=== PATIENT | male | born 1950 | race Caucasian/White ===

== ENCOUNTER 2017-10-07 12:05 | Emergency (ER) | payer MEDICARE, OTHER ==
[~2017-10-07] VITALS: Ht 167.6 cm; Wt 121.4 kg
--- OUTSIDE RECORDS SUMMARY | ~2017-10-07 | XMS ---
Demographics + + + | Address | [address] | | | [place] [address] | + + + | Preferred Language | Unknown | + + + | Marital Status | Unknown | + + + | Sikh Affiliation | Unknown | + + + | Race | Unknown | + + + | Ethnic Group | Unknown | + + + Author + + + | Author | [facility] | + + + | Organization | [facility] | + + + | Address | [address] | | | [place] [address] | + + + | Phone | | + + + Care Team Providers + + + + | Care Gluer And Wedger Name | Role | Phone | + + + + Unavailable | Unavailable | + + + + PROBLEMS +---------+ + + +--------+ + + | Type | Condition | ICD9-CM | LUB33-GA | Onset | Condition | SNOMED | | | | Code | Code | Dates | Status | Code | +---------+ + + +--------+ + + | Problem | Cardiac | | I49.9 | | Active | [id number] | | | arrhythmia | | | | | | +---------+ + + +--------+ + + | Problem | Hypertensi | | I10 | | Active | [id number] | | | on | | | | | | +---------+ + + +--------+ + + ALLERGIES + + + + +--------+ | Substance | Reaction | Event Type | Date | Status | + + + + +--------+ | Codeine | change in | Drug Allergy | Mar, | Active | | | mental status | | | | + + + + +--------+ | Norvasc | change in | Drug Allergy | Mar, | Active | | | mental status | | | | + + + + +--------+ SOCIAL HISTORY Never Assessed PLAN OF CARE + +---------+ | Activity | Details | + +---------+ +---+ | | +---+ + + + | Follow Up | 4 Weeks Reason:null | + + + | Pending Test | Urinalysis, w/Culture Reflex | + + + VITAL SIGNS + + + + | Height | 66 in | 2017-04-17 | + + + + | Weight | 264.0 lbs | 2017-04-17 | + + + + | BMI | 42.61 kg/m2 | 2017-04-17 | + + + + | Temperature | 97.9 degrees Fahrenheit | 2017-04-17 | + + + + | Heart Rate | 89 /min | 2017-04-17 | + + + + | Blood pressure systolic | 159 mm Hg | 2017-04-17 | + + + + | Blood pressure diastolic | 84 mm Hg | 2017-04-17 | + + + + MEDICATIONS + + + + +--------+ + +--------+ | Medicati | Instruct | Dosage | Frequenc | Start | End Date | Duration | Status | | on | ions | | y | Date | | | | + + + + +--------+ + +--------+ | Pantopra | Orally | 1 tablet | 24h | | | 30 days | Active | | zole | Once a | | | | | | | | Sodium | day | | | | | | | | 40 MG | | | | | | | | + + + + +--------+ + +--------+ | Warfarin | Orally | 1 tablet | 24h | | | | Active | | Sodium | Once a | | | | | | | | 8 mg | day | | | | | | | + + + + +--------+ + +--------+ | Trimetho | Orally | 1 tablet | | | | | Active | | prim 100 | prn | | | | | | | | mg | | | | | | | | + + + + +--------+ + +--------+ | Lisinopr | Orally | 1 tablet | 12h | | | 30 days | Active | | il 40 MG | Twice a | | | | | | | | | day | | | | | | | + + + + +--------+ + +--------+ | Metformi | | 1 tab | | | | | Active | | n | | | | | | | | + + + + +--------+ + +--------+ | Percocet | Orally | 1 tablet | 6h | | | | Active | | 2.5-325 | every 6 | as | | | | | | | MG | hrs | needed | | | | | | + + + + +--------+ + +--------+ | Verapami | Orally | 1 tablet | 12h | | | 30 days | Active | | l HCl | Twice a | every | | | | | | | 240 MG | day | morning | | | | | | | | | with | | | | | | | | | food | | | | | | + + + + +--------+ + +--------+ | Sucralfa | Orally | 1 tablet | 8h | | | 30 days | Active | | te 1 GM | Three | | | | | | | | | times a | | | | | | | | | day | | | | | | | + + + + +--------+ + +--------+ | Metoclop | Orally | 1 tablet | | | | 30 days | Active | | ramide | QHS | | | | | | | | HCl 10 | | | | | | | | | MG | | | | | | | | + + + + +--------+ + +--------+ | Potassim | Orally | 1 tablet | 24h | | | | Active | | in 75 MG | Once a | | | | | | | | | day | | | | | | | + + + + +--------+ + +--------+ | Ropiniro | Orally | 1 tablet | | | | | Active | | le HCl | as | | | | | | | | 0.25 MG | directed | | | | | | | + + + + +--------+ + +--------+ | Gabapent | Orally | 1 | | | | | Active | | in 100 | four | capsule | | | | | | | mg | times | | | | | | | | | day | | | | | | | + + + + +--------+ + +--------+ | GlipiZID | Orally | 1 tablet | 24h | | | | Active | | E 10 MG | Once a | | | | | | | | | day | | | | | | | + + + + +--------+ + +--------+ RESULTS + +--------+ + + | Name | Result | Date | Reference Range | + +--------+ + + | Urinalysis, Dip | | 2017-04-17 | | | (IH) | | | | + +--------+ + + | Specific Boyds | 1.025 | | | + +--------+ + + | pH | 5 | | | + +--------+ + + | Leukocytes | 500 | | | + +--------+ + + | Nitrite, Urine | pos | | | + +--------+ + + | Protein | 30 | | | + +--------+ + + | Glucose | 100 | | | + +--------+ + + | Ketones | neg | | | + +--------+ + + | Urobilingen, | norm | | | | Semi-Qn | | | | + +--------+ + + | Bilirubin | neg | | | + +--------+ + + | Blood Hemoglobin | 50 | | | | (BLD) | | | | + +--------+ + + PROCEDURES + + +--------+ + | Procedure | Date Ordered | Result | Body Site | + + +--------+ + | LAB URINALYSIS (DIP | Apr 17, 2017 | | | | STICK ONLY | | | | + + +--------+ + | US URINE CAPACITY | Sept 2016 | | | | MEASURE | | | | + + +--------+ + IMMUNIZATIONS No Known Immunizations MEDICAL (GENERAL) HISTORY + + + + | Type | Description | Date | + + + + | Medical History | Hypertension | | + + + + | Medical History | SVT - was evaluated by | | | | [facility] 2008 | | + + + + | Medical History | diabetes mallitus | | + + + + | Medical History | Urinary Incontinence - on | | | | prophylactic abx. | | + + + + | Medical History | Spinal Bifida - uses a | | | | walker, gets assistance | | | | with bathing, and dressing, | | | | high fall risk. | | + + + + | Medical History | hx/o ischemic colitis 2010 | | + + + + | Medical History | GERD | | + + + + | Medical History | Obesity | | + + + + | Medical History | Insomnia | | + + + + | Medical History | Right shoulder injury 2005 | | | | - on chronic opioids | | | | hydrocodone two at | | | | bedtime | | + + + + | Medical History | uses a walker since 05/2013 | | + + + + | Medical History | Peripheral neuropathy | | | | started on gabapentin by | | | | Be in 2013 | | + + + + | Medical History | Atrial fibrillation | | + + + + | Medical History | depression | | + + + + | Medical History | osteoarthritis | | + + + + | Medical History | ischemic colitis | | + + + + | Surgical History | Colonoscopy | 2007 2009 | + + + + | Surgical History | Cholecystectomy | 1988 | + + + + | Surgical History | Urethral stenosis s/p | 14yrs old | | | repair | | + + + + | Surgical History | multiple graft bones in | 1954 | | | shins and feet due to lack | | | | of development | | + + + + | Surgical History | EGD | 2007 | + + + + | Surgical History | surgeries for spina bifida | | | | x21 | | + + + + | Surgical History | appendectomy | | + + + + | Surgical History | bladder mass exision | 1965 | + + + + | Surgical History | testicle cyst removal age | | | | 32 | | + + + + | Surgical History | Bladder calculus | | + + + + | Hospitalization History | [facility] re: chest pain | 11/19/13 | + + + + | Hospitalization History | Sepsis due to UTI | June 2016 | + + + +"
--- OUTSIDE RECORDS SUMMARY | ~2017-10-07 | XMS | Clinical Summary ---
Demographics + + + | Address | [address] | | | [address] | | | [place] [address] | + + + | Home Phone | | + + + | Preferred Language | Unknown | + + + | Marital Status | Single | + + + | Methodist Affiliation | SYNAGOGUE | + + + | Race | White | + + + | Ethnic Group | Not or | + + + Author + + + | Author | [facility] | + + + | Organization | [facility] | + + + | Address | Unknown | + + + | Phone | Unavailable | + + + Support + + +---------+ + | Name | Relationship | Address | Phone | + + +---------+ + | KANDI PEARSON | ECON | Unknown | | + + +---------+ + Care Team Providers + +------+ + | Care Supply Analyst Name | Role | Phone | + +------+ + | Unknown, Physician | PP | Unavailable | + +------+ + Allergies + + + +--------+ + | Active Allergy | Reactions | Severity | Noted | Comments | | | | | Date | | + + + +--------+ + | Amlodipine | | | | | + + + +--------+ + | Codeine | | | | | + + + +--------+ + Current Medications + + +---------+---------+------+------+-------+ | Prescription | Sig. | Disp. | Refills | Star | End | Statu | | | | | | t | Date | s | | | | | | Date | | | + + +---------+---------+------+------+-------+ | polyethylene | Take 1 packet by | | 6 | 06/0 | | Activ | | glycol (MIRALAX) 17 | mouth 2 Times Daily | | | 5/20 | | e | | gram/dose powder | As Needed. | | | 10 | | | + + +---------+---------+------+------+-------+ | acetaminophen | Take 1 tablet by | | 0 | 10/2 | | Activ | | (MAPAP EXTRA | mouth Every 6 Hours | | | 7/20 | | e | | STRENGTH) 500 mg | As Needed. | | | 09 | | | | tablet | | | | | | | + + +---------+---------+------+------+-------+ | Glucosamine | Take 1 capsule by | | 5 | 10/2 | | Activ | | Sulfate 500 mg Cap | mouth Daily. | | | 7/20 | | e | | | | | | 09 | | | + + +---------+---------+------+------+-------+ | metoclopramide | Take 1 tablet by | | 1 | 06/3 | | Activ | | (REGLAN) 10 mg | mouth 4 Times Daily. | | | 0/20 | | e | | tablet | | | | 10 | | | + + +---------+---------+------+------+-------+ | amitriptyline | Take 2 tablets by | | 5 | 04/2 | | Activ | | (ELAVIL) 10 mg | mouth At Bedtime As | | | 1/20 | | e | | tablet | Needed. | | | 10 | | | + + +---------+---------+------+------+-------+ | ibuprofen | Take 600 mg by mouth | | | | | Activ | | (ADVIL;MOTRIN) 600 | Every 6 Hours As | | | | | e | | mg tablet | Needed. | | | | | | + + +---------+---------+------+------+-------+ | sucralfate | Take 1 tablet by | 120 | 11 | 11/0 | | Activ | | (CARAFATE) 1 gram | mouth 4 Times Daily | tablet | | 8/20 | | e | | tablet | (with Meals and | | | 11 | | | | | Nightly). | | | | | | + + +---------+---------+------+------+-------+ | aspirin 81 mg | Take 81 mg by mouth | | | | | Activ | | chewable tablet | Daily. | | | | | e | + + +---------+---------+------+------+-------+ | lisinopril | Take 1 tablet by | 60 | 11 | 01/3 | | Activ | | (PRINIVIL;ZESTRIL) | mouth 2 Times Daily. | tablet | | 0/20 | | e | | 40 mg tablet | | | | 12 | | | + + +---------+---------+------+------+-------+ | | Take 1 tablet by | 60 | 0 | 06/1 | | Activ | | HYDROcodone-acetamin | mouth Every 4 Hours. | tablet | | 8/20 | | e | | ophen (VICODIN) | | | | 12 | | | | 5-500 mg Tab | | | | | | | + + +---------+---------+------+------+-------+ | verapamil (CALAN | | | | 05/0 | | Activ | | SR) 240 mg CR tablet | | | | 9/20 | | e | | | | | | 12 | | | + + +---------+---------+------+------+-------+ | | Take 1 tablet by | | | | | Activ | | amoxicillin-clavulan | mouth 2 Times Daily. | | | | | e | | ate (AUGMENTIN) | | | | | | | | 875-125 mg per | | | | | | | | tablet | | | | | | | + + +---------+---------+------+------+-------+ | omeprazole | Take 1 capsule by | 60 | 1 | 08/0 | | Activ | | (PRILOSEC) 20 mg | mouth 2 Times Daily | capsule | | 6/20 | | e | | capsule | As Needed. | | | 12 | | | + + +---------+---------+------+------+-------+ | digoxin (LANOXIN) | Take 1 tablet by | 30 | 2 | 09/2 | | Activ | | 125 mcg tablet | mouth Daily. | tablet | | 7/20 | | e | | | | | | 12 | | | + + +---------+---------+------+------+-------+ Active Problems + + + | Problem | Noted Date | + + + | Colitis, ischemic (HCC) | 01/18/2012 | + + + | Nodule of neck | 07/15/2011 | + + + + + | Overview: He has a approx 1 cm firm, mobile nodule on the | | left lateral neck. States he has had it for years. Has been | | evaluated by Dr. Gambino and another doctor and was told it was | | not a problem, but patient doesn't recall what it is. He states | | is has drained before. It is non-tender and has not grown. No | | known history of TB.-lymph node vs. Branchial cleft cyst-CBC | | mildly elevated, likely secondary to infection. Lymphoma would | | seem less likely, no b symptoms, nodule appears stable, no | | others-Ultrasound ordered Last Assessment & Plan: He has a | | approx 1 cm firm, mobile nodule on the left lateral neck. States | | he has had it for years. Has been evaluated by Dr. Gambino and | | another doctor and was told it was not a problem, but patient | | doesn't recall what it is. He states is has drained before. It | | is non-tender and has not grown. No known history of TB.-lymph | | node vs. Branchial cleft cyst-CBC mildly elevated, likely | | secondary to infection. Lymphoma would seem less likely, no b | | symptoms, nodule appears stable, no others-Ultrasound ordered | + + + + + | Healthcare maintenance | 07/15/2011 | + + + | Insomnia, unspecified | 01/22/2009 | + + + + + | Overview: concern for sleep apnea | + + + + + | Other abnormal blood chemistry | 01/22/2009 | + + + + + | Overview: elevated blood sugar | + + + + + | Generalized hyperhidrosis | 01/22/2009 | + + + + + | Overview: associated with tachcardia 50% of time | + + + + + | Pain in joint, shoulder region | 04/20/2008 | + + + + + | Overview: right,recent fall | + + + + + | Tachycardia, unspecified | 04/13/2008 | + + + + + | Overview: palpitations?paroxsymal a fib? | + + +---------+ + | Dysuria | 12/23/2007 | +---------+ + + + | Overview: nocturia,chnages with spina bifida | + + + + + | Retention of urine, unspecified | 12/23/2007 | + + + + + | Overview: related to spina bifida | + + + + + | Cardiac dysrhythmia, unspecified | 09/29/2007 | + + + + + | Overview: 427.89,by pt report | + + + + + | Slow transit constipation | 09/29/2007 | + + + | Unspecified essential hypertension | 02/18/2007 | + + + | Esophageal reflux | 02/18/2007 | + + + + + | Overview: with dysphagia | + + +-----+ + | UTI | 02/18/2007 | +-----+ + + + | Overview: as a history of spina bifida with recurrent uti's. | | He has a report of neurogenic bladder, but denies any issues | | with continence. He states he has been on antibiotic for nearly | | his entire life. Most recently is has been on nitrofurantoin for | | the last year. He reports having some sort of growth removed | | from his bladder as a child, and was seen by Dr. Quintana (urology) | | around 2007 for what sounds like a stricture. His most recent | | urinalyses have been mixed, but the last speciated sample grew | | Klebsiella that was resistant to both cipro and macrobid. Last | | Assessment & Plan: History of chronic UTI's since childhood. | | Appears to be improving.-check UA-Hold antibiotics for now | + + + + + | Osteoarthrosis, unspecified whether generalized or localized, | 02/18/2007 | | unspecified site | | + + + + + | Overview: mutiple sites | + + + + + | Spina bifida without mention of hydrocephalus, unspecified region | 02/18/2007 | + + + + + | Overview: multiple surg on feet,legs, altered gait | + + + +---+ | Spina bifida | | + +---+ Immunizations + + + + | Name | Dates Previously Given | Next Due | + + + + | Influenza | 12/28/2009, 05/10/2007 | | | (Historical) | | | + + + + | Influenza, Preserve | 05/15/2011 | | | Free | | | + + + + | Pneumovax | 12/28/2009 | | + + + + Family History + + +------+ + | Medical History | Relation | Name | Comments | + + +------+ + | Cancer | Father | | | + + +------+ + | Heart Disease | Father | | | + + +------+ + | High Blood Pressure | Father | | | + + +------+ + | Arthritis | Maternal | | | | | Grandmoth | | | | | er | | | + + +------+ + | Diabetes | Maternal | | | | | Grandmoth | | | | | er | | | + + +------+ + | High Blood Pressure | Maternal | | | | | Grandmoth | | | | | er | | | + + +------+ + | Arthritis | Mother | | | + + +------+ + | Depression | Mother | | | + + +------+ + | Diabetes | Mother | | | + + +------+ + | Heart Disease | Mother | | | + + +------+ + | High Blood Pressure | Mother | | | + + +------+ + | Obesity | Mother | | | + + +------+ + | Thyroid Disease | Mother | | | + + +------+ + | Vision Loss | Mother | | | + + +------+ + + +------+ + + | Relation | Name | Status | Comments | + +------+ + + | Father | | | | + +------+ + + | Maternal Grandfather | | | | + +------+ + + | Maternal Grandmother | | | | + +------+ + + | Mother | | Alive | | + +------+ + + | Paternal Grandfather | | | | + +------+ + + | Paternal Grandmother | | | | + +------+ + + | Sister | | Alive | | + +------+ + + Social History + +-------+ +--------+------+ | Tobacco Use | Types | Packs/Day | Years | Date | | | | | Used | | + +-------+ +--------+------+ | Never Smoker | | | | | + +-------+ +--------+------+ + +---+---+---+ | Smokeless Tobacco: | | | | | Never Used | | | | + +---+---+---+ + + +---------+ + | Alcohol Use | Drinks/We | oz/Week | Comments | | | ek | | | + + +---------+ + | No | | | | + + +---------+ + + + + | Sex Assigned at | Date Recorded | | | | + + + | Not on file | | + + + Last Filed Vital Signs + + + + | Vital Sign | Reading | Time Taken | + + + + | Blood Pressure | 163/87 | 01/20/2012 1:41 PM PDT | + + + + | Pulse | 69 | 01/20/2012 1:41 PM PDT | + + + + | Temperature | 35.3 C (95.5 F) | 01/20/2012 1:41 PM PDT | + + + + | Respiratory Rate | 20 | 01/20/2012 1:41 PM PDT | + + + + | Oxygen Saturation | 95% | 01/20/2012 1:41 PM PDT | + + + + | Inhaled Oxygen | - | - | | Concentration | | | + + + + | Weight | 104.4 kg (230 lb 4 | 07/22/2011 11:08 AM PST | | | oz) | | + + + + | Height | 167.6 cm (5' 6") | 07/22/2011 11:08 AM PST | + + + + | Body Mass Index | 37.16 | 07/22/2011 11:08 AM PST | + + + + Plan of Treatment + + + + + | Health Maintenance | Due Date | Last Done | Comments | + + + + + | Hep C Ab Screening | | | | | | 3 | | | + + + + + | HIV Screening | | | | | | 8 | | | + + + + + | Tetanus | | | | | | 2 | | | + + + + + | Zoster Vaccine | | | | | | 3 | | | + + + + + | Diabetes Mellitus | | 01/20/2012, 01/19/2012, | | | Screening | 5 | 01/18/2012, Additional history | | | | | exists | | + + + + + | IMM Influenza (#1) | | 05/15/2011, 12/28/2009, | | | | 7 | 05/10/2007 | | + + + + + | Colon Cancer | | 10/13/2008 (Previously | | | Screening | 9 | completed) | | + + + + + Results Not on filefrom Last 3 Months Insurance + +--------+ +--------+ + + | Payer | Benefi | Subscriber | Type | Phone | Address | | | t Plan | ID | | | | | | / | | | | | | | Group | | | | | + +--------+ +--------+ + + | MEDICARE | MEDICA | [id number] | Medica | [phone] | [address] | | | RE [place] & | | re | [phone] | [place] [phone] | | | B | | | | | + +--------+ +--------+ + + | [place] | MEDICA | [id number] | Medica | [phone]- | [address] [address] | | | [place] | | id | [id number] | [place] [address] | | | DMAP | | | | | + +--------+ +--------+ + + + +--------+ +--------+ + + | Guarantor Name | Accoun | Relation to | Date | Phone | Billing Address | | | t Type | Patient | of | | | | | | | | | | + +--------+ +--------+ + + | HELDER BAJWA | Person | Self [birth year] Home: | [address] | | | al/Fam | | 1951 | [phone] | [address] | | | niko | | | [phone] | [place] [address] | + +--------+ +--------+ + + Advance Directives Patient has advance directives. For more information, please contact:[facility] [place] [address]
--- OUTSIDE RECORDS SUMMARY | ~2017-10-07 | XMS ---
Demographics + + + | Address | [address] | | | [place] [address] | + + + | Preferred Language | Unknown | + + + | Marital Status | Unknown | + + + | Oriental Orthodox Affiliation | Unknown | + + + | Race | Unknown | + + + | Ethnic Group | Unknown | + + + Author + + + | Author | [facility] | + + + | Organization | [facility] | + + + | Address | [address] | | | [place] [address] | + + + | Phone | | + + + Care Team Providers + + + + | Care Ciaio Counter Molder Name | Role | Phone | + + + + Unavailable | Unavailable | + + + + PROBLEMS +---------+ + + +--------+ + + | Type | Condition | ICD9-CM | LYS35-ND | Onset | Condition | SNOMED | | | | Code | Code | Dates | Status | Code | +---------+ + + +--------+ + + | Problem | Cardiac | | I49.9 | | Active | [id number] | | | arrhythmia | | | | | | +---------+ + + +--------+ + + | Problem | Hypertensi | | I10 | | Active | [id number] | | | on | | | | | | +---------+ + + +--------+ + + ALLERGIES No Information SOCIAL HISTORY Never Assessed PLAN OF CARE VITAL SIGNS MEDICATIONS + + + + + + + +--------+ | Medicati | Instruct | Dosage | Frequenc | Start | End Date | Duration | Status | | on | ions | | y | Date | | | | + + + + + + + +--------+ | Percocet | Orally | 1 tablet | 6h | | | | Active | | 2.5-325 | every 6 | as | | | | | | | MG | hrs | needed | | | | | | + + + + + + + +--------+ | Ropiniro | Orally | 1 tablet | | | | | Active | | le HCl | as | | | | | | | | 0.25 MG | directed | | | | | | | + + + + + + + +--------+ | Metformi | | 1 tab | | | | | Active | | n | | | | | | | | + + + + + + + +--------+ | GlipiZID | Orally | 1 tablet | 24h | | | | Active | | E 10 MG | Once a | | | | | | | | | day | | | | | | | + + + + + + + +--------+ | Trimetho | Orally | 1 tablet | | | | | Active | | prim 100 | prn | | | | | | | | mg | | | | | | | | + + + + + + + +--------+ | Pantopra | Orally | 1 tablet | 24h | | | 30 days | Active | | zole | Once a | | | | | | | | Sodium | day | | | | | | | | 40 MG | | | | | | | | + + + + + + + +--------+ | Lisinopr | Orally | 1 tablet | 12h | | | 30 days | Active | | il 40 MG | Twice a | | | | | | | | | day | | | | | | | + + + + + + + +--------+ | Bactrim | Orally | 1 tablet | | 26 Sep, | 25 Dec, | 30 days | Active | | DS | once | | | 2017 | 2017 | | | | 800-160 | daily at | | | | | | | | MG | bedtime | | | | | | | + + + + + + + +--------+ | Warfarin | Orally | 1 tablet | 24h | | | | Active | | Sodium | Once a | | | | | | | | 8 mg | day | | | | | | | + + + + + + + +--------+ | Doxycycl | Oral | as | 12h | 26 Sep, | 3 Oct, | 7 days | Active | | ine | every 12 | directed | | 2017 | 2017 | | | | Hyclate | hrs | | | | | | | | 100 MG | | | | | | | | + + + + + + + +--------+ | Sucralfa | Orally | 1 tablet | 8h | | | 30 days | Active | | te 1 GM | Three | | | | | | | | | times a | | | | | | | | | day | | | | | | | + + + + + + + +--------+ | Potassim | Orally | 1 tablet | 24h | | | | Active | | in 75 MG | Once a | | | | | | | | | day | | | | | | | + + + + + + + +--------+ | Gabapent | Orally | 1 | | | | | Active | | in 100 | four | capsule | | | | | | | mg | times | | | | | | | | | day | | | | | | | + + + + + + + +--------+ | Metoclop | Orally | 1 tablet | | | | 30 days | Active | | ramide | QHS | | | | | | | | HCl 10 | | | | | | | | | MG | | | | | | | | + + + + + + + +--------+ | Verapami | Orally | [...] + + + + + + + +--------+ RESULTS No Results PROCEDURES No Known procedures IMMUNIZATIONS No Known Immunizations MEDICAL (GENERAL) HISTORY [...] | Medical History | hx/o ischemic colitis 2009 | | + + + + | Medical History | GERD | | + + + + | Medical History | Obesity | | + + + + | Medical History | Insomnia | | + + + + | Medical History | Right shoulder injury 2005 | | | | - on chronic opioids | | | | hydrocodone 5/325 two at | | | | bedtime [...] + | Surgical History | EGD | 2006 | + + + + | Surgical [...]
--- OUTSIDE RECORDS SUMMARY | ~2017-10-07 | XMS | Clinical Summary ---
Demographics + + + | Address | [address] | | | [address] | | | [place] [address] | + + + | Home Phone | | + + + | Preferred Language | Unknown | + + + | Marital Status | Single | + + + | Protestant Affiliation | [employer]IENTAL [employer]OX | + + + | Race | [...] Team Providers + +------+ + | Care Sprayer Automatic Spray Machine Name | Role | Phone | [...] + + | MEDICARE | MEDICA | [id number] | Medica | [phone] | [address] | | | RE A & | | re | [phone] | [place] [phone] | | | B | | | | | + +--------+ +--------+ + + | [place]ID [place] | MEDICA | [id number] | Medica | [phone] | [address] [address] | | | [place] | | id | [phone] | [place] [address] | | | DMAP | | | [...] | niko | | | [phone] | [place] [address] | + +--------+ +--------+ + + Advance Directives Patient has advance directives. For more information, please contact:[facility] [place] [address]
[~2017-10-07 12:05] MED LIST: AMITRIPTYLINE H10 MG; ASPIRIN EC81 MG; AUGMENTIN 875-1 EACH PO; BACTRIM 400-801 EACH PO; BACTRIM DS TAB1 EACH PO; CARAFATE1 GM PO; CEPHALEXIN250 MG; CHLORTHALIDONE25 MG; CHLORTHALIDONE25 MG PO; CIPROFLOXACIN500 MG PO; COLACE100 MG PO; CYMBALTA20 MG PO; DESITIN60 GM TOP; DIGOXIN125 MCG PO; DIGOXIN250 MCG PO; DOCUSATE SODIU100 MG; DOCUSATE SODIU100 MG PO; DULOXETINE HCL20 MG PO; GABAPENTIN100 MG PO; GLIPIZIDE XL10 MG PO; GLIPIZIDE XL5 MG PO; GLUCOSAMINE SU750 M1; GLUCOSAMINE1000 MG PO; GLYBURIDE1.25 MG PO; KLOR-CON 88 MEQ PO; LABETALOL HCL100 MG PO; LEVAQUIN500 MG PO; LISINOPRIL40 MG PO; LORATADINE10 MG PO; MACROBID 100 M100 MG PO; MAG-AL LIQUID30 ML PO; METFORMIN HCL500 M1 PO; METOCLOPRAMIDE10 MG PO; METRONIDAZOLE500 MG PO; MILK OF MA400 MG/5 M; MIRALAX17 GM PO; MOBIC15 MG PO; NORCO 5-325 TA1 EACH; NORCO 5-325 TA1 EACH PO; NYSTOP60 GM TOP; OMEPRAZOLE20 MG; PANTOPRAZOLE SO40 MG PO; PERCOCET 5-3251 EACH PO; POLYETHYLENE GL17 GM; POTASSIUM CHLO20 ME1 PO; PROTONIX40 MG PO; RANITIDINE HCL150 M1 PO; REQUIP0.25 MG PO; RESTASIS1 DROP OU; SUCRALFATE1 GM PO; SYSTANE BALANCE10 ML OP; TRIMETHOPRIM100 MG PO; TUMS200 MG; VERAPAMIL ER240 M1 PO; VERAPAMIL ER240 MG PO; VERAPAMIL HCL120 MG; WARFARIN SODIUM1 MG PO; WARFARIN SODIUM3 MG PO; WARFARIN SODIUM5 MG PO; XARELTO20 MG PO
[2017-10-07] MEDS ORDERED: OXYCODONE HCL5 MG PO (12:18)
[2017-10-07] MEDS ORDERED: BACTRIM DS TAB1 EACH PO (14:07)
[2017-10-07] MEDS ORDERED: KEFLEX500 MG PO (14:07)
== END 2017-10-07 14:30 | disposition home or self-care (01) ==
LOC: ED 12:05
DX: N39.0 Urinary tract infection, site not specified (principal); L02.411 Cutaneous abscess of right axilla; E66.01 Morbid (severe) obesity due to excess calories; I10 Essential (primary) hypertension; K21.9 Gastro-esophageal reflux disease without esophagitis; I48.91 Unspecified atrial fibrillation; Z88.8 Allergy status to other drugs, medicaments and biological substances; Z88.5 Allergy status to narcotic agent; Z79.84 Long term (current) use of oral hypoglycemic drugs; Z79.01 Long term (current) use of anticoagulants; Z79.899 Other long term (current) drug therapy
CPT/HCPCS: 71045; 80053; 81001; 83605; 85025; 87070; 87077; 87088; 87186; 87502; 99284; J7040

== ENCOUNTER 2017-11-01 08:44 | Emergency (ER) | payer MEDICARE, OTHER ==
[~2017-11-01] VITALS: Ht 167.6 cm; Wt 121.4 kg
[~2017-11-01 08:44] MED LIST changes: +KEFLEX500 MG PO; +OXYCODONE HCL5 MG PO
== END 2017-11-01 10:06 | disposition home or self-care (01) ==
LOC: ED 08:44
DX: L73.2 Hidradenitis suppurativa (principal); R05 Cough; I10 Essential (primary) hypertension; I48.91 Unspecified atrial fibrillation; Z88.5 Allergy status to narcotic agent; Z88.8 Allergy status to other drugs, medicaments and biological substances; Z79.899 Other long term (current) drug therapy; Z79.84 Long term (current) use of oral hypoglycemic drugs; Z79.01 Long term (current) use of anticoagulants
CPT/HCPCS: 71046; 87070; 87077; 87186; 99283

== ENCOUNTER 2018-01-22 05:35 | Day surgery (SDC) | payer MEDICARE, OTHER ==
[~2018-01-22] VITALS: Ht 167.6 cm; Wt 121.8 kg
--- NOTE | 2018-01-22 09:12 | NUR ---
[facility]18 [facility]12 [facility] AR[facility]IVED IN PACU SLEEPY WITH NO C/O'S. BLOOD SUGAR 159 ON ARRIVAL. 0910 OXYGEN REMOVED PER PT REQUEST. SATS 95% ON RA.
--- NOTE | 2018-01-22 11:11 | NUR ---
LE 0922 PT ARRIVED TO ROOM FROM PACU. PT AWAKE AND TALKING WITH STAFF. PT ASSISTED UP TO RESTROOM, PT TOLERATED WELL. PT BACK TO BED, C/O SLIGHT DIZZINESS. PT DENIES PAIN BUT IS SLIGHTLY NAUSEATED. FRIEND NELL IN TO SEE PT. WATER AT BEDSIDE, PT OFFERED FOOD, DECLINED. CALL LIGHT IN REACH.
--- NOTE | 2018-01-22 11:14 | NUR ---
LE 0950 IN TO CHECK ON PT, PT TALKING WITH FRIEND. PT STILL C/O SLIGHT NAUSEA AND COUGH. ZOFRAN GIVEN PER REQUEST. PT DENIES PAIN. NO FURTHER NEEDS AT THIS TIME,CALL LIGHT IN REACH.
--- NOTE | 2018-01-22 11:15 | NUR ---
LE 1045 IN TO CHECK ON PT, PT SITTING AT SIDE OF BED. PT RATES PAIN 0/10, NO NAUSEA AT THIS TIME. PT C/O SLIGHT COUGH. ADVISED THAT COUGH CAN BE DUE TO LMA WHEN IN OR, PT UNDERSTANDS. ADVISED TO DRINK FLUID TO HELP WITH COUGH. DISCUSSED DC, PT STATES HE IS READY TO GO HOME. IV DC'D. CONTACTED [facility] FOR TRANSPORT. DISCHARGE INSTRUCTIONS GIVEN. PT OUT OF DEPARTMENT IN WC WITH ADRIENNE FROM [facility].
--- NOTE | 2018-01-22 12:15 | OR ---
[facility] [address], [place] [address] Signed DATE OF OPERATION: 01/22/2018 SURGEON: Juan Alberto Alford MD PREOPERATIVE DIAGNOSIS: Bilateral axillary hidradenitis. POSTOPERATIVE DIAGNOSIS: Bilateral axillary hidradenitis. PROCEDURE: Excision of bilateral axillary hidradenitis (2.4 x 8 cm, 1.5 x 8 cm). ESTIMATED BLOOD LOSS: None. INDICATIONS: Carter is a 67-year-old gentleman, who was born with spina bifida. He has had many surgeries over the years. He has finally given up driving. 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 He has now moved into [facility]. He has been having trouble with cyst draining underneath both his armpits. He said the right one seems to be a little more than the left. He had been asked to see me as a general surgeon since the antibiotics were not working. In the office, I explained to Carter that he has classic hidradenitis. It is a skin condition and he needs have those areas excised completely in order for them to heal. He understands the nature of the curvilinear incision required to remove both areas. The one in the right armpit is at the inferior edge of the axillary hair. In the left armpit, it is actually out just slightly on the arm just past the crease with the arm joins the axilla. He understands that we will do this over the hospital with good lighting and lots of help in order to do the most effective job excision. He understands there is risk of surgery including, but not limited to bleeding, infection, scarring, change in contour of the skin as well and as well as ongoing hidradenitis and other areas of the axilla. He had expressed understanding wished to proceed. PROCEDURE NOTE: I met with Carter and his friend in our preop area. We identified both areas and circled them appropriately. He has another area higher in the right axilla, right in the crease where the arm joins this axilla, and he said that does not seem to drain, so we are going to leave that alone. After this, Carter was taken into the operating room and placed in the supine position under general endotracheal tube anesthesia. He was given Electronically Signed By: JUAN ALBERTO ALFORD MD 01/22/18 1215 PATIENT NAME: HELDER BAJWA OPERATIVE REPORT DATE OF : 54 REPORT #: [id number] PHYSICIAN: JUAN ALBERTO ALFORD MD PCP: MECHE VILLARREAL MD REPORT IS CONFIDENTIAL AND NOT TO BE RELEASED WITHOUT AUTHORIZATION [facility] [address], [place] [address] Signed preoperative antibiotics along with subcutaneous heparin. SCDs were utilized. He was then prepped and draped in the usual sterile fashion. We approached the right axilla 1st. A curvilinear incision was made approximately 1.5 cm wide by about 8 cm in length. The entire skin and adipose tissue was excised and passed off the field. Local anesthetic had been injected into the entire operative wound. The wound was irrigated and suctioned out until clear. The dermis was reapproximated with interrupted 3-0 subcuticular Monocryl sutures. The skin edges were reapproximated with running 6-0 fast absorbing plain gut suture. Dry gauze and tape were then applied. After this, we approached his left axilla. The lesion was 2 cm wide and it was actually just out on his arm lateral to the crease where the arm joins the axilla. We used a curvilinear incision of 8 cm in length and about 2.4 cm wide, and excised all that skin along with underlying adipose tissue. Again, the wound was irrigated and suctioned out until clear. Local anesthetic had been injected into the wound. The dermis was reapproximated with interrupted 3-0 Monocryl sutures. The skin edges were reapproximated a running 6-0 fast absorbing plain gut suture. Dry gauze and tape were then applied. Helder was then awakened from his anesthesia, extubated in the OR, and taken to recovery room in stable condition. Juan Alberto Alford MD ALB/MODL /[id number] cc: MD Jewel Roper MD Andrew L Bower, MD Copies: MECHE VILLARREAL MD, MERSHED MD BOWER, ANDREW L MD ~ Electronically Signed By: JUAN ALBERTO ALFORD MD 01/22/18 1215 PATIENT NAME: HELDER BAJWA OPERATIVE REPORT DATE OF : 54 REPORT #: [id number] PHYSICIAN: JUAN ALBERTO ALFORD MD PCP: MECHE VILLARREAL MD REPORT IS CONFIDENTIAL AND NOT TO BE RELEASED WITHOUT AUTHORIZATION
== END 2018-01-22 11:05 | disposition home or self-care (01) ==
LOC: DS 05:35
PROVIDERS: Colon & Rectal Surgery
PROC: 0JBD0ZZ Excision of Right Upper Arm Subcutaneous Tissue and Fascia, Open Approach (ICD-10-PCS; 2018-01-22)
PROC: 0JBF0ZZ Excision of Left Upper Arm Subcutaneous Tissue and Fascia, Open Approach (ICD-10-PCS; principal; 2018-01-22 06:45)
DX: L73.2 Hidradenitis suppurativa (principal); I48.91 Unspecified atrial fibrillation; G47.00 Insomnia, unspecified; I10 Essential (primary) hypertension; K21.9 Gastro-esophageal reflux disease without esophagitis; K44.9 Diaphragmatic hernia without obstruction or gangrene; N39.0 Urinary tract infection, site not specified; E11.42 Type 2 diabetes mellitus with diabetic polyneuropathy; F32.9 Major depressive disorder, single episode, unspecified; D64.9 Anemia, unspecified; Z88.5 Allergy status to narcotic agent; Z88.8 Allergy status to other drugs, medicaments and biological substances; Z79.899 Other long term (current) drug therapy; Z79.01 Long term (current) use of anticoagulants
CPT/HCPCS: J0330; J0690; J1644; J2250; J2370; J2405; J2704; J3010

== ENCOUNTER 2018-10-31 10:27 | Emergency (ER) | payer MEDICARE, OTHER ==
[~2018-10-31] VITALS: Ht 167.6 cm; Wt 121.8 kg
--- OUTSIDE RECORDS SUMMARY | ~2018-10-31 | XMS | Encounter Summary ---
Demographics + + + | Address | [address] | | | [place] [address] | + + + | Home Phone | | + + + | Preferred Language | Unknown | + + + | Marital Status | | + + + | Zoroastrian Affiliation | Unknown | + + + | Race | Unknown | + + + | Ethnic Group | Unknown | + + + Author + + + | Author | [facility] | + + + | Organization | [facility] | + + + | Address | Unknown | + + + | Phone | Unavailable | + + + Support + + +---------+ + | Name | Relationship | Address | Phone | + + +---------+ + | Kirstie Gates | ECON | Unknown | | + + +---------+ + | Leora Poole | ECON | Unknown | | + + +---------+ + Care Team Providers + +------+ + | Care A R Specialist Name | Role | Phone | + +------+ + | Meche Villarreal MD | PCP | | + +------+ + Reason for Referral MRI/CAT Scan (Routine) + +--------+ + + + + | Status | Reason | Specialty | Diagnoses / | Referred By | Referred To | | | | | Procedures | Contact | Contact | + +--------+ + + + + | Authorized | | Radiology | Diagnoses | Bar | [facility] [address] | | | | | | DALY Woodard | [address] | | | | | Spondylolist | [address] | | | | | hesis of | [place] | [place] | | | | | cervical | [place] | [address] Phone: | | | | | region | [place], [place] | [phone] | | | | | Degeneration | [address] | | | | | | of | Phone: | | | | | | intervertebr | [phone] | | | | | | al disc of | Fax: | | | | | | cervical | [phone] | | | | | | region | | | | | | | Bulging of | | | | | | | cervical | | | | | | | intervertebr | | | | | | | al disc | | | | | | | Cervicalgia | | | | | | | Procedures | | | | | | | CT cervical | | | | | | | spine wo | | | | | | | contrast | | | + +--------+ + + + + Reason for Visit Consultation (Routine) + +--------+ + + + + | Status | Reason | Specialty | Diagnoses / | Referred By | Referred To | | | | | Procedures | Contact | Contact | + +--------+ + + + + | Authorized | | Neurosurgery | Diagnoses | Kristian, | Bar, | | | | | | Meche Casey, | Marco C, DALY | | | | | Spondylolist | MD [address] | | | | | [address] | [place], | [place] [address] | | | | | cervical | [place] | [place] | | | | | region | [place], | [place] | | | | | | [place] [address] | [address] Phone: | | | | | | Phone: | [phone] | | | | | | [phone] | Fax: | | | | | | Fax: | [phone] | | | | | | [phone] | | + +--------+ + + + + Encounter Details +--------+---------+ + + + | Date | Type | Department | Care Team | Description | +--------+---------+ + + + | 10/14/ | Office | [facility] | Marco Dinero, | Spondylolisthesis of | | 2019 | Visit | [facility] | 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 SUPERVISOR [address] | cervical region | | | | [address] | [address], | (Primary Dx); | | | | [place] | [place] [address] | Degeneration of | | | | [address] | [phone] | intervertebral disc | | | | [phone] | | of cervical region; | | | | | | Bulging of cervical | | | | | | intervertebral disc; | | | | | | Cervicalgia | +--------+---------+ + + + Social History + +-------+ [...] on file | | + + + as of this encounter Last Filed Vital Signs + + + + | Vital Sign | Reading | Time Taken | + + + + | Blood Pressure | 155/87 | 10/14/2018 1:09 PM PDT | + + + + | Pulse | 81 | 10/14/2018 1:09 PM PDT | + + + + | Temperature | - | - | + + + + | Respiratory Rate | - | - | + + + + | Oxygen Saturation | - | - | + + + + | Inhaled Oxygen | - | - | | Concentration | | | + + + + | Weight | 117.9 kg (260 lb) | 10/14/2018 1:09 PM PDT | + + + + | Height | 167.6 cm (5' 6") | 10/14/2018 1:09 PM PDT | + + + + | Body Mass Index | 41.97 | 10/14/2018 1:09 PM PDT | + + + + in this encounter Progress Notes Marco Dinero ARNP - 10/14/2018 1:00 PM PDTFormatting of this note may be different fro m the original. Neurosurgery Helder Holguin is a 67 y.o. male seen in consultation at the request of Meche Casey Feli son. Referring Provider: Meche Villarreal History Obtained from: Patient Subjective History of Present Illness: Helder Holguin is a 67 y.o. male seen in consultation at the request of Tammy Villarreal MD for complaints of pain that is located in the left lateral neck with radiation to t he left trapezius. He states that he has difficulty at times closing his 3rd and 4th digits of the right hand. He reports that about 4 weeks ago he turned his neck to the left and fe lt a "pop" and started to have increased pain over the left neck. He states that the pain i ncreased over the next 3-4 days. He is having difficulty sleeping at night. The patient re ports that the pain does not radiate to the upper extremities. He does have history of righ t shoulder issues over the years for which he has been getting injections which have helped. Pain is intermittent. Pain has increased. He rates his pain at its worst a 9/10, at its least a 5/10, on average a 6/10 and is currently a 5/10. Pain feels like aching, throbbing, sharp and stabbing. coughing, sneezing, physical activity and lying down makes the pain wo rse. relaxing, medicines and cold makes the pain better. Associated symptoms are weakness, increased sensitivity to touch and muscle spasms, tightness. Sleep is interrupted by the pain more than three times per night. Leaning forward the pain is worse. Leaning backward the pain is worse. Conservative treatments tried: Conservative measures tried and worked well are heat/cold therapy. Conservative measures t ried and did not work are massage and physical therapy. Pt was done for low back about 3 mo nths ago but nothing for the neck. Medications tried are Tylenol. He has not had nerve blo cks or injections for pain relief. History of cancer, fever, or infection?: yes, chronic UTI Bowel and Bladder Changes/Incontinence?: no, states he has been dealing with urinary retent ion since he was very young. Time lost at work due to pain?: no Litigation/Workman's Compensation?: no Past Medical History Diagnosis Date Depression GERD (gastroesophageal reflux disease) Hypertension Type 2 diabetes mellitus (HCC) Past Surgical History Procedure Laterality Date KIDNEY STONE SURGERY 2016 Allergies Allergen Reactions Amlodipine Other (See Comments) Weakness Codeine Other (See Comments) Hallucinations Current Outpatient Prescriptions Medication Sig Dispense Refill acetaminophen (MAPAP) 500 MG tablet Take 1 tablet by mouth. amitriptyline (ELAVIL) 10 MG tablet Take 2 tablets by mouth. Glucosamine Sulfate 500 MG CAPS Take 1 capsule by mouth. metoclopramide (REGLAN) 10 MG tablet Take 1 tablet by mouth. No current facility-administered medications for this visit. History reviewed. No pertinent family history. Social History Social History Marital status: Spouse name: N/A Number of children: N/A Years of education: N/A Social History Main Topics Smoking status: None Smokeless tobacco: None Alcohol use None Drug use: Unknown Sexual activity: Not Asked Other Topics Concern None Social History Narrative None Review of Systems: ROS As per HPI, otherwise a 10 point ROS was performed and was negative OBJECTIVE: PHYSICAL EXAM: Vital Signs: Vitals: 10/14/18 1309 BP: 155/87 Pulse: 81 Body mass index is 41.97 kg/m. Constitutional: Well-developed, morbidly obese, in no apparent distress, appears stated ag e, casually dressed, well-groomed Psychiatric: He has a normal mood and affect. His behavior is normal. Thought content nor mal. HEENT: Normocephalic, atraumatic, neck supple Skin: Skin is warm and dry. No rash or acute lesions noted. He is not diaphoretic. No eryt trish. No pallor. Cardiovascular: Normal rate. Pulmonary/Chest: Effort normal. No respiratory distress. Abdominal: Soft. Nontender. Vascular: Edematous arms and legs. Musculoskeletal: Normal tone, no fasciculations or atrophy, Phalen's test negative, Tinel' s sign absent, shoulder ROM normal Neck: Normal range of motion. Neurological: Mentation: Alert and oriented x 3, fluent speech Motor: MMT RIGHT LEFT Comments Upper Trap (C4) 5 /5 5 /5 Deltoids (C5) 5 /5 5 /5 Biceps (C6) 5 /5 5 /5 Triceps (C7) 5 /5 5 /5 Finger Flex (C8) 5 /5 5 /5 Intrinsics (T1) 5 /5 5 /5 Spurling sign Normal Normal left sided neck pain with rotation movments L'Hermitte's sign Normal Normal Reflexes: Biceps 2 /4 2 /4 Triceps 2 /4 2 /4 Gait: Uses a 4 wheeled walker Sensation: LT and pin intact in the upper extremities IMAGING STUDIES: Both the films and available radiology reports are personally reviewed. MRI cervical spine done on 09/01/2018: There is anterior subluxation of C3 on C4, reversal of normal lordosis in the cervical spin e. There is multiple disc bulges the cervical spine also. There is no significant central canal stenosis seen in the cervical spine. There is normal signal throughout the cervical c ord. Neural foramina are narrowed at multiple levels due to uncovertebral and facet hypertr ophy. At the C3-4 level there is moderate bilateral neural foraminal narrowing. At C4-5 th e right neural foramen is significantly narrowed, left is not effective. At C5-6 there is m oderate right and mild left neural foraminal narrowing. At C6-7 the neural foramina are mod erately narrowed. At C7-T1 the neural foramina are widely patent. X-ray cervical spine done on 08/31/2018: At the C3-4 level there is severe disc height loss. There is interval development of anter ior listhesis of C3 on C4 with mild focal kyphosis. At C4-5 and C5-6 there is significant l oss of disc height and small endplate osteophytes. ASSESSMENT and PLAN: Visit Diagnoses and Associated Orders: Spondylolisthesis of cervical region - X-ray cervical spine limited 2-3 view; Future - CT cervical spine wo contrast; Future Degeneration of intervertebral disc of cervical region - X-ray cervical spine limited 2-3 view; Future - CT cervical spine wo contrast; Future Bulging of cervical intervertebral disc - X-ray cervical spine limited 2-3 view; Future - CT cervical spine wo contrast; Future Cervicalgia - X-ray cervical spine limited 2-3 view; Future - CT cervical spine wo contrast; Future I did discuss: - The patient has complaints of pain that is located in the left lateral neck with radiat ion to the left trapezius. He states that he has difficulty at times closing his 3rd and 4t h digits of the right hand. He reports that about 4 weeks ago he turned his neck to the lef t and felt a "pop" and started to have increased pain over the left neck. He states that th e pain increased over the next 3-4 days. He is having difficulty sleeping at night. The pamela clark reports that the pain does not radiate to the upper extremities. He does have history of right shoulder issues over the years for which he has been getting injections which have helped. Pain is intermittent. Pain has increased. - MRI cervical spine shows anterior subluxation of C3 on C4, reversal of normal lordosis i n the cervical spine. There is multiple disc bulges the cervical spine also. There is no s ignificant central canal stenosis seen in the cervical spine. There is normal signal throug hout the cervical cord. Neural foramina are narrowed at multiple levels due to uncovertebra l and facet hypertrophy. At the C3-4 level there is moderate bilateral neural foraminal boo rowing. At C4-5 the right neural foramen is significantly narrowed, left is not effective. At C5-6 there is moderate right and mild left neural foraminal narrowing. At C6-7 the neur al foramina are moderately narrowed. At C7-T1 the neural foramina are widely patent. - Order placed for Cervical flexion/extension xray to check for possible cervical instabil ity. There is some concern of instability with the amount of anterior subluxation at the C3 -4 level. - Order placed for CT cervical spine. Follow Up: to be done with Dr. Mcdonough to get his recommendations after cervical imaging is completed. We discussed my clinical findings, radiographic studies, and treatment options, including t he risks and benefits in detail. I answered his/her questions. We reviewed treatment option s including, but not limited to, no treatment, continued medical treatment/conservative cande ures and surgical options. Thank you for allowing us to see Helder Holguin. Please call me at [phone] with a ny questions or concerns. Sincerely, Marco Dinero, [facility] Neurosurgery [facility] Note: I spent approximately 45 minutes in [id number] time of which greater than 50% was involved in counseling/coordination of care. Portions of this chart may have been created with voice recognition software. Occasional wr suresh-word or "sound-alike" substitutions may have occurred, even after review, due to the inh erent limitations of voice recognition software. Please read the chart carefully and recogni ze, using context, where these substitutions have occurred. Personal communication is reques saravanan for any clarifications. CC: MECHE VILLARREAL in this encounter Plan of Treatment +--------+---------+ + + + | Date | Type | Specialty | Care Team | Description | +--------+---------+ + + + | 11/05/ | Office | Neurosurgery | Cuong Mcdonough DO | | | 2019 | Visit | | [address] | | | | | | [place] | | | | | | [address] | | | | | | | | +--------+---------+ + + + + +--------+ + + | Name | Priori | Associated Diagnoses | Order Schedule | | | ty | | | + +--------+ + + | CT cervical spine wo contrast | Routin | Spondylolisthesis | Expected: | | | e | of cervical region | 10/14/2018, Expires: | | | | Degeneration of | 10/15/2019 | | | | intervertebral disc | | | | | of cervical region | | | | | Bulging of cervical | | | | | intervertebral disc | | | | | Cervicalgia | | + +--------+ + + as of this encounter Results X-ray cervical spine limited 2-3 view (10/14/2018 2:39 PM) + + + | Impressions | Performed At | + + + | 1. 5 mm of anterolisthesis of C3 on C4, similar to the prior exam. | [facility] | | 2. Moderate to severe multilevel degenerative changes. Signed by: | RADIOLOGY | | Spencer Anglin Date/Time: 10/14/2018 5:28 PM | | + + + + + + | Narrative | Performed At | + + + | CERVICAL SPINE TWO OR THREE VIEWS CLINICAL INFORMATION: Cough and | [facility] | | neck pain. COMPARISON: Radiographs from 08/31/2018 FINDINGS: | RADIOLOGY | | Cervical vertebral bodies maintain appropriate height. There is | | | straightening and slight reversal of the normal cervical | | | lordosis. 5 mm of anterior subluxation of C3 on C4, stable to the | | | comparison exam. Evidence for multilevel degenerative disc disease | | | most pronounced at C3-C4, C4-C5, and C5-C6 with near complete loss of | | | the intervertebral disc space and anterior osteophyte | | | formation. Uncovertebral and facet arthropathy demonstrated at | | | multiple levels. No significant prevertebral soft tissue swelling. | | + + + + + | Procedure Note | + + | Chava Schuster Results In - 10/14/2018 5:31 PM PDT CERVICAL SPINE TWO OR THREE VIEWS | | CLINICAL INFORMATION: | | Cough and neck pain. | | COMPARISON: | | Radiographs from 08/31/2018 | | FINDINGS: | | Cervical vertebral bodies maintain appropriate height. There is | | straightening and slight reversal of the normal cervical lordosis. 5 | | mm of anterior subluxation of C3 on C4, stable to the comparison exam. | | Evidence for multilevel degenerative disc disease most pronounced at | | C3-C4, C4-C5, and C5-C6 with near complete loss of the intervertebral | | disc space and anterior osteophyte formation. Uncovertebral and facet | | arthropathy demonstrated at multiple levels. No significant | | prevertebral soft tissue swelling. | | IMPRESSION: | | 1. 5 mm of anterolisthesis of C3 on C4, similar to the prior exam. | | 2. Moderate to severe multilevel degenerative changes. | | Signed by: Spencer Anglin | | Sign Date/Time: 10/14/2018 5:28 PM | + + + + + + + | Performing | Address | City/State/Zipcode | Phone Number | | Organization | | | | + + + + + | [facility] | [address] | [place] [address] | | + + + + + in this encounter Visit Diagnoses + + | Diagnosis | + + | Spondylolisthesis of cervical region - Primary | + + | Acquired spondylolisthesis | + + | Degeneration of intervertebral disc of cervical region | + + | Bulging of cervical intervertebral disc | + + | Cervicalgia | + +
--- OUTSIDE RECORDS SUMMARY | ~2018-10-31 | XMS | Encounter Summary ---
Demographics + + + | Address | [address] | | | [place] [address] | + + + | Home Phone | | + + + | Preferred Language | Unknown | + + + | Marital Status | | + + + | Zoroastrian Affiliation | Unknown | + + + | Race | Unknown | + + + | Ethnic Group | Unknown | + + + Author + + + | Author | [facility] | + + + | Organization | [facility] | + + + | Address [...] Team Providers + +------+ + | Care Vinegar Maker Name | Role | Phone | + +------+ + | Tucker Townsend MD | PCP | | + +------+ + Encounter Details +--------+ + + + + | Date | Type | Department | Care Team | Description | +--------+ + + + + | 10/27/ | Orders Only | [facility] | Leigh Ann Coyne, | | | 2019 | | Neuroscience [place] | POLISHER BRASS | | | | | [address] | | | | | | [place] | | | | | | [address] | | | | | | [phone] | | | +--------+ + + + [...] + + + as of this encounter Plan of Treatment +--------+---------+ + + + | Date | Type | Specialty | Care Team | Description | +--------+---------+ + + + | 11/05/ | Office | Neurosurgery | Cuong Mcdonough DO | | | 2019 | Visit | | [address] | | | | | | [place] | | | | | | [id number] | | | | | | | | +--------+---------+ + + + as of this encounter Visit Diagnoses Not on filein this encounter"
--- OUTSIDE RECORDS SUMMARY | ~2018-10-31 | XMS | Encounter Summary ---
Demographics + + + | Address | [address] | | | [place] [address] | + + + | Home Phone | | + + + | Preferred Language | Unknown | + + + | Marital Status | | + + + | Hindu Affiliation | Unknown | + + + | Race | Unknown | + + + | Ethnic Group | Unknown | + + + Author + + + | Author | [facility] | + + + | Organization | [facility] | + + + | Address [...] Team Providers + +------+ + | Care Professor Of Public Administration Name | Role | Phone | + [...] | Radiology | Diagnoses | Bar | [facility] | | | | | | DALY Woodard | [address] | | | | | Spondylolist | [address] | | | | | hesis of | Jackson Geller | [place] | | | | | cervical | [place] | [address] Phone: | | | | | region | [place], [place] | [phone] | | | | | Degeneration | [address] | | | | | | of | Phone: | | | | | | intervertebr | [phone] | | | | | | al disc of | Fax: | | | | | | cervical | [phone] | | | | | | region [...] | | | | | | [place] [address] | [address] Phone: | | | | | | Phone: | [phone] | | | | | | [phone] | Fax: | | | | | | Fax: | [phone] | | | | | | [phone] | | + +--------+ + + + + Encounter Details +--------+---------+ + + + | Date | Type | Department | Care Team | Description | +--------+---------+ + + + | 10/14/ | Office | [facility] | Marco Dinero, | Spondylolisthesis of | | 2019 | Visit | [facility] | SOFTWARE VALIDATION TECHNICIAN [address] | cervical region | | | | [address] | [address] Wilson, | (Primary Dx); | | | | [place] | [place] [address] | Degeneration of | | | | [address] | [phone] | intervertebral disc | | | | [phone] | | of cervical region; | | [...] see Helder Holguin. Please call me at [phone] with a [place] questions or concerns. Sincerely, Marco Dinero, [facility] Neurosurgery [facility] Note: I spent approximately 45 minutes in [id number] time of which greater than 50% was [...] [place] | | | | | | [address] | | | | | | | [...] [facility] | [address] | [place] [address] | | + + + + + [...]
--- OUTSIDE RECORDS SUMMARY | ~2018-10-31 | XMS | Encounter Summary ---
Demographics + + + | Address | [address] | | | [place] [address] | + + + | Home Phone | | + + + | Preferred Language | Unknown | + + + | Marital Status | | + + + | Religion Affiliation | Unknown | + + + | Race | Unknown | + + + | Ethnic Group | Unknown | + + + Author + + + | Author | [facility] | + + + | Organization | [facility] | + + + | Address [...] Team Providers + +------+ + | Care Controls Technician Name | Role | Phone | + +------+ + | Tucker Townsend MD | PCP | | + +------+ + Encounter Details +--------+ + + + + | Date | Type | Department | Care Team | Description | +--------+ + + + + | 09/10/ | Documentati | [facility] | Marco Dinero, | | | 2019 | on Only | [facility] | WAITER/WAITRESS BUFFET [address] | | | | | [address] | [address] Tian, | | | | | [place] | [place] [address] | | | | | [address] | [phone] | | | | | [phone] | | | +--------+ + + + [...] + + + as of this encounter Progress Notes Precious Macias - 09/10/2018 3:05 PM PSTReferralin this encounter Plan of Treatment +--------+---------+ + + + | Date | Type | Specialty | Care Team | Description | +--------+---------+ + + + | 11/05/ | Office | Neurosurgery | Cuong Mcdonough DO | | | 2019 | Visit | | [address] | | | | | | [place] | | | | | | [id number] | | | | | | | | +--------+---------+ + + + as of this encounter Visit Diagnoses Not on filein this encounter"
--- OUTSIDE RECORDS SUMMARY | ~2018-10-31 | XMS | Encounter Summary ---
Demographics + + + | Address | [address] | | | [place] [address] | + + + | Home Phone | | + + + | Preferred Language | Unknown | + + + | Marital Status | | + + + | Muslim Affiliation | Unknown | + + + | Race | Unknown | + + + | Ethnic Group | Unknown | + + + Author + + + | Author | [facility] | + + + | Organization | [facility] | + + + | Address [...] Team Providers + +------+ + | Care Rivet Hole Machine Operator Name | Role | Phone | + +------+ + | Tucker Townsend MD | PCP | | + +------+ + Encounter Details +--------+ + + + + | Date | Type | Department | Care Team | Description | +--------+ + + + + | 10/14/ | Hospital | [facility] | Marco Dinero, | Spondylolisthesis of | | 2019 | Encounter | [facility] | AGRICULTURE RESEARCH DIRECTOR [address] | cervical region; | | | | Xray [address] | [address] Wilson, | Degeneration of | | | | [address] | [place] [address] | intervertebral disc | | | | [place] [address] | [phone] | of cervical region; | | | | [phone] | | Bulging of cervical | | [...] + + + as of this encounter Medications at Time of Discharge + + +-------+---------+ + + | Medication | Sig. | Disp. | Refills | Start | End Date | | | | | | Date | | + + +-------+---------+ + + | acetaminophen | Take 1 tablet by | | | 05/22/20 | | | (MAPAP) 500 MG | mouth. | | | 09 | | | tablet | | | | | | + + +-------+---------+ + + | amitriptyline | Take 2 tablets by | | | 11/15/19 | | | (ELAVIL) 10 MG | mouth. | | | 10 | | | tablet | | | | | | + + +-------+---------+ + + | digoxin (LANOXIN) | | | 11 | 10/14/19 | | | 0.25 MG tablet | | | | 19 | | + + +-------+---------+ + + | gabapentin | | | 5 | 10/13/19 | | | (NEURONTIN) 300 MG | | | | 19 | | | capsule | | | | | | + + +-------+---------+ + + | Glucosamine | Take 1 capsule by | | | 05/22/20 | | | Sulfate 500 MG CAPS | mouth. | | | 09 | | + + +-------+---------+ + + | metoclopramide | Take 1 tablet by | | | 01/24/20 | | | (REGLAN) 10 MG | mouth. | | | 10 | | | tablet | | | | | | + + +-------+---------+ + + | rOPINIRole | | | 11 | 10/14/19 | | | (REQUIP) 0.25 MG | | | | 19 | | | tablet | | | | | | + + +-------+---------+ + + | sucralfate | | | 99 | 10/14/19 | | | (CARAFATE) 1 g | | | | 19 | | | tablet | | | | | | + + +-------+---------+ + + | warfarin | | | 99 | 10/14/19 | | | (COUMADIN) 1 MG | | | | 19 | | | tablet | | | | | | + + +-------+---------+ + + as of this encounter Plan of Treatment +--------+---------+ + + + | Date | Type | Specialty | Care Team | Description | +--------+---------+ + + + | 11/05/ | Office | Neurosurgery | Cuong Mcdonough DO | | | 2019 | Visit | | [address] | | | | | | [place] | | | | | | [address] | | | | | | | | +--------+---------+ + + + as of this encounter Procedures + +--------+ + + + | Procedure Name | Priori | Date/Time | Associated Diagnosis | Comments | | | ty | | | | + +--------+ + + + | XR CERVICAL SPINE | Routin | 10/14/2018 | Spondylolisthesis | Results for this | | LIMITED 2-3 VIEW | e | 2:39 PM | of cervical region | procedure are in the | | | | PDT | Degeneration of | results section. | | | | | intervertebral disc | | | | | | of cervical region | | | | | | Bulging of cervical | | | | | | intervertebral disc | | | | | | Cervicalgia | | + +--------+ + + + in this encounter Results X-ray cervical spine limited 2-3 view (10/14/2018 2:39 PM) + + + | Impressions | Performed At | + + + | 1. 5 mm of anterolisthesis of C3 on C4, similar to the prior exam. | [facility] | | 2. Moderate to severe multilevel degenerative changes. Signed by: | RADIOLOGY | | Spencer Anglin Sign Date/Time: 10/14/2018 [...] Note | + + | Landen, Rad Results In - 10/14/2018 5:31 PM PDT [...] | + + + + + | [facility] | [address] | [place] [address] | | + + + + + in this encounter Visit Diagnoses + + | Diagnosis | + + | Spondylolisthesis of cervical region | + + | Acquired spondylolisthesis | + + | Degeneration of intervertebral disc of cervical region | + + | Bulging of cervical intervertebral disc | + + | Cervicalgia | + + Admitting Diagnoses + + | Diagnosis | + + | Cervicalgia | + + | Spondylolisthesis of cervical region | + + | Acquired spondylolisthesis | + + | Degeneration of intervertebral disc of cervical region | + + | Bulging of cervical intervertebral disc | + +"
--- OUTSIDE RECORDS SUMMARY | ~2018-10-31 | XMS | Encounter Summary ---
Demographics + + + | Address | [address] | | | [place] [address] | + + + | Home Phone | | + + + | Preferred Language | Unknown | + + + | Marital Status | | + + + | Roman Catholic Affiliation | Unknown | + + + | Race | Unknown | + + + | Ethnic Group | Unknown | + + + Author + + + | Author | [facility] | + + + | Organization | [facility] | + + + | Address [...] Team Providers + +------+ + | Care Metal Patternmaker Apprentice Name | Role | Phone | + +------+ + | Tucker Townsend MD | PCP | | + +------+ + Encounter Details +--------+ + + + + | Date | Type | Department | Care Team | Description | +--------+ + + + + | 10/27/ | Orders Only | [facility] | Leigh Ann Coyne, | | | 2019 | | Neuroscience [place] | BUSINESS PROJECT MANAGER | | | | | [address] | | | | | | [place] | | | | | | [address] | | | | | | [phone] | | | +--------+ + + + [...] [place] | | | | | | [id number] | | | | | | | | +--------+---------+ + + + as of this encounter Visit Diagnoses Not on filein this encounter"
--- OUTSIDE RECORDS SUMMARY | ~2018-10-31 | XMS | Encounter Summary ---
Demographics + + + | Address | [address] | | | [place] [address] | + + + | Home Phone | | + + + | Preferred Language | Unknown | + + + | Marital Status | | + + + | Quaker Affiliation | Unknown | + + + | Race | Unknown | + + + | Ethnic Group | Unknown | + + + Author + + + | Author | [facility] | + + + | Organization | [facility] | + + + | Address [...] Team Providers + +------+ + | Care Terrazzo Grinder Name | Role | Phone | + +------+ + | Tucker Townsend MD | PCP | | + +------+ + Reason for Visit + + + | Reason | Comments | + + + | Question | imaging | + + + Encounter Details +--------+ + + + + | Date | Type | Department | Care Team | Description | +--------+ + + + + | 10/15/ | Telephone | [facility] | Cuong Mcdonough DO | Question (imaging ) | | 2019 | | [facility] | [address] | | | | | [address] | [place], [place] | | | | | [place], [place] | [address] | | | | | [address] | | | | | | [phone] | | | +--------+ + + + [...] | | | | | | [place] | | | | | | [address] | | | | | | | | +--------+---------+ + + + as of this encounter Visit Diagnoses Not on filein this encounter"
--- OUTSIDE RECORDS SUMMARY | ~2018-10-31 | XMS | Encounter Summary ---
Demographics + + + | Address | [address] | | | [place] [address] | + + + | Home Phone | | + + + | Preferred Language | Unknown | + + + | Marital Status | | + + + | Restoration Affiliation | Unknown | + + + | Race | Unknown | + + + | Ethnic Group | Unknown | + + + Author + + + | Author | [facility] | + + + | Organization | [facility] | + + + | Address [...] Team Providers + +------+ + | Care Home Care Manager Name | Role | Phone | [...] + + | 10/15/ | Telephone | [facility] | Cuong Mcdonough DO | Question (imaging ) | | 2019 | | [facility] | [address] | | | | | [address] | [place], [place] | | | | | [place], [place] | [address] | | | | | [address] | | | | | | [phone] | | | +--------+ + + + [...]
--- OUTSIDE RECORDS SUMMARY | ~2018-10-31 | XMS | Clinical Summary ---
Demographics + + + | Address | [address] | | | [place] [address] | + + + | Home Phone | | + + + | Preferred Language | Unknown | + + + | Marital Status | | + + + | Mu-Ism Affiliation | Unknown | + + + | Race | Unknown | + + + | Ethnic Group | Unknown | + + + Author + + + | Author | [facility] | + + + | Organization | [facility] | + + + | Address [...] Team Providers + +------+ + | Care Roll Icer Machine Name | Role | Phone | + [...] Take 2 tablets by | | | 10/26 | | Activ | | (ELAVIL) 10 MG | mouth. | | | 1/20 | [...] (NEURONTIN) 300 MG | | | | 04/15 | | e | | capsule | | | | 19 | | | + + +-------+---------+------+------+-------+ | SILVA CONTOUR TEST | | | 1 | 03/2 | | Activ | | test strip | | | | 12/13 | | e | | | | [...] Cervicalgia | 10/14/2018 | + + + Encounters +--------+ + + + + | Date | Type | Specialty | Care Team | Description | +--------+ + + + + | 10/27/ | Orders Only | | Leigh Ann Coyne, | | | 2018 | | | FRAME FIXER | | +--------+ + + + + | 10/15/ | Telephone | | Cuong Mcdonough DO | Question (imaging ) | | 2018 | | | | | +--------+ + + + + | 10/14/ | Hospital | | Marco Dinero, | Spondylolisthesis of | | 2019 | Encounter | | COMPLEX CASE MANAGER | cervical region; | | | | | | Degeneration of | | | | | | intervertebral disc | | | | | | of cervical region; | | | | | | Bulging of cervical | | | | | | intervertebral disc; | | | | | | Cervicalgia | +--------+ + + + + | 10/14/ | Office | | Marco Dinero, | Spondylolisthesis of | | 2018 | Visit | | COMPLEX CASE MANAGER | cervical region | | | | | | (Primary Dx); | | | | | | Degeneration of | | | | | | intervertebral disc | | | | | | of cervical region; | | | | | | Bulging of cervical | | | | | | intervertebral disc; | | | | | | Cervicalgia | +--------+ + + + + | 09/10/ | Documentati | | Marco Dinero, | | | 2019 | on Only | | COMPLEX CASE MANAGER | | +--------+ + + + + from Last 3 Months Immunizations + + + + | Name [...] + + | 11/05/ | Office | | Cuong Mcdonough DO | | | 2019 | Visit | | [address] | | | | | | [place] | | | | | | [address] | | | | | | | [...] | | 05/24/2012, 05/07/2010, | | | (Season Ended) | 9 | 05/10/2009, Additional history | | | | | exists | | + + + + + Procedures + +--------+ + + + | [...] | | + +--------+ + + + from Last 3 Months Results X-ray cervical spine limited 2-3 view (10/14/2018 2:39 PM) + + + | Impressions | Performed At | + + + | 1. 5 mm of anterolisthesis of C3 on C4, similar to the prior exam. | [facility] | | 2. Moderate to severe multilevel [...] | + + + + + | [facility] | [address] | [place] [address] | | + + + + + from Last 3 Months Insurance + +--------+ +------+-------+ + | Payer | Benefi | Subscriber | Type | Phone | Address | | | t Plan | ID | | | | | | / | | | | | | | Group | | | | | + +--------+ +------+-------+ + | MEDICARE | MEDICA | [id number] | | | [address] | | | RE | | | | [place] [phone] | | | IP-OP | | | | | + +--------+ +------+-------+ + + +--------+ +--------+ + + | Guarantor Name | Accoun | Relation to | Date | Phone | Billing Address | | | t Type | Patient | of | | | | | | | | | | + +--------+ +--------+ + + | FRED BAJWA | Person | Self [birth year] Home: | [address] | | | al/Fam | | 3 | [phone] | [address] [place], | | | [place]iko | | | [address] | [place] [address] | + +--------+ +--------+ + +
--- OUTSIDE RECORDS SUMMARY | ~2018-10-31 | XMS | Clinical Summary ---
Demographics + + + | Address | [address] | | | [place] [address] | + + + | Home Phone | | + + + | Preferred Language | Unknown | + + + | Marital Status | | + + + | Confucianist Affiliation | Unknown | + + + | Race | Unknown | + + + | Ethnic Group | Unknown | + + + Author + + + | Author | [facility] | + + + | Organization | [facility] | + + + | Address [...] Team Providers + +------+ + | Care Bag Presser Name | Role | Phone | + [...] | | | 2018 | | | ELECTRICIANS TOP HELPER | | +--------+ + + + + | 10/15/ | Telephone | | Cuong Mcdonough DO | Question (imaging ) | | 2018 | | | | | +--------+ + + + + | 10/14/ | Hospital | | Marco Dinero, | Spondylolisthesis of | | 2019 | Encounter | | CORRECTIONAL THERAPY DIRECTOR | cervical region; | | | | [...] | | 2018 | Visit | | CORRECTIONAL THERAPY DIRECTOR | cervical region | | | | [...] | 2019 | on Only | | CORRECTIONAL THERAPY DIRECTOR | | +--------+ + + + + [...] [place] | | | | | | [address] | | | | | | | [...] [facility] | [address] | [place] [address] | | + + + + + [...] +------+-------+ + | MEDICARE | MEDICA | [id number] | | | [address] | | | RE | | | | [place] [phone] | | | IP-OP | | | [...] [place]iko | | | [address] | [place] [address] | + +--------+ +--------+ + +
--- OUTSIDE RECORDS SUMMARY | ~2018-10-31 | XMS | Encounter Summary ---
Demographics + + + | Address | [address] | | | [place] [address] | + + + | Home Phone | | + + + | Preferred Language | Unknown | + + + | Marital Status | | + + + | Caodaism Affiliation | Unknown | + + + | Race | Unknown | + + + | Ethnic Group | Unknown | + + + Author + + + | Author | [facility] | + + + | Organization | [facility] | + + + | Address [...] Team Providers + +------+ + | Care Channel Marketing Coordinator Name | Role | Phone | + +------+ + | Tucker Townsend MD | PCP | | + +------+ + Encounter Details +--------+ + + + + | Date | Type | Department | Care Team | Description | +--------+ + + + + | 10/14/ | Hospital | [facility] | Marco Dinero, | Spondylolisthesis of | | 2019 | Encounter | [facility] | INTERACTIVE WEB DEVELOPER [address] | cervical region; | | | | Xray [address] | Dr Wilson, | Degeneration of | | | | [address] | [place] [address] | intervertebral disc | | | | [place] [address] | [phone] | of cervical region; | | | | [phone] | | Bulging of cervical | | [...] [place] | | | | | | [address] | | | | | | | [...] | + + + + + | [facility] | [address] | [place] [address] | | + + + + + [...]
--- OUTSIDE RECORDS SUMMARY | ~2018-10-31 | XMS | Encounter Summary ---
Demographics + + + | Address | [address] | | | [place] [address] | + + + | Home Phone | | + + + | Preferred Language | Unknown | + + + | Marital Status | | + + + | Mu-Ism Affiliation | Unknown | + + + | Race | Unknown | + + + | Ethnic Group | Unknown | + + + Author + + + | Author | [facility] | + + + | Organization | [facility] | + + + | Address [...] Team Providers + +------+ + | Care Salvage Winder Name | Role | Phone | + [...] | on Only | [facility] | RN ORTHOPEDIC [address] | | | | | [address] | [address], | | | | | [place] | [place] [address] | | | | | [address] | [phone] | | | | | [phone] | | | +--------+ + + + [...] [place] | | | | | | [id number] | | | | | | | | +--------+---------+ + + + as of this encounter Visit Diagnoses Not on filein this encounter"
--- OUTSIDE RECORDS SUMMARY | 2018-10-31 10:30 | XMS ---
PreManage Notification: FRED BAJWA Security Shingle Bolt Cutter Events No recent Security Events currently on file CRITERIA MET - [facility] Justina Cid Printing Press Machinist/Special Education Itinerant Teacher 12/25/2017-Current PHONE: [phone] Justina Cid Printing Press Machinist/Special Education Itinerant Teacher 12/25/2017-Current PHONE: [phone] Justina Cid Primary Care 12/25/2017-Current PHONE: [phone] DR MECHE VILLARREAL Primary Care 10/25/2016-Current PHONE: [phone] Meet has no Care Guidelines for this patient. [place] VISIT COUNT (12 MO.) 2 [facility] TOTAL 2 NOTE: Visits indicate total known visits. 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
[2018-10-31] MEDS ORDERED: PANTOPRAZOLE SO40 MG PO (10:35)
[2018-10-31] MEDS ORDERED: PREDNISONE20 MG PO (12:25)
[2018-10-31] MEDS ORDERED: LASIX20 MG PO (12:25)
[2018-10-31] MEDS ORDERED: IPRAT-ALBUT 0.5-3 ML INH (12:25)
[2018-10-31] MEDS ORDERED: K-TAB ER20 MEQ PO (12:25)
[2018-10-31] MEDS ORDERED: DOXYCYCLINE HY100 MG PO (12:25)
== END 2018-10-31 14:16 | disposition short-term general hospital (02) ==
LOC: ED 10:27
DX: J44.0 Chronic obstructive pulmonary disease with (acute) lower respiratory infection (principal); J18.1 Lobar pneumonia, unspecified organism; I11.0 Hypertensive heart disease with heart failure; I50.9 Heart failure, unspecified; K21.9 Gastro-esophageal reflux disease without esophagitis; I48.91 Unspecified atrial fibrillation; Z88.5 Allergy status to narcotic agent; Z88.8 Allergy status to other drugs, medicaments and biological substances; Z79.899 Other long term (current) drug therapy; Z79.01 Long term (current) use of anticoagulants
CPT/HCPCS: 71045; 80053; 80162; 83880; 84484; 85025; 85610; 94640; 96374; 96375; 99285-25; J2930

== ENCOUNTER 2019-05-29 18:25 | Emergency (ER) | payer MEDICARE, OTHER ==
[~2019-05-29] VITALS: Ht 167.6 cm; Wt 114.1 kg
--- OUTSIDE RECORDS SUMMARY | ~2019-05-29 | XMS | Clinical Summary ---
Demographics + + + | Address | [address] | | | [place] [address] | + + + | Home Phone | | + + + | Preferred Language | Unknown | + + + | Marital Status | | + + + | Christianity Affiliation | Unknown | + + + | Race | Unknown | + + + | Ethnic Group | Unknown | + + + Author + + + | Author | [facility] | | | and [place] | + + + | Organization | [facility] | | | [...] Team Providers + +------+ + | Care Wine Master Name | Role | Phone | + [...] | + + + + | INFLUENZA, [id number], | 07/31/2009 | | | UNSPECIFIED | [...] recent travel history available. | + + Last Filed Vital Signs + + + + | Vital Sign | Reading | Time Taken | + + + + | Blood Pressure | 155/87 | 10/14/20181309 PDT | + + + + | Pulse | 81 | 10/14/20181309 PDT | + + + + | [...] Weight | 117.9 kg (260 lb) | 10/14/20181309 PDT | + + + + | Height | 167.6 cm (5' 6") | 10/14/20181309 PDT | + + + + | Body Mass Index | 41.97 | 10/14/20181309 PDT | + + + + Plan of Treatment +--------+---------+ + + + | Date | Type | Specialty | Care Team | Description | +--------+---------+ + + + | 06/27/ | Office | Orthopedic Surgery | Finn Gama, | | | 2018 | Visit | | [address] | | | | | | [place] [address] | | | | | | [phone] | | | | | | | | +--------+---------+ + + + + + + + + | Health [...] + | Vaccine: Influenza | | 05/24/2012, 05/15/2011, | | | (#1) | 9 | 05/07/2010, Additional history | | | | | [...] +--------+ +---------+--------+ | MEDICARE | MEDICA | [id number] | 09/24/18 | [phone] | | Medica | | | RE | | 79-Pre | 5 | | re | | | PART A | | sent | | | | | | AND B | | | | | | + +--------+ +--------+ +---------+--------+ | [employer] | [employer] | [id number] | | [phone] | | Medica | [...] | | | 0 (Home) | [place] [address] | + +--------+ +--------+ + + Advance Directives Patient has advance care planning documents on file. For more information, please contact:[facility] [place] [address]
--- OUTSIDE RECORDS SUMMARY | ~2019-05-29 | XMS | Clinical Summary ---
Demographics + + + | Address | [address] | | | [place] [address] | + + + | Home Phone | | + + + | Preferred Language | Unknown | + + + | Marital Status | | + + + | Scientology Affiliation | Unknown | + + + | Race | Unknown | + + + | Ethnic Group | Unknown | + + + Author + + + | Author | [facility] (Historical as of | | | 03-12-19) | + + + | Organization | [facility] (Historical as of | | | 03-12-19) | + + + | Address | Unknown | + + + | Phone | Unavailable | + + + Support + + +---------+ + | Name | Relationship | Address | Phone | + + +---------+ + | Kirstie Gatse | ECON | Unknown | | + + +---------+ + | Leora Poole | ECON | Unknown | | + + +---------+ + Care Team Providers + +------+ + | Care Machine Compositor Name | Role | Phone | + [...] +------+-------+ + | MEDICARE | MEDICA | [id number] | | | [address] | | | RE | | | | [place] [phone] | | | IP-OP | | | [...] niko | | | [address] | [place] [address] | + +--------+ +--------+ + +
--- OUTSIDE RECORDS SUMMARY | ~2019-05-29 | XMS | Clinical Summary ---
Demographics + + + | Address | [address] | | | [place] [address] | + + + | Home Phone | | + + + | Preferred Language | Unknown | + + + | Marital Status | | + + + | Faith Affiliation | Unknown | + + + | Race | Unknown | + + + | Ethnic Group | Unknown | + + + Author + + + | Author | [facility] (Historical as of | | | 03-12-19) | + + + | Organization | [facility] (Historical as of | | | 03-12-19) [...] Team Providers + +------+ + | Care Engraved Roller Inspector Name | Role | Phone | + [...] +------+-------+ + | MEDICARE | MEDICA | [id number] | | | [address] | | | RE | | | | [place] [phone] | | | IP-OP | | | [...] niko | | | [address] | [place] [address] | + +--------+ +--------+ + +
--- OUTSIDE RECORDS SUMMARY | ~2019-05-29 | XMS | Clinical Summary ---
Demographics + + + | Address | [address] | | | [place] [address] | + + + | Home Phone | | + + + | Preferred Language | Unknown | + + + | Marital Status | | + + + | Baptist Affiliation | Unknown | + + + | Race | Unknown | + + + | Ethnic Group | Unknown | + + + Author + + + | Author | [facility] | | | and [place] | + + + | Organization | [facility] | | | and [...] Team Providers + +------+ + | Care Acid Treater Name | Role | Phone | + [...] | + + + + | INFLUENZA, [id number], | 07/31/2009 | | | UNSPECIFIED | [...] | | 2018 | Visit | | [address] | | | | | | [place] [address] | | | | | | [phone] | | | | | | | [...] +--------+ +---------+--------+ | MEDICARE | MEDICA | [id number] | 09/24/18 | [phone] | | Medica | | | RE | | 79-Pre | 5 | | re | | | PART A | | sent | | | | | | AND B | | | | | | + +--------+ +--------+ +---------+--------+ | [employer] | MODA | [id number] | | [phone] | | Medica | [...] | | | 0 (Home) | [place] [address] | + +--------+ +--------+ + + Advance Directives Patient has advance care planning documents on file. For more information, please contact:[facility] and [facility] [place] [address]
[~2019-05-29 18:25] MED LIST changes: +AMOX-CLAV 250-1 EACH PO; +BASAGLAR K100 UNIT/1 SUB-Q; +CEPHALEXIN500 MG PO; +DOXYCYCLINE HY100 MG PO; +FUROSEMIDE20 MG PO; +GABAPENTIN300 MG PO; +IPRAT-ALBUT 0.5-3 ML INH; +JANUVIA100 MG PO; +K-TAB ER20 MEQ PO; +LASIX20 MG PO; +MAXZIDE 37.5 MG-1 EA PO; +METOPROLOL SUCC50 MG PO; +PREDNISONE20 MG PO; +ROPINIROLE HC0.25 MG PO
[2019-05-29] MEDS ORDERED: K-TAB ER20 MEQ PO (20:21)
[2019-05-29] MEDS ORDERED: MAGNESIUM400 MG PO (20:21)
--- NOTE | 2019-05-30 17:38 | EKG ---
[facility] [address] [place] [address] Signed Atrial fibrillation with rapid ventricular response with premature ventricular or aberrantly conducted complexes Left axis deviation Low voltage QRS Possible Lateral infarct , age undetermined Inferior infarct (cited on or before 18-FEB-2019) Abnormal ECG When compared with ECG of 21-MAR-2019 20:04, No significant change was found Confirmed by AVRIL VOGT DO ([id number]) on 05/30/2019 5:38:45 PM Electronically Signed By: AVRIL VOGT DO 05/30/19 1738 PATIENT NAME: FRED BAJWA Electrocardiogram DATE OF : 54 PHYSICIAN: AVRIL VOGT DO REPORT #: [id number] REPORT IS CONFIDENTIAL AND NOT TO BE RELEASED WITHOUT AUTHORIZATION
== END 2019-05-29 20:45 | disposition home or self-care (01) ==
LOC: ED 18:25
DX: E11.65 Type 2 diabetes mellitus with hyperglycemia (principal); I48.91 Unspecified atrial fibrillation; E87.6 Hypokalemia; E83.42 Hypomagnesemia; I10 Essential (primary) hypertension; K21.9 Gastro-esophageal reflux disease without esophagitis; Z88.5 Allergy status to narcotic agent; Z88.8 Allergy status to other drugs, medicaments and biological substances; Z79.899 Other long term (current) drug therapy; Z79.01 Long term (current) use of anticoagulants; Z79.4 Long term (current) use of insulin
CPT/HCPCS: 80053; 80162; 83735; 84484; 85025; 85610; 93005; 93010; 99285-25

== ENCOUNTER 2019-06-25 20:33 | Emergency (ER) | payer MEDICARE, OTHER ==
[~2019-06-25] VITALS: Ht 167.6 cm; Wt 114.1 kg
--- OUTSIDE RECORDS SUMMARY | ~2019-06-25 | XMS | Clinical Summary ---
Demographics + + + | Address | [address] | | | [place] [address] | + + + | Home Phone | | + + + | Preferred Language | Unknown | + + + | Marital Status | | + + + | Jewish Affiliation | Unknown | + + + | Race | Unknown | + + + | Ethnic Group | Unknown | + + + Author + + + | Author | [facility] (Historical as of | | | 03-12-19) | + + + | Organization | [facility] (Historical as of | | | 03-12-19) | + + + | Address | [...] Team Providers + +------+ + | Care Dean Of Men Name | Role | Phone | + +------+ + | Tucker Townsend MD | PP | | + +------+ + Allergies + + + + + + | Active Allergy | Reactions | Severity | Noted | Comments | | | | | Date | | + + + + + + | Amlodipine | Other (See Comments) | Medium | 07/20/20 | Weakness | | | | | 06 | | + + + + + + | Codeine | Other (See Comments) | Medium | 07/20/20 | Hallucinations | | | | | 06 | | + + + + + + Current Medications + + +-------+---------+------+------+-------+ | Prescription | Sig. | Disp. | Refills | Star | End | Statu | | | | | | t | Date | s | | | | | | Date | | | + + +-------+---------+------+------+-------+ | acetaminophen | Take 1 tablet by | | | 04/27 | | Activ | | (MAPAP) 500 MG | mouth. | | | 02/12 | | e | | tablet | | | | 09 | | | + + +-------+---------+------+------+-------+ | amitriptyline | Take 2 tablets by | | | 04/2 | | Activ | | (ELAVIL) 10 MG | mouth. | | | 20 | | e | | tablet | | | | 10 | | | + + +-------+---------+------+------+-------+ | Glucosamine | Take 1 capsule by | | | 10/2 | | Activ | | Sulfate 500 MG CAPS | mouth. | | | 20 | | e | | | | | | 09 | | | + + +-------+---------+------+------+-------+ | metoclopramide | Take 1 tablet by | | | 06/3 | | Activ | | (REGLAN) 10 MG | mouth. | | | 0/20 | | e | | tablet | | | | 10 | | | + + +-------+---------+------+------+-------+ | warfarin | | | 99 | 03/2 | | Activ | | (COUMADIN) 1 MG | | | | 0/20 | | e | | tablet | | | | 19 | | | + + +-------+---------+------+------+-------+ | | | | 3 | 03/2 | | Activ | | amoxicillin-clavulan | | | | 2/20 | | e | | ate (AUGMENTIN) | | | | 19 | | | | 250-125 MG per | | | | | | | | tablet | | | | | | | + + +-------+---------+------+------+-------+ | digoxin (LANOXIN) | | | 11 | 03/2 | | Activ | | 0.25 MG tablet | | | | 0/20 | | e | | | | | | 19 | | | + + +-------+---------+------+------+-------+ | gabapentin | | | 5 | 03/1 | | Activ | | (NEURONTIN) 300 MG | | | | 9/20 | | e | | capsule | | | | 19 | | | + + +-------+---------+------+------+-------+ | SILVA CONTOUR TEST | | | 1 | 03/2 | | Activ | | test strip | | | | 5/20 | | e | | | | | | 19 | | | + + +-------+---------+------+------+-------+ | rOPINIRole | | | 11 | 03/2 | | Activ | | (REQUIP) 0.25 MG | | | | 0/20 | | e | | tablet | | | | 19 | | | + + +-------+---------+------+------+-------+ | sucralfate | | | 99 | 03/2 | | Activ | | (CARAFATE) 1 g | | | | 0/20 | | e | | tablet | | | | 19 | | | + + +-------+---------+------+------+-------+ Active Problems + + + | Problem | Noted Date | + + + | Spondylolisthesis of cervical region | 10/14/2018 | + + + | Bulging of cervical intervertebral disc | 10/14/2018 | + + + | Cervicalgia | 10/14/2018 | + + + Immunizations + + + + | Name | Dates Previously Given | Next Due | + + + + | H1N1 Monovalent 2009 | 07/31/2009 | | + + + + | Influenza, Trivalent | 05/24/2012, 05/07/2010, 05/10/2009, | | | W/Preservative | 05/13/2006, 04/28/2005, 05/08/2004 | | + + + + | Pneumococcal | 12/28/2009 | | | Polysaccharide | | | | 23-valent | | | + + + + | Tdap | 12/13/2008 | | + + + + Social History + [...] on file | | + + + Last Filed Vital Signs + + + [...] PM PDT | + + + + Plan of Treatment + + + + + | Health Maintenance | Due Date | Last Done | Comments | + + + + + | Colon Cancer | | | | | Screening | 3 | | | | (Colonoscopy) | | | | + + + + + | Vaccine: Zoster (1 | | | | | of 2) | 3 | | | + + + + + | Vaccine: | | 12/28/2009 | | | Pneumococcal 65+ | 8 | | | | Low/Medium Risk (1 | | | | | of 2 - PCV13) | | | | + + + + + | Vaccine: | | 12/13/2008 | | | Dtap/Tdap/Td (2 - | 9 | | | | Td) | | | | + + + + + | Vaccine: Influenza | | 05/24/2012, 05/07/2010, | | | (#1) | 9 | 05/10/2009, Additional history | | | | | exists | | + + + + + Results Not on filefrom Last 3 Months Insurance + +--------+ +------+-------+ + | Payer | Benefi | Subscriber | Type | Phone | Address | | | t Plan | ID | | | | | | / | | | | | | | Group | | | | | + +--------+ +------+-------+ + | MEDICARE | MEDICA | [id number] | | | [address] | | | RE | | | | [place] [phone] | | | IP-OP | | | | | + +--------+ +------+-------+ + + +--------+ +--------+ + + | Guarantor Name | Accoun | Relation to | Date | Phone | Billing Address | | | t Type | Patient | of | | | | | | | | | | + +--------+ +--------+ + + | HELDER BAJWA | Person | Self [birth year] Home: | [address] | | | al/Fam | | 1951 | [phone] [address] [place], | | | [place] | | | [address] | [place] [address] | + +--------+ +--------+ + +
--- OUTSIDE RECORDS SUMMARY | ~2019-06-25 | XMS | Encounter Summary ---
Demographics + + + | Address | [address] | | | [place] [address] | + + + | Home Phone | | + + + | Preferred Language | Unknown | + + + | Marital Status | | + + + | Nondenominational Affiliation | Unknown | + + + | Race | Unknown | + + + | Ethnic Group | Unknown | + + + Author + + + | Author | [facility] | | | and [place] | + + + | Organization | [facility] | | | and [...] Team Providers + +------+ + | Care Copy Center Specialist Name | Role | Phone | + +------+ + | Tucker Townsend MD | PCP | | + +------+ + Encounter Details +--------+ + + + + | Date | Type | Department | Care Team | Description | +--------+ + + + + | 10/14/ | Orders Only | [facility] | Conversion | | | 2019 | | CONVERSION [address] | Transaction, | | | | | [address] | Provider Unknown | | | | | [place] | [phone] | | | | | [phone] | | | | | | [phone] | | | +--------+ + + + [...] on file | | + + + + + + + | Job Start Date | Occupation | Industry | + + + + | Not on file | Not on file | Not on file | + + + + + + + + | Travel History | Travel Start | Travel End | + + + + + + | No recent travel history available. | + + documented as of this encounter Plan of Treatment +--------+---------+ + + + | Date | Type | Specialty | Care Team | Description | +--------+---------+ + + + | 06/27/ | Office | Orthopedic Surgery | Finn Gama, | | | 2018 | Visit | | [address] | | | | | | [place] [address] | | | | | | [phone] | | | | | | | | +--------+---------+ + + + documented as of this encounter Visit Diagnoses Not on filedocumented in this encounter"
--- OUTSIDE RECORDS SUMMARY | ~2019-06-25 | XMS | Encounter Summary ---
Demographics + + + | Address | [address] | | | [place] [address] | + + + | Home Phone | | + + + | Preferred Language | Unknown | + + + | Marital Status | | + + + | Catholic Affiliation | Unknown | + + + | Race | Unknown | + + + | Ethnic Group | Unknown | + + + Author + + + | Author | [facility] [place] | | | and [place] | + + + | Organization | [facility] | | [...] Team Providers + +------+ + | Care Finishing Supervisor Name | Role | Phone | + +------+ + | Tucker Townsend MD | PCP | | + +------+ + Encounter Details +--------+ + + + + | Date | Type | Department | Care Team | Description | +--------+ + + + + | /03/ | Orders Only | [facility] | Conversion | | | 2019 | | CONVERSION [address] | Transaction, | | | | | [address] | Provider Unknown | | | | | [place] | [phone] | | | | | [phone] | | | | | | [phone] | | | +--------+ + + + [...] | | | | | [place] [address] | | | | | | [phone] | | | | | | | | +--------+---------+ + + + documented as of this encounter Visit Diagnoses Not on filedocumented in this encounter"
--- OUTSIDE RECORDS SUMMARY | ~2019-06-25 | XMS | Encounter Summary ---
Demographics + + + | Address | [address] | | | [place] [address] | + + + | Home Phone | | + + + | Preferred Language | Unknown | + + + | Marital Status | | + + + | Christianity Affiliation | Unknown | + + + | Race | Unknown | + + + | Ethnic Group | Unknown | + + + Author + + + | Author | [facility] | | | and [place] | + + + | Organization | [facility] | | | [...] Team Providers + +------+ + | Care Flight Controls Engineer Name | Role | Phone | + +------+ + | Tucker Townsend MD | PCP | | + +------+ + Encounter Details +--------+ + + + + | Date | Type | Department | Care Team | Description | +--------+ + + + + | 07/15/ | Orders Only | [facility] | Dylan Hewitt V, | | | 2015 | | CONVERSION [address] | MD [address] | | | | | [address] | [address] | | | | | [place], [place] | [address] | | | | | [address] | | | | | | [phone] | | | +--------+ + + + [...] | | 2018 | Visit | | [address] | | | | | | [place] [address] | | | | | | [phone] | | | | | | | | +--------+---------+ + + + documented as of this encounter Procedures + +--------+ + + + | Procedure Name | Priori | Date/Time | Associated Diagnosis | Comments | | | ty | | | | + +--------+ + + + | ECHO INTERPRETATION | Routin | 07/15/2016 | | Results for this | | OF OUTSIDE FILMS | e | 5:11 PM | | procedure are in the | | | | PST | | results section. | + +--------+ + + + documented in this encounter Results ECHO Interpretation of Outside Films (07/15/2016 5:11 PM PST) + + | Specimen | + + | | + + + + + | Impressions | Performed At | + + + | 1. The left ventricle is normal in size, wall thickness and systolic | | | function EF 60-65%. 2. The right ventricle is normal in size and | | | function. 3. Mild bi-atrial enlargement. 4. Mild degenerative | | | changes in the aortic and mitral valve. 5. There is no pericardial | | | effusion. | | + + + + + + | Narrative | Performed At | + + + | Patient Name: Helder Holguin Date of : 1950 | | | Performing Physician: Jewel Mcdowell MD | | | | | | INDICATIONS stroke CONCLUSIONS 1. The | | | left ventricle is normal in size, wall thickness and systolic function | | | EF 60-65%. 2. The right ventricle is normal in size and function. | | | 3. Mild bi-atrial enlargement. 4. Mild degenerative changes in the | | | aortic and mitral valve. 5. There is no pericardial effusion. | | | FINDINGS -------- ECG rhythm: Sinus rhythm. Study: A 2-dimensional | | | transthoracic echocardiogram with m-mode, spectral and color flow | | | Doppler was perfomed. Study: This was a technically adequate study. | | | Study: Suboptimal image quality - poor subcostal views. Left | | | Ventricle: Overall left ventricular systolic function is normal with, | | | an EF between 60 - 65 %. Left Ventricle: The left ventricle cavity | | | size is normal. Left Ventricle: Left ventricular wall thickness is | | | normal. Right Ventricle: The right ventricle is normal in size and | | | function. Left Atrium: The left atrium is mildly enlarged. Right | | | Atrium: The right atrium is mildly enlarged. Right Atrium: Mild | | | bi-atrial enlargement. Aortic Valve: The aortic valve is trileaflet. | | | Aortic Valve: There is mild aortic valve sclerosis without stenosis. | | | Aortic Valve: There is no evidence of aortic regurgitation. Mitral | | | Valve: There is trace mitral regurgitation. Mitral Valve: Mild mitral | | | annular calcification present. Tricuspid Valve: The tricuspid valve | | | appears structurally normal. Tricuspid Valve: Pulmonary artery | | | systolic pressure could not be assessed due to the absence of adequate | | | TR jet. Pulmonic Valve: The pulmonic valve is normal. Pulmonic | | | Valve: Mild degenerative changes in the aortic and mitral valve. | | | Pericardium: There is no pericardial effusion. Pericardium: No | | | pleural effusion seen. IVC/Hepatic Veins: The IVC was not well | | | visualized. Aorta: The aortic root, ascending aorta are within normal | | | dimensions. MEASUREMENTS Ao asc: 3.01 cm Ao | | | sinus: 3.44 cm EDV(Teich): 103.22 ml IVSd: 0.92 cm LVIDd: | | | 4.71 cm LVPWd: 0.95 cm %FS: 36.17 % EF(Teich): 65.80 % | | | ESV(Teich): 35.30 ml LVIDs: 3.01 cm SV(Teich): 67.92 ml | | | LVEF MOD A2C: 62.23 % SV MOD A2C: 66.77 ml LVEF MOD A4C: | | | 59.75 % SV MOD A4C: 75.15 ml EF Biplane: 62.50 % LVEDV MOD | | | BP: 118.12 ml LVESV MOD BP: 44.28 ml LVEDV MOD A2C: 107.29 | | | ml LVLd A2C: 7.94 cm LVEDV MOD A4C: 125.78 ml LVLd A4C: | | | 8.29 cm LVESV MOD A2C: 40.51 ml LVLs A2C: 6.65 cm LVESV MOD | | | A4C: 50.62 ml LVLs A4C: 6.50 cm LAESV(A-L): 81.10 ml LAESV | | | Index (A-L): 38.25 ml/m2 LAAs A2C: 26.65 cm2 LAESV A-L A2C: | | | 102.65 ml LALs A2C: 5.87 cm LAAs A4C: 21.05 cm2 LAESV A-L | | | A4C: 63.76 ml LALs A4C: 5.90 cm RAAs: 21.00 cm2 RAESV A-L: | | | 79.47 ml RAESV MOD: 74.61 ml RALs: 4.71 cm AV maxPG: | | | 9.41 mmHg AV meanP.68 mmHg AV Vmax: 1.53 m/s AV Vmean: | | | 1.01 m/s AV VTI: 29.22 cm LVOT maxP.43 mmHg LVOT meanPG: | | | 2.31 mmHg LVOT Vmax: 1.05 m/s LVOT Vmean: 0.72 m/s LVOT | | | VTI: 23.30 cm MV A Brent: 0.69 m/s MV DecT: 126.46 ms MV E | | | Brent: 1.50 m/s MV E/A Ratio: 2.16 MV PHT: 36.67 ms MVA By | | | PHT: 5.99 cm2 Septal e': 0.07 m/s Septal E/e': 21.38 | | | Lateral e': 0.10 m/s Lateral E/e': 14.39 Brass Pickler: JORDAN | | | Authenticated by: Jewel Mcdowell MD Report Date/Time: 07-16-2016 | | | 08:18:59 | | + + + + + | Procedure Note | + + | Landen, Chava Conversion - 03/17/2019 10:40 PM PDT Patient Name: Hubert Holguin of | | : 1950 Performing Physician: Jewel Mcdowell | | INDICATIONS s | | kemal CONCLUSIONS 1. The left ventricle is normal in size, wall thickness and | | systolic function EF 60-65%.2. The right ventricle is normal in size and function.3. | | Mild bi-atrial enlargement.4. Mild degenerative changes in the aortic and mitral | | valve.5. There is no pericardial effusion. FINDINGS--------ECG rhythm: Sinus | | rhythm.Study: A 2-dimensional transthoracic echocardiogram with m-mode, spectral and | | color flow Doppler was perfomed.Study: This was a technically adequate study.Study: | | Suboptimal image quality - poor subcostal views.Left Ventricle: Overall left ventricular | | systolic function is normal with, an EF between 60 - 65 %.Left Ventricle: The left | | ventricle cavity size is normal.Left Ventricle: Left ventricular wall thickness is | | normal.Right Ventricle: The right ventricle is normal in size and function.Left Atrium: | | The left atrium is mildly enlarged.Right Atrium: The right atrium is mildly | | enlarged.Right Atrium: Mild bi-atrial enlargement.Aortic Valve: The aortic valve is | | trileaflet.Aortic Valve: There is mild aortic valve sclerosis without stenosis.Aortic | | Valve: There is no evidence of aortic regurgitation.Mitral Valve: There is trace mitral | | regurgitation.Mitral Valve: Mild mitral annular calcification present.Tricuspid Valve: | | The tricuspid valve appears structurally normal.Tricuspid Valve: Pulmonary artery | | systolic pressure could not be assessed due to the absence of adequate TR jet.Pulmonic | | Valve: The pulmonic valve is normal.Pulmonic Valve: Mild degenerative changes in the | | aortic and mitral valve.Pericardium: There is no pericardial effusion.Pericardium: No | | pleural effusion seen.IVC/Hepatic Veins: The IVC was not well visualized.Aorta: The | | aortic root, ascending aorta are within normal dimensions. MEASUREMENTS Ao | | asc: 3.01 cmAo sinus: 3.44 cmEDV(Teich): 103.22 mlIVSd: 0.92 cmLVIDd: 4.71 | | cmLVPWd: 0.95 cm%FS: 36.17 %EF(Teich): 65.80 %ESV(Teich): 35.30 mlLVIDs: 3.01 | | cmSV(Teich): 67.92 mlLVEF MOD A2C: 62.23 %SV MOD A2C: 66.77 mlLVEF MOD A4C: | | 59.75 %SV MOD A4C: 75.15 mlEF Biplane: 62.50 %LVEDV MOD BP: 118.12 mlLVESV MOD BP: | | 44.28 mlLVEDV MOD A2C: 107.29 mlLVLd A2C: 7.94 cmLVEDV MOD A4C: 125.78 mlLVLd | | A4C: 8.29 cmLVESV MOD A2C: 40.51 mlLVLs A2C: 6.65 cmLVESV MOD A4C: 50.62 mlLVLs | | A4C: 6.50 cmLAESV(A-L): 81.10 mlLAESV Index (A-L): 38.25 ml/m2LAAs A2C: 26.65 | | [id number] A-L A2C: 102.65 mlLALs A2C: 5.87 cmLAAs A4C: 21.05 [id number] A-L A4C: | | 63.76 mlLALs A4C: 5.90 cmRAAs: 21.00 [id number] A-L: 79.47 mlRAESV MOD: 74.61 | | mlRALs: 4.71 cmAV maxP.41 mmHgAV meanP.68 mmHgAV Vmax: 1.53 m/Tripp Vmean: | | 1.01 m/Tripp VTI: 29.22 cmLVOT maxP.43 mmHgLVOT meanP.31 mmHgLVOT Vmax: | | 1.05 m/sLVOT Vmean: 0.72 m/sLVOT VTI: 23.30 cmMV A Brent: 0.69 m/sMV DecT: 126.46 | | msMV E Brent: 1.50 m/sMV E/A Ratio: 2.16MV PHT: 36.67 msMVA By PHT: 5.99 | | to1Khibdh e': 0.07 m/sSeptal E/e': 21.38Lateral e': 0.10 m/sLateral E/e': 14.39 | | Brass Pickler: DHAuthenticated by: Jewel Mcdowell [facility] Date/Time: 07-16-2016 | | 08:18:59 IMPRESSION: 1. The left ventricle is normal in size, wall thickness and | | systolic function EF 60-65%.2. The right ventricle is normal in size and function.3. | | Mild bi-atrial enlargement.4. Mild degenerative changes in the aortic and mitral | | valve.5. There is no pericardial effusion. | |Pericardium: No pleural effusion seen. | |IVC/Hepatic Veins: The IVC was not well visualized. | |Aorta: The aortic root, ascending aorta are within normal dimensions. | | | |MEASUREMENTS | | | |Ao asc: 3.01 cm | |Ao sinus: 3.44 cm | |EDV(Teich): 103.22 ml | |IVSd: 0.92 cm | |LVIDd: 4.71 cm | |LVPWd: 0.95 cm | |%FS: 36.17 % | |EF(Teich): 65.80 % | |ESV(Teich): 35.30 ml | |LVIDs: 3.01 cm | |SV(Teich): 67.92 ml | |LVEF MOD A2C: 62.23 % | |SV MOD A2C: 66.77 ml | |LVEF MOD A4C: 59.75 % | |SV MOD A4C: 75.15 ml | |EF Biplane: 62.50 % | |LVEDV MOD BP: 118.12 ml | |LVESV MOD BP: 44.28 ml | |LVEDV MOD A2C: 107.29 ml | |LVLd A2C: 7.94 cm | |LVEDV MOD A4C: 125.78 ml | |LVLd A4C: 8.29 cm | |LVESV MOD A2C: 40.51 ml | |LVLs A2C: 6.65 cm | |LVESV MOD A4C: 50.62 ml | |LVLs A4C: 6.50 cm | |LAESV(A-L): 81.10 ml | |LAESV Index (A-L): 38.25 ml/m2 | |LAAs A2C: 26.65 cm2 | |LAESV A-L A2C: 102.65 ml | |LALs A2C: 5.87 cm | |LAAs A4C: 21.05 cm2 | |LAESV A-L A4C: 63.76 ml | |LALs A4C: 5.90 cm | |RAAs: 21.00 cm2 | |RAESV A-L: 79.47 ml | |RAESV MOD: 74.61 ml | |RALs: 4.71 cm | |AV maxP.41 mmHg | |AV meanP.68 mmHg | |AV Vmax: 1.53 m/s | |AV Vmean: 1.01 m/s | |AV VTI: 29.22 cm | |LVOT maxP.43 mmHg | |LVOT meanP.31 mmHg | |LVOT Vmax: 1.05 m/s | |LVOT Vmean: 0.72 m/s | |LVOT VTI: 23.30 cm | |MV A Brent: 0.69 m/s | |MV DecT: 126.46 ms | |MV E Brent: 1.50 m/s | |MV E/A Ratio: 2.16 | |MV PHT: 36.67 ms | |MVA By PHT: 5.99 cm2 | |Septal e': 0.07 m/s | |Septal E/e': 21.38 | |Lateral e': 0.10 m/s | |Lateral E/e': 14.39 | | | |Brass Pickler: JORDAN | |Authenticated by: Jewel Mcdowell MD | |Report Date/Time: 07-16-2016 08:18:59 | | | |IMPRESSION: | |1. The left ventricle is normal in size, wall thickness and systolic function EF 60-65%. | |2. The right ventricle is normal in size and function. | |3. Mild bi-atrial enlargement. | |4. Mild degenerative changes in the aortic and mitral valve. | |5. There is no pericardial effusion. | + + documented in this encounter Visit Diagnoses Not on filedocumented in this encounter"
--- OUTSIDE RECORDS SUMMARY | ~2019-06-25 | XMS | Encounter Summary ---
Demographics + + + | Address | [address] | | | [place] [address] | + + + | Home Phone | | + + + | Preferred Language | Unknown | + + + | Marital Status | | + + + | Pentecostalism Affiliation | Unknown | + + + | Race | Unknown | + + + | Ethnic Group | Unknown | + + + Author + + + | Author | [facility] | | | and [place] | + + + | Organization | [facility] | | | and [...] Team Providers + +------+ + | Care Bail Agent Name | Role | Phone | + +------+ + PCP | Unavailable | + +------+ + Encounter Details +--------+ + + + + | Date | Type | Department | Care Team | Description | +--------+ + + + + | 10/14/ | Hospital | [facility] | Conversion | Spondylolisthesis of | | 2019 | Encounter | [facility] | Transaction, | cervical region; | | | | [address] | Provider Unknown | Degeneration of | | | | [address] [place], [place] | | intervertebral disc | | | | [address] | | of cervical region; | | | | [phone] | | Bulging of cervical | | [...] | gabapentin | | | 5 | // | | | (NEURONTIN) 300 mg | [...] | rOPINIRole | | | 11 | //20 | | | (REQUIP) 0.25 mg | | | | 19 | | | tablet | | | | | | + + + +---------+ + + | sucralfate | | | 99 | 03/20/20 | | | (CARAFATE) 1 g | | | | 19 | | | tablet | | | | | | + + + +---------+ + + | warfarin | | | 99 | 03/20/20 | | | (COUMADIN) 1 mg | [...] Surgery | Finn Gama, | | | 2019 | Visit | | [address] | | | | | | [place] [address] | | | | | | [phone] | | | | | | | [...] Note | + + | Chava Schuster Conversion - 03/08/2019 8:48 PM PDT CERVICAL [...]
--- OUTSIDE RECORDS SUMMARY | ~2019-06-25 | XMS | Encounter Summary ---
Demographics + + + | Address | [address] | | | [place] [address] | + + + | Home Phone | | + + + | Preferred Language | Unknown | + + + | Marital Status | | + + + | Bahai Affiliation | Unknown | + + + | Race | Unknown | + + + | Ethnic Group | Unknown | + + + Author + + + | Author | [facility] | | | and [place] | + + + | Organization | [facility] | | | [...] + +------+ + | Care Quality Assurance Qa Lab Analyst Name | Role | Phone | + +------+ + PCP | Unavailable | + +------+ + Encounter Details +--------+ + + + + | Date | Type | Department | Care Team | Description | +--------+ + + + + | 10/14/ | Hospital | [facility] | Conversion | Spondylolisthesis of | | 2019 | Encounter | [facility] | Transaction, | cervical region; | | | | [address] | Provider Unknown | Degeneration of | | | | [address] [place], [place] | | intervertebral disc | | | | [address] | | of cervical region; | | | | [phone] | | Bulging of cervical | | [...] [address] | | | | | | [place] [address] | | | | | | [phone] | | | | | | | [...]
--- OUTSIDE RECORDS SUMMARY | ~2019-06-25 | XMS | Clinical Summary ---
Demographics + + + | Address | [address] | | | [place] [address] | + + + | Home Phone | | + + + | Preferred Language | Unknown | + + + | Marital Status | | + + + | Adventism Affiliation | Unknown | + + + | Race | Unknown | + + + | Ethnic Group | Unknown | + + + Author + + + | Author | [facility] (Historical as of | | | 03-12-19) | + + + | Organization | [facility] (Historical as of | | | 03-12-19) [...] Team Providers + +------+ + | Care Roundhouse Firer/Fireman Name | Role | Phone | + [...] +------+-------+ + | MEDICARE | MEDICA | [id number] | | | [address] | | | RE | | | | [place] [address] | | | IP-OP | | | [...] [place] | | | [address] | [place] [address] | + +--------+ +--------+ + +
--- OUTSIDE RECORDS SUMMARY | ~2019-06-25 | XMS | Encounter Summary ---
Demographics + + + | Address | [address] | | | [place] [address] | + + + | Home Phone | | + + + | Preferred Language | Unknown | + + + | Marital Status | | + + + | Methodist Affiliation | Unknown | + + + | Race | Unknown | + + + | Ethnic Group | Unknown | + + + Author + + + | Author | [facility] | | | and [place] | + + + | Organization | [facility] | | [...] | + + +---------+ + | Kirstie Gtaes | ECON | Unknown | | + + +---------+ + Care Team Providers + +------+ + | Care Wedding Planning Internship Name | Role | Phone | + [...] | | | | [place] | [phone] | | | | | [address] | | | | | | [phone] | | | +--------+ + + + [...] | | | | | [place] [address] | | | | | | [phone] | | | | | | | | +--------+---------+ + + + documented as of this encounter Visit Diagnoses Not on filedocumented in this encounter"
--- OUTSIDE RECORDS SUMMARY | ~2019-06-25 | XMS | Clinical Summary ---
Demographics + + + | Address | [address] | | | [place] [address] | + + + | Home Phone | | + + + | Preferred Language | Unknown | + + + | Marital Status | | + + + | Pentecostalism Affiliation | Unknown | + + + | Race | Unknown | + + + | Ethnic Group | Unknown | + + + Author + + + | Author | [facility] | | | and [place] | + + + | Organization | [facility] | | [...] Team Providers + +------+ + | Care Park Recreation Manager Name | Role | Phone | [...] | + + + + | INFLUENZA, [id number], | 07/31/2009 | | | UNSPECIFIED | [...] | Office | Orthopedic Surgery | Finn Gmaa, | | | 2018 | Visit | | [address] | | | | | | [place] [address] | | | | | | [phone] | | | | | | | [...] | 12/28/2009 | | | Pneumococcal 65+ (1 | 8 | | | | of 2 - [...] +--------+ +---------+--------+ | MEDICARE | MEDICA | [id number] | 09/24/18 | [phone] | | Medica | | | RE | | 79-Pre | 5 | | re | | | PART A | | sent | | | | | | AND B | | | | | | + +--------+ +--------+ +---------+--------+ | [employer] | MODA | [id number] | | [phone] | | Medica | [...] Self | [birth year] | [address] | | | al/Fam | | 1951 | [phone] | [address] [place], | | | [place] | | | [address] (Home) | [place] [address] | + +--------+ +--------+ + + Advance Directives + + + + + | Type | Date Recorded | Patient | Explanation | | | | Wood Stainer | | + + + + + | Power of | | | | | Music Manager | | | | + + + + + | Advance | | | | | Directive | | | | + + + + +
--- OUTSIDE RECORDS SUMMARY | ~2019-06-25 | XMS | Encounter Summary ---
Demographics + + + | Address | [address] | | | [place] [address] | + + + | Home Phone | | + + + | Preferred Language | Unknown | + + + | Marital Status | | + + + | Rastafarian Affiliation | Unknown | + + + | Race | Unknown | + + + | Ethnic Group | Unknown | + + + Author + + + | Author | [facility] | | | and [place] | + + + | Organization | [facility] | | | [...] Team Providers + +------+ + | Care Motor Scooter Repairer Name | Role | Phone | + +------+ + PCP | Unavailable | + +------+ + Encounter Details +--------+ + + + + | Date | Type | Department | Care Team | Description | +--------+ + + + + | 12/19/ | Hospital | [facility] | | | | 1998 | Encounter | MED CTR GENERIC OP | | | | | | CONV DEPT [address] | | | | | | [place], | | | | | | [place] [address] | | | | | | [phone] | | | +--------+ + + + [...] | | 2019 | Visit | | [address] | | | | | | [place] [address] | | | | | | [phone] | | | | | | | | +--------+---------+ + + + documented as of this encounter Visit Diagnoses Not on filedocumented in this encounter"
--- OUTSIDE RECORDS SUMMARY | ~2019-06-25 | XMS | Encounter Summary ---
Demographics + + + | Address | [address] | | | [place] [address] | + + + | Home Phone | | + + + | Preferred Language | Unknown | + + + | Marital Status | | + + + | Yarsanism Affiliation | Unknown | + + + | Race | Unknown | + + + | Ethnic Group | Unknown | + + + Author + + + | Author | [facility] | | | and [place] | + + + | Organization | [facility] | | | [...] Team Providers + +------+ + | Care Bronze Plater Name | Role | Phone | + +------+ + PCP | Unavailable | + +------+ + Encounter Details +--------+ + + + + | Date | Type | Department | Care Team | Description | +--------+ + + + + | 12/19/ | Hospital | [facility] | | | | 1998 | Encounter | MED CTR GENERIC OP | | | | | | CONV DEPT [address] | | | | | | [place], | | | | | | [place] [address] | | | | | | [phone] | | | +--------+ + + + [...] | | | | | [place] [address] | | | | | | [phone] | | | | | | | | +--------+---------+ + + + documented as of this encounter Visit Diagnoses Not on filedocumented in this encounter"
--- OUTSIDE RECORDS SUMMARY | ~2019-06-25 | XMS | Clinical Summary ---
Demographics + + + | Address | [address] | | | [place] [address] | + + + | Home Phone | | + + + | Preferred Language | Unknown | + + + | Marital Status | | + + + | Adventist Affiliation | Unknown | + + + | Race | Unknown | + + + | Ethnic Group | Unknown | + + + Author + + + | Author | [facility] | | | and [place] | + + + | Organization | [facility] | | | [...] Team Providers + +------+ + | Care Welding Process Engineer Name | Role | Phone | [...] | + + + + | INFLUENZA, [id number], | 07/31/2009 | | | UNSPECIFIED | [...] | | 2018 | Visit | | [address] | | | | | | [place] [address] | | | | | | [phone] | | | | | | | [...] +--------+ +---------+--------+ | MEDICARE | MEDICA | [id number] | 09/24/18 | [phone] | | Medica | | | RE | | 79-Pre | 5 | | re | | | PART A | | sent | | | | | | AND B | | | | | | + +--------+ +--------+ +---------+--------+ | [employer] | MODA | [id number] | | [phone] | | Medica | [...] | | | 0 (Home) | [place] [address] | + +--------+ +--------+ + + Advance Directives + + + + + | Type | Date Recorded | Patient | Explanation | | | | Trench Shovel Operator | | + + + + + | Power of | | | | | Rn Field | | | | + + + + + | Advance | | | | | Directive | | | | + + + + +
--- OUTSIDE RECORDS SUMMARY | ~2019-06-25 | XMS | Encounter Summary ---
Demographics + + + | Address | [address] | | | [place] [address] | + + + | Home Phone | | + + + | Preferred Language | Unknown | + + + | Marital Status | | + + + | Mormonism Affiliation | Unknown | + + + | Race | Unknown | + + + | Ethnic Group | Unknown | + + + Author + + + | Author | [facility] | | | and [place] | + + + | Organization | [facility] | | | and [...] Team Providers + +------+ + | Care Coping Machine Assembler Name | Role | Phone | + [...] | | | | [place] | [phone] | | | | | [address] | | | | | | [phone] | | | +--------+ + + + [...] | | | | | [place] [address] | | | | | | [phone] | | | | | | | | +--------+---------+ + + + documented as of this encounter Visit Diagnoses Not on filedocumented in this encounter"
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
[~2019-06-25 20:33] MED LIST changes: +MAGNESIUM400 MG PO
--- OUTSIDE RECORDS SUMMARY | 2019-06-25 20:36 | XMS ---
PreManage Notification: FRED BAJWA Security Materials Associate Events No recent Security Events currently on file CRITERIA MET - [facility] - 2 Visits in 30 Days CARE PROVIDERS MECHE VILLARREAL [facility] 11/01/2018-Current PHONE: [phone] Justina Cid [facility] [facility] 12/25/2017-Current PHONE: [phone] Justina Cid Primary Care 12/25/2017-Current PHONE: [phone] DR MECHE VILLARREAL Primary Care 10/25/2016-Current PHONE: [phone] Meet has no Care Guidelines for this patient. [place] VISIT COUNT (12 MO.) 5 [facility] TOTAL 5 NOTE: Visits indicate total known visits. ED/UCC VISIT TRACKING (12 MO.) 06/25/2019 20:33 [facility] [place] TYPE: Emergency COMPLAINT: - HEARTBURN 05/29/2019 18:26 [facility] [place] TYPE: Emergency COMPLAINT: - CHEST PRESSURE, PALPITATIONS DIAGNOSES: - Hypokalemia - Allergy status to narcotic agent status - 1 Type 2 diabetes mellitus with hyperglycemia - halfway (current) use of insulin - Essential (primary) hypertension - Palpitations - Other usp (current) drug therapy - intermediate manager (current) use of anticoagulants - Hypomagnesemia - Allergy status to oth drug/meds/biol subst status - Unspecified atrial fibrillation - Gastro-esophageal reflux disease without esophagitis 03/21/2019 19:42 [facility] [place] TYPE: Emergency COMPLAINT: - SOB/DIZZINESS 02/18/2019 18:49 [facility] [place] TYPE: Emergency COMPLAINT: - SWELLING IN FEET DIAGNOSES: - Unspecified atrial fibrillation - Essential (primary) hypertension - intermediate manager (current) use of anticoagulants - Gastro-esophageal reflux disease without esophagitis - Localized edema - Other intermediate manager (current) drug therapy - Allergy status to oth drug/meds/biol subst status - Acquired absence of other specified parts of digestive tract - Other specified soft tissue disorders - Allergy status to narcotic agent status 10/31/2018 10:27 [facility] [place] TYPE: Emergency COMPLAINT: - WEAKNESS DIAGNOSES: - Chr obstructive pulmon disease with (acute) lower resp infct - Gastro-esophageal reflux disease without esophagitis - Allergy status to narcotic agent status - Shortness of breath - Other usp (current) drug therapy - Allergy status to oth drug/meds/biol subst status - Lobar pneumonia, unspecified organism - Unspecified atrial fibrillation - intermediate manager (current) use of anticoagulants - Heart failure, unspecified - Hypertensive heart disease with heart failure INPATIENT VISIT TRACKING (12 MO.) 03/21/2019 19:43 [facility] [place] TYPE: Observation COMPLAINT: - SYNCOPE DIAGNOSES: - Essential (primary) hypertension - Hypokalemia - Chronic atrial fibrillation - intermediate manager (current) use of oral hypoglycemic drugs - 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 - Allergy status to oth drug/meds/biol subst status - Constipation, unspecified - Syncope and collapse - Urinary tract infection, site not specified - Repeated falls - Hypomagnesemia - 1 Type 2 diabetes mellitus without complications - Other intermediate manager (current) drug therapy - Body mass index (BMI) 40.0-44.9, adult - Other chronic pain - halfway (current) use of anticoagulants - Dorsalgia, unspecified - Morbid (severe) obesity due to excess calories - Do not resuscitate - Gastro-esophageal reflux disease without esophagitis - Allergy status to narcotic agent status - intermediate manager (current) use of antibiotics [email or web address]
[2019-06-25] MEDS ORDERED: OMEPRAZOLE20 MG PO (23:08)
== END 2019-06-25 23:21 | disposition home or self-care (01) ==
LOC: ED 20:33
DX: K21.9 Gastro-esophageal reflux disease without esophagitis (principal); I10 Essential (primary) hypertension; I48.91 Unspecified atrial fibrillation; Z87.891 Personal history of nicotine dependence; Z88.8 Allergy status to other drugs, medicaments and biological substances; Z88.5 Allergy status to narcotic agent; Z79.899 Other long term (current) drug therapy; Z79.4 Long term (current) use of insulin; Z79.01 Long term (current) use of anticoagulants
CPT/HCPCS: 99283

== ENCOUNTER 2020-04-06 19:51 | Emergency (ER) | payer MEDICARE, OTHER ==
[~2020-04-06] VITALS: Ht 167.6 cm; Wt 120.0 kg
--- OUTSIDE RECORDS SUMMARY | ~2020-04-06 | XMS | Encounter Summary ---
Demographics + + + | Address | [address] | | | [place] [address] | + + + | Home Phone | | + + + | Preferred Language | Unknown | + + + | Marital Status | | + + + | Methodist Affiliation | Unknown | + + + | Race | White | + + + | Ethnic Group | Not or | + + + Author + + + | Author | [facility] [place] | | | and [place] | + + + | Organization | [facility] [place] | | | and [...] Team Providers + +------+ + | Care Grief Counselor Name | Role | Phone | + [...] | | | | ROBBIE CURRY | [phone] | | | | | [address] | | | | | | [phone] | | | +--------+ + + + [...]
--- OUTSIDE RECORDS SUMMARY | ~2020-04-06 | XMS | Clinical Summary ---
Demographics + + + | Address | [address] | | | [place] [address] | + + + | Home Phone | | + + + | Preferred Language | Unknown | + + + | Marital Status | | + + + | Yazidi Affiliation | Unknown | + + + | Race | White | + + + | Ethnic Group | Not or | + + + Author + + + | Author | [facility] [place] | | | and [place] | + + + | Organization | [facility] [place] | | | [...] Team Providers + +------+ + | Care Bulk System Operator Name | Role | Phone | + +------+ + | Tucker Townsend MD | PCP | | + +------+ + Allergies + [...] | + + + + + + Medications + + + +---------+------+------+-------+ | Medication | Sig | Dispensed | Refills | Star | End | Statu | | | | | | t | Date | s | | | | | | Date | | | + + + +---------+------+------+-------+ | acetaminophen | Take 1 tablet by | | 0 | 10/2 | | Activ | | (TYLENOL) 500 mg | mouth. | | | 7/20 | | e | | tablet | | | | 09 | | | + + + +---------+------+------+-------+ | amitriptyline | Take 2 tablets by | | 0 | 04/2 | | Activ | | (ELAVIL) 10 mg | mouth. | | | 1/20 | | e | | tablet | | | | 10 | | | + + + +---------+------+------+-------+ | glucosamine | Take 1 capsule by | | 0 | 10/2 | | Activ | | sulfate 500 mg | mouth. | | | 7/20 | | e | | capsule | | | | 09 | | | + + + +---------+------+------+-------+ | metoclopramide | Take 1 tablet by | | 0 | 06/3 | | Activ | | (REGLAN) 10 mg | mouth. | | | 0/20 | | e | | tablet | | | | 10 | | | + + + +---------+------+------+-------+ | warfarin | | | 99 | 03/2 | | Activ | | (COUMADIN) 1 mg | | | | 0/20 | | e | | tablet | | | | 19 | | | + + + +---------+------+------+-------+ | | | | 3 | 03/2 | | Activ | | amoxicillin-clavulan | | | | 2/20 | | e | | ate (AUGMENTIN) | | | | 19 | | | | 250-125 mg per | | | | | | | | tablet | | | | | | | + + + +---------+------+------+-------+ | digoxin (LANOXIN) | | | 11 | 03/2 | | Activ | | 250 mcg tablet | | | | 0/20 | | e | | | | | | 19 | | | + + + +---------+------+------+-------+ | gabapentin | | | 5 | 03/1 | | Activ | | (NEURONTIN) 300 mg | | | | 9/20 | | e | | capsule | | | | 19 | | | + + + +---------+------+------+-------+ | CONTOUR TEST strip | | | 1 | 03/2 | | Activ | | | | | | 5/20 | | e | | | | | | 19 | | | + + + +---------+------+------+-------+ | rOPINIRole | | | 11 | 03/2 | | Activ | | (REQUIP) 0.25 mg | | | | 0/20 | | e | | tablet | | | | 19 | | | + + + +---------+------+------+-------+ | sucralfate | | | 99 | 03/2 | | Activ | | (CARAFATE) 1 g | | | | 0/20 | | e | | tablet | | | | 19 | | | + + + +---------+------+------+-------+ Active Problems + + + | Problem | Noted Date | + + + | Spondylolisthesis of cervical region | 10/14/2018 | + + + | Bulging of cervical intervertebral disc | 10/14/2018 | + + + | Cervicalgia | 10/14/2018 | + + + Immunizations + + + + | Name | Administration Dates | Next Due | + + + + | INFLUENZA TRIV | 05/24/2012, 05/07/2010, 05/10/2009, | | | W/PRES(PED/ADOL/ADUL | 05/13/2006, 04/28/2005, 05/08/2004 | | | T),MULTIDOSE | | | + + + + | INFLUENZA, [id number], | 07/31/2009 | | | UNSPECIFIED | | | + + + + | PNEUMOCOCCAL | 12/28/2009 | | | POLYSACCHARIDE | | | | 23-VALENT (PPSV23) | | | + + + + | TDAP, (ADOL/ADULT) | 12/13/2008 | | + + + [...] Filed Vital Signs + + + + + | Vital Sign | Reading | Time Taken | Comments | + + + + + | Blood Pressure | 155/87 | 10/14/2018 1:10 PM | | | | | PDT | | + + + + + | Pulse | 81 | 10/14/2018 1:10 PM | | | | | PDT | | + + + + + | Temperature | - | - | | + + + + + | Respiratory Rate | - | - | | + + + + + | Oxygen Saturation | - | - | | + + + + + | Inhaled Oxygen | - | - | | | Concentration | | | | + + + + + | Weight | 117.9 kg (260 lb) | 10/14/2018 1:10 PM | | | | | PDT | | + + + + + | Height | 167.6 cm (5' 6") | 10/14/2018 1:10 PM | | | | | PDT | | + + + + + | Body Mass Index | 41.97 | 10/14/2018 1:10 PM | | | | | PDT | | + + + + + Plan of Treatment + + + + + | Health Maintenance | Due Date | Last | Comments | | | | Done | | + + + + + | Hepatitis C | | | | | Screening | 3 | | | + + + + + | Med Mgmt: Ca | | | | | | 3 | | | + + + + + | Med Mgmt: Cr | | | | | | 3 | | | + + + + + | Med Mgmt: ECG | | | | | | 3 | | | + + + + + | Med Mgmt: HBA1C | | | | | | 3 | | | + + + + + | Med Mgmt: INR | | | | | | 3 | | | + + + + + | Med Mgmt: K | | | | | | 3 | | | + + + + + | Med Mgmt: Mg | | | | | | 3 | | | + + + + + | Med Mgmt: eGFR | | | | | | 3 | | | + + + + + | Medication | | | | | Management | 3 | | | + + + + + | Colorectal Cancer | | | | | Screening | 3 | | | | (Colonoscopy) | | | | + + + + + | Vaccine: Zoster (1 | | | | | of 2) | 0 | | | + + + + + | AAA Screening | | | | | | 8 | | | + + + + + | Vaccine: | | 12/29/19 | | | Pneumococcal 65+ (1 | 8 | 10 | | | of 1 - PPSV23) | | | | + + + + + | Vaccine: | | 12/14/19 | | | Dtap/Tdap/Td (2 - | 9 | 09 | | | Td) | | | | + + + + + | Adult Annual | | | | | Wellness Visit | 9 | | | + + + + + | Vaccine: Influenza | | 05/24/20 | | | (#1) | 0 | 12, | | | | | 05/15/20 | | | | | 11, | | | | | 05/07/20 | | | | | 10, | | | | | Addition | | | | | al | | | | | history | | | | | exists | | + + + + + Results Not on filefrom Last 3 Months Insurance + +--------+ +--------+ +---------+--------+ | Payer | Benefi | Subscriber | Effect | Phone | Address | Type | | | t Plan | ID | preet | | | | | | / | | Dates | | | | | | Group | | | | | | + +--------+ +--------+ +---------+--------+ | MEDICARE | MEDICA | [id number] | 09/24/18 | [phone] | | Medica | | | RE | | 79-Pre | 5 | | re | | | PART A | | sent | | | | | | AND B | | | | | | + +--------+ +--------+ +---------+--------+ | [employer] | MODA | [id number] | | [phone] | | Medica | | MEDICAID HMO | HEALTH | | 019-Pr | 1 | | id | | | MDCD | | esent | | | | | | [place]MO [place] | | | | | | + +--------+ +--------+ +---------+--------+ + +--------+ +--------+ + + | Guarantor Name | Accoun | Relation to | Date | Phone | Billing Address | | | t Type | Patient | of | | | | | | | | | | + +--------+ +--------+ + + | Helder Holguin | Person | Self [birth year] | [address] | | | al/Fam | | 1951 | [phone] | [address] [place], | | | [place] | | | 0 (Home) | [place] [address] | + +--------+ +--------+ + + | Heldre Holguin | Person | Self [birth year] | [address] | | | al/Fam | | 1951 | [phone] | [address] [place], | | | [place] | | | 0 (Home) | [place] [address] | + +--------+ +--------+ + + Advance Directives + + + + + | Type | Date Recorded | Patient | Explanation | | | | College 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
--- OUTSIDE RECORDS SUMMARY | ~2020-04-06 | XMS | Encounter Summary ---
Demographics + + + | Address | [address] | | | [place] [address] | + + + | Home Phone | | + + + | Preferred Language | Unknown | + + + | Marital Status | | + + + | Mormon Affiliation | Unknown | + + + | Race | White | + + + | Ethnic Group | Not or | + + + Author + + + | Author | [facility] [place] | | | and [place] | + + + | Organization | [facility] [place] | | [...] Team Providers + +------+ + | Care Automatic Pilot Mechanic Name | Role | Phone | + [...] | | | | ROBBI[place] CURRY | [phone] | | | | | [address] | | | | | | [phone] | | | +--------+ + + + [...]
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
--- OUTSIDE RECORDS SUMMARY | ~2020-04-06 | XMS | Encounter Summary ---
Demographics + + + | Address | [address] | | | [place] [address] | + + + | Home Phone | | + + + | Preferred Language | Unknown | + + + | Marital Status | | + + + | Jain Affiliation | Unknown | + + + | Race | White | + + + | Ethnic Group | Not or | + + + Author + + + | Author | [facility] [place] | | | and [place] | + + + | Organization | [facility] [place] | | | [...] Team Providers + +------+ + | Care Ict Analyst Name | Role | Phone | + +------+ + PCP | Unavailable | + +------+ + Encounter Details +--------+ + + + + | Date | Type | Department | Care Team | Description | +--------+ + + + + | 10/14/ | Hospital | [facility] | Conversion | Spondylolisthesis of | | 2019 | Encounter | [facility] | Transaction, | cervical region; | | | | [address] | Provider Unknown | Degeneration of | | | | [address] [place], [place] | [phone] | intervertebral disc | | | | [address] | | of cervical region; | | | | [phone] | | Bulging of cervical | | [...]
--- OUTSIDE RECORDS SUMMARY | ~2020-04-06 | XMS | Encounter Summary ---
Demographics + + + | Address | [address] | | | [place] [address] | + + + | Home Phone | | + + + | Preferred Language | Unknown | + + + | Marital Status | | + + + | Congregational Affiliation | Unknown | + + + | Race | White | + + + | Ethnic Group | Not or | + + + Author + + + | Author | [facility] [place] | | | and [place] | + + + | Organization | [facility] [place] | | | and [place] | + + + | Address | Unknown | + + + | Phone | Unavailable | + + + Support + + +---------+ + | Name | Relationship | Address | Phone | + + +---------+ + | Mayr Jane Gates | ECON | Unknown | | + + +---------+ + | Leora Poole | ECON | Unknown | | + + +---------+ + | Kirstie Gates | ECON | Unknown | | + + +---------+ + Care Team Providers + +------+ + | Care Hybrid Car Mechanic Name | Role | Phone | + +------+ + PCP | Unavailable | + +------+ + Encounter Details +--------+ + + + + | Date | Type | Department | Care Team | Description | +--------+ + + + + | 12/19/ | Hospital | [facility] | | | | 1998 | Encounter | MED [facility] GENERIC OP | | | | | | CONV DEPT [address] | | | | | | [place], | | | | | | [place] [address] | | | | | | [phone] | | | +--------+ + + + [...]
[~2020-04-06 19:51] MED LIST changes: +OMEPRAZOLE20 MG PO
--- NOTE | 2020-04-07 15:11 | EKG ---
[facility] [address] [facility] [place] [address] Signed Atrial fibrillation with rapid ventricular response Left axis deviation Inferior infarct (cited on or before 18-FEB-2019) Anterolateral infarct (cited on or before 21-MAR-2019) Abnormal ECG When compared with ECG of 29-MAY-2019 18:29, Questionable change in initial forces of Anterior leads Questionable change in initial forces of Inferior leads Confirmed by MEERA STAUFFER MD ([id number]) on 04/07/2020 3:11:01 PM Electronically Signed By: MEERA STAUFFER MD 04/07/20 1511 PATIENT NAME: FRED BAJWA Electrocardiogram DATE OF : 54 PHYSICIAN: MEERA STAUFFER MD REPORT #: [id number] REPORT IS CONFIDENTIAL AND NOT TO BE RELEASED WITHOUT AUTHORIZATION
== END 2020-04-06 22:15 | disposition home or self-care (01) ==
LOC: ED 19:51
DX: R55 Syncope and collapse (principal); I10 Essential (primary) hypertension; K21.9 Gastro-esophageal reflux disease without esophagitis; I48.91 Unspecified atrial fibrillation; E11.9 Type 2 diabetes mellitus without complications; Z87.891 Personal history of nicotine dependence; Z88.8 Allergy status to other drugs, medicaments and biological substances; Z88.5 Allergy status to narcotic agent; Z79.899 Other long term (current) drug therapy; Z79.01 Long term (current) use of anticoagulants; Z79.4 Long term (current) use of insulin
CPT/HCPCS: 71045; 80053; 80162; 83735; 83880; 84484; 85025; 85610; 85730; 93005; 93010; 99285-25

== ENCOUNTER 2020-05-11 17:43 | Emergency (ER) | payer MEDICARE, OTHER ==
[~2020-05-11] VITALS: Ht 167.6 cm; Wt 120.0 kg
--- OUTSIDE RECORDS SUMMARY | ~2020-05-11 | XMS | Encounter Summary ---
Demographics + + + | Address | [address] | | | [place] [address] | + + + | Home Phone | | + + + | Preferred Language | Unknown | + + + | Marital Status | | + + + | Restoration Affiliation | Unknown | + + + | Race | White | + + + | Ethnic Group | Not or | + + + Author + + + | Author | [facility] [place] | | | and [place] | + + + | Organization | [facility] [place] | | | and [place] | + + + | Address | Unknown | + + + | Phone | Unavailable | + + + Support + + +---------+ + | Name | Relationship | Address | Phone | + + +---------+ + | Mary Jane Gates | ECON | Unknown | | + + +---------+ + | Leora Poole | ECON | Unknown | | + + +---------+ + | Kirstie Gates | ECON | Unknown | | + + +---------+ + Care Team Providers + +------+ + | Care Quality Assurance Manager Name | Role | Phone | + +------+ + | Tucker Townsend MD | PCP | | + +------+ + Encounter Details +--------+ + + + + | Date | Type | Department | Care Team | Description | +--------+ + + + + | 10/27/ | Orders Only | [facility] GENER[facility] OP | Conversion | | | 2019 | | CONVERSION [address] | Transaction, | | | | | [address] | Provider Unknown | | | | | [place] | [phone] | | | | | [address] | | | | | | [phone] | | | +--------+ + + + + Social History + +-------+ +--------+------+ | Tobacco Use | Types | Packs/Day | Years | Date | | | | | Used | | + +-------+ +--------+------+ | Never Assessed | | | | | + +-------+ +--------+------+ + + + | Sex Assigned at | Date Recorded | | | | + + + | Not on file | | + + + documented as of this encounter Plan of Treatment Not on filedocumented as of this encounter Visit Diagnoses Not on filedocumented in this encounter"
--- OUTSIDE RECORDS SUMMARY | ~2020-05-11 | XMS | Encounter Summary ---
Demographics + + + | Address | [address] | | | [place] [address] | + + + | Home Phone | | + + + | Preferred Language | Unknown | + + + | Marital Status | | + + + | Alevism Affiliation | Unknown | + + + | Race | White | + + + | Ethnic Group | Not or | + + + Author + + + | Author | [facility] [place] | | | and [place] | + + + | Organization | [facility] [place] | | | [...] Team Providers + +------+ + | Care Manugrapher Name | Role | Phone | + +------+ + PCP | Unavailable | + +------+ + Encounter Details +--------+ + + + + | Date | Type | Department | Care Team | Description | +--------+ + + + + | 10/14/ | Hospital | [facility] | Conversion | Spondylolisthesis of | | 2019 | Encounter | [facility] XRAY | Transaction, | cervical region; | | | | [address] | Provider Unknown | Degeneration of | | | | [address] [place], [place] | [phone] | intervertebral disc | | | | [address] | | of cervical region; | | | | [phone] | | Bulging of cervical | | | | | | intervertebral disc; | | | | | | Cervicalgia | +--------+ + + + + Social [...] + + documented as of this encounter Medications at Time of Discharge + + + +---------+ + + | Medication | Sig | Dispensed | Refills | Start | End Date | | | | | | Date | | + + + +---------+ + + | acetaminophen | Take 1 tablet by | | 0 | 05/22/20 | | | (TYLENOL) 500 mg | mouth. | | | 09 | | | tablet | | | | | | + + + +---------+ + + | amitriptyline | Take 2 tablets by | | 0 | 11/15/19 | | | (ELAVIL) 10 mg | mouth. | | | 10 | | | tablet | | | | | | + + + +---------+ + + | digoxin (LANOXIN) | | | 11 | 10/14/19 | | | 250 mcg tablet | | | | 19 | | + + + +---------+ + + | gabapentin | | | 5 | 10/13/19 | | | (NEURONTIN) 300 mg | | | | 19 | | | capsule | | | | | | + + + +---------+ + + | glucosamine | Take 1 capsule by | | 0 | 05/22/20 | | | sulfate 500 mg | mouth. | | | 09 | | | capsule | | | | | | + + + +---------+ + + | metoclopramide | Take 1 tablet by | | 0 | 01/24/20 | | | (REGLAN) 10 mg | mouth. | | | 10 | | | tablet | | | | | | + + + +---------+ + + | rOPINIRole | | | 11 | 10/14/19 | | | (REQUIP) 0.25 mg | | | | 19 | | | tablet | | | | | | + + + +---------+ + + | sucralfate | | | 99 | 10/14/19 | | | (CARAFATE) 1 g | | | | 19 | | | tablet | | | | | | + + + +---------+ + + | warfarin | | | 99 | 10/14/19 | | | (COUMADIN) 1 mg | | | | 19 | | | tablet | | | | | | + + + +---------+ + + documented as of this encounter Plan of Treatment Not on filedocumented as of this encounter Procedures + +--------+ + + + | Procedure Name | Priori | Date/Time | Associated Diagnosis | Comments | | | ty | | | | + +--------+ + + + | XR CERVICAL SPINE 2 | Routin | 10/14/2018 | | Results for this | | OR 3 VIEWS | e | 2:39 PM | | procedure are in the | | | | PDT | | results section. | + +--------+ + + + documented in this encounter Results XR Cervical Spine 2 or 3 Views (10/14/2018 2:39 PM PDT) + + | Specimen | + + | | + + + + + | Impressions | Performed At | + + + | 1. 5 mm of anterolisthesis of C3 on C4, similar to the prior exam. | | | 2. Moderate to severe multilevel degenerative changes. Signed by: | | | Spencer Anglin Sign Date/Time: 10/14/2018 5:28 PM | | + + + + + + | Narrative | Performed At | + + + | CERVICAL SPINE TWO OR THREE VIEWS CLINICAL INFORMATION: Cough and | | | neck pain. COMPARISON: Radiographs from 08/31/2018 FINDINGS: | | | Cervical vertebral bodies maintain appropriate height. There is | | | straightening and slight reversal of the normal cervical lordosis. 5 | | | mm of anterior subluxation of C3 on C4, stable to the comparison | | | exam. Evidence for multilevel degenerative disc disease most | | | pronounced at C3-C4, C4-C5, and C5-C6 with near complete loss of the | | | intervertebral disc space and anterior osteophyte formation. | | | Uncovertebral and facet arthropathy demonstrated at multiple | | | levels. No significant prevertebral soft tissue swelling. | | + + + + + | Procedure Note | + + | Landen, Rad Conversion - 03/08/2019 8:48 PM PDT CERVICAL SPINE TWO OR THREE [...] Date/Time: 10/14/2018 5:28 PM | + + documented in this encounter Visit Diagnoses + + | Diagnosis | + + | Spondylolisthesis of cervical region Acquired spondylolisthesis | + + | Degeneration of intervertebral disc of cervical region | + + | Bulging of cervical intervertebral disc | + + | Cervicalgia | + + documented in this encounter"
--- OUTSIDE RECORDS SUMMARY | ~2020-05-11 | XMS | Encounter Summary ---
Demographics + + + | Address | [address] | | | [place] [address] | + + + | Home Phone | | + + + | Preferred Language | Unknown | + + + | Marital Status | | + + + | Shinto Affiliation | Unknown | + + + | Race | White | + + + | Ethnic Group | Not or | + + + Author + + + | Author | [facility] [place] | | | and [place] | + + + | Organization | [facility] [place] | | | [...] Team Providers + +------+ + | Care Churn Operator Margarine Name | Role | Phone | + [...] | | | | [place] | [phone] | | | | | [address] | | | | | | [phone] | | | +--------+ + + + [...]
--- OUTSIDE RECORDS SUMMARY | ~2020-05-11 | XMS | Encounter Summary ---
Demographics + + + | Address | [address] | | | [place] [address] | + + + | Home Phone | | + + + | Preferred Language | Unknown | + + + | Marital Status | | + + + | Yazdanism Affiliation | Unknown | + + + | Race | White | + + + | Ethnic Group | Not or | + + + Author + + + | Author | [facility] [place] | | | and [place] | + + + | Organization | [facility] [place] | | | and [...] Team Providers + +------+ + | Care Craft Demonstrator Name | Role | Phone | + +------+ + | Tucker Townsend MD | PCP | | + +------+ + Encounter Details +--------+ + + + + | Date | Type | Department | Care Team | Description | +--------+ + + + + | 07/15/ | Orders Only | [facility] | Hewitt[facility]ettemichael Kwan, | | | 2015 | | CONVERSION [address] | MD [address] | | | | | [address] | [place] | | | | | [place], [place] | [address] | | | | | [address] | | | | | | [phone] | | | +--------+ + + + [...] Lateral e': 0.10 m/s Lateral E/e': 14.39 C Engineer: JORDAN | | | Authenticated by: Jewel [...] (A-L): 38.25 ml/m2LAAs A2C: 26.65 | | [id number] A-L A2C: 102.65 mlLALs A2C: 5.87 cmLAAs A4C: 21.05 [id number] A-L A4C: | | 63.76 mlLALs A4C: 5.90 cmRAAs: 21.00 [id number] A-L: 79.47 mlRAESV MOD: 74.61 | | mlRALs: 4.71 cmAV maxP.41 mmHgAV meanP.68 mmHgAV Vmax: 1.53 m/Tripp Vmean: | | 1.01 m/Tripp VTI: 29.22 cmLVOT maxP.43 mmHgLVOT meanP.31 mmHgLVOT Vmax: | | 1.05 m/sLVOT Vmean: 0.72 m/sLVOT VTI: 23.30 cmMV A Brent: 0.69 m/sMV DecT: 126.46 | | msMV E Bretn: 1.50 m/sMV E/A Ratio: 2.16MV PHT: 36.67 msMVA By PHT: 5.99 | | rv5Nbbahi e': 0.07 m/sSeptal E/e': 21.38Lateral e': 0.10 m/sLateral E/e': 14.39 | | C Engineer: DHAuthenticated by: Jewel Mcdowell [facility] Date/Time: 07-16-2016 | | 08:18:59 IMPRESSION: 1. [...] | |Lateral E/e': 14.39 | | | |C Engineer: JORDAN | |Authenticated by: Jewel Mcdowell MD [...]
--- OUTSIDE RECORDS SUMMARY | ~2020-05-11 | XMS | Clinical Summary ---
Demographics + + + | Address | [address] | | | [place] [address] | + + + | Home Phone | | + + + | Preferred Language | Unknown | + + + | Marital Status | | + + + | Cheondoism Affiliation | Unknown | + + + | Race | White | + + + | Ethnic Group | Not or | + + + Author + + + | Author | [facility] [place] | | | and [place] | + + + | Organization | [facility] [place] | | | and [...] Team Providers + +------+ + | Care Child Development Professor Name | Role | Phone | + [...] | + + + + | INFLUENZA, [id number], | 07/31/2009 | | | UNSPECIFIED | [...] +--------+ +---------+--------+ | MEDICARE | MEDICA | [id number] | 09/24/18 | [phone] | | Medica | | | RE | | 79-Pre | 5 | | re | | | PART A | | sent | | | | | | AND B | | | | | | + +--------+ +--------+ +---------+--------+ | [employer] | MODA | [id number] | | [phone] | | Medica | [...] | | | 0 (Home) | [place] [id number] | + +--------+ +--------+ + + Advance Directives + + + + + | Type | Date Recorded | Patient | Explanation | | | | Reducing Machine Operator | | + + + + + | Power of | | | | | [facility] | | | | + + + + + | Advance | | | | | Directive | | | | + + + + +
--- OUTSIDE RECORDS SUMMARY | ~2020-05-11 | XMS | Encounter Summary ---
Demographics + + + | Address | [address] | | | [place] [address] | + + + | Home Phone | | + + + | Preferred Language | Unknown | + + + | Marital Status | | + + + | Amish Affiliation | Unknown | + + + | Race | White | + + + | Ethnic Group | Not or | + + + Author + + + | Author | [facility] | | | and [place] | + + + | Organization | [facility] | | | [...] Team Providers + +------+ + | Care Stained Glass Installer Name | Role | Phone | + +------+ + PCP | Unavailable | + +------+ + Encounter Details +--------+ + + + + | Date | Type | Department | Care Team | Description | +--------+ + + + + | 12/19/ | Hospital | [facility] | | | | 1998 | Encounter | [facility] GENER[facility] | | | | | | CONV DEPT [address] | | | | | [place], | | | | | | [place] [id number] | | | | | | [phone] | | | +--------+ + + + [...]
[2020-05-11] MEDS ORDERED: ANUSOL-HC30 GM PR (20:12)
[2020-05-11] MEDS ORDERED: COLACE100 MG PO (20:12)
== END 2020-05-11 20:27 | disposition home or self-care (01) ==
LOC: ED 17:43
DX: K64.4 Residual hemorrhoidal skin tags (principal); I11.0 Hypertensive heart disease with heart failure; I50.9 Heart failure, unspecified; K21.9 Gastro-esophageal reflux disease without esophagitis; I48.91 Unspecified atrial fibrillation; Z88.8 Allergy status to other drugs, medicaments and biological substances; Z88.5 Allergy status to narcotic agent; Z79.899 Other long term (current) drug therapy; Z79.01 Long term (current) use of anticoagulants; Z79.4 Long term (current) use of insulin
CPT/HCPCS: 80053; 85025; 85610; 85730; 99283

== ENCOUNTER 2020-07-15 16:21 | Observation (INO) | payer MEDICARE, OTHER ==
[~2020-07-15] VITALS: Ht 167.6 cm; Wt 114.3 kg
[~2020-07-15 16:21] MED LIST changes: +ANUSOL-HC30 GM PR
[2020-07-15] MEDS ORDERED: DOK100 MG PO ×2 (18:55)
--- NOTE | 2020-07-15 20:24 | NUR ---
PT ARRIVES TO FLOOR VIA STRETCHER. PT ABLE TO STAND AND TRANSFER TO THE BED. PT SLIGHTLY UNSTEADY DURING TRANSFER, REQUIRES 2PA. PT ALERT AND ORIENTED THROUGHOUT THE ADMISSION PROCESS. PT PROVIDED WITH EDUCATION RE: ROOM AND POC FOR THIS SHIFT. PT STATES UNDERSTANDING. CALL LIGHT EDUCATION PROVIDED. PT AGREES TO USE FOR NEEDS. INFORMED PT NOT TO GET OOB WITHOUT ASSISTANCE. PT STATES UNDERSTANDING. WHITEBOARD UPDATED. CALLLIGHT AND PERSONAL ITEMS WITHIN REACH.
--- NOTE | 2020-07-15 22:00 | NUR ---
ASSESSMNET, VS AND I&O COMPLETED. GCS 15, A AND O TO ALL BUT EVENTS. SCHEDULED MEDS PROVIDED. TELE HR AFIB @ 99. LUNGS CLEAR, HR IRREGULAR. ABD FIRM, NONTENDER, PT STATES NORMAL. REDNESS NOTED BETWEEN BUTTOCKS, UNDER PANNUS AND GROIN, AREA CLEANED. SCATTERED BRUISING NOTED. SCAR ON FROM OF RIGHT RICO. NODULES ON FEET AND ANKLES. IV WNL, CDI, FLUSHED WELL. CBG 290, PRN INSULIN PROVIDED. ATTEMPTED TO START NEW IV X2, UNSUCCESSFUL. NO OTHER NEEDS AT THIS TIME. CALL LIGHT IN REACH.
--- NOTE | 2020-07-15 23:28 | NUR ---
CALL LIGHT ANSWERED. 2 PA, THIS SHARK BIOLOGIST AND RN BRIDGET HELPED PATIENT USE THE BEDSIDE COMMODE. PATIENT VOIDED AND HAD A BOWEL MOVEMENT. PATIENT IS BACK IN CHAIR. CALL LIGHT WITHIN REACH.
--- NOTE | 2020-07-16 00:30 | NUR ---
PT CALLS TO MOVE BACK TO BED. 2PA, FWW TO BED. NO OTHER NEEDS AT THIS TIME. CALL LIGHT IN REACH.
--- NOTE | 2020-07-16 02:30 | NUR ---
VS AND I&O COMPLETED. IV WNL. ASSESSMENT COMPLETED. LUNGS CLEAR, HEART TONES IRREGULAR. ABD FIRM, NONTENDER, PT STATES NORMAL. CMS INTACT. HR AFIB @ 99. NO OTHER NEEDS AT THIS TIME. CALL LIGHT IN REACH.
--- NOTE | 2020-07-16 04:46 | NUR ---
PT RESTING IN BED, EYES CLOSED. RR EVEN, UNLABORED. CALL LIGHT IN REACH.
--- NOTE | 2020-07-16 05:41 | EKG ---
[facility] [address] [place] [address] Signed Atrial fibrillation with rapid ventricular response with premature ventricular or aberrantly conducted complexes Left axis deviation Inferior infarct (cited on or before 18-FEB-2019) Abnormal ECG When compared with ECG of 06-APR-2020 19:59, No significant change was found Confirmed by KATHY HARDIN MD ([id number]) on 07/16/2020 5:40:45 AM Electronically Signed By: KATHY HARDIN MD 07/16/20 0541 PATIENT NAME: FRED BAJWA Electrocardiogram DATE OF : 54 PHYSICIAN: KATHY HARDIN MD REPORT #: [id number] REPORT IS CONFIDENTIAL AND NOT TO BE RELEASED WITHOUT AUTHORIZATION
--- NOTE | 2020-07-16 06:06 | NUR ---
VS AND I&O COMPLETED. PT ASSISTED, 2P FWW, TO CHAIR. BRIEFS CHANGED. NO OTHER NEEDS AT THIS TIME. CALL LIGHT IN REACH.
--- NOTE | 2020-07-16 07:28 | NUR ---
REPORT RECIEVED FROM FLORIDALMA CASTANEDA. PT SLEEPING SITTING UP IN CHAIR. TELE AFIB 90-100 RATE MOST OF NIGHT.
--- NOTE | 2020-07-16 08:28 | NUR ---
PT SITTING UP IN CHAIR FOR BREAKFAST. VERY TALKATIVE. FORGOT HE ALREADY ORDERED BREAKFAST. CALL NATI IN REACH. HR IRREGULAR, TELE IN PLACE. STATES HE SLEEPS WELL HERE.
--- NOTE | 2020-07-16 09:48 | NUR ---
PATIENT BACK TO BED FROM CHAIR, 2PA FWW. PATIENT COMPLAINING OF HEADACH AND DIMITRI RN NOTIFIED. FRESH WATER GIVEN. CALL LIGHT IN REACH. NO FURTHER NEEDS AT THIS TIME. NO VOID, WILL CHECK BACK IN IN AN HOUR.
--- NOTE | 2020-07-16 09:50 | NUR ---
PATIENT WANTED TO GET FROM HIS CHAIR TO THE BED, TWO MUD MIXER'S WERE PRESENT, PATIEINT WAS USING A WALKER, PATIENT STOOD ON HIS OWN AND WITH NO ASSISTANCE WENT OVER TO THE BED, PATIENTS BREAFAST AND LIQUIDS WERE ALL ATE AND DRANK 100%, THOUGH PATIEINT STATES HE IS "FEELING WORSE THAN HE DID YESTERDAY", HE SEEMS TO BE ABLE TO TRANSFER AND HAVE AN APPETITE WELL
--- NOTE | 2020-07-16 09:55 | NUR ---
PATIENT WANTED TO GO BACK TO BED FROM CHAIR. FERN SANCHEZ CAME IN TO HELP THIS HOME PERFORMANCE LABORER GET HIM BACK TO BED, PATIENT STOOD UP AND TRANSFERED WITH JUST A STAND BY ASSIST. PATIENT STARTED COMPLAING ABOUT A HEADACHE AND NAUSIA ONCE HE GOT BACK TO BED THEN STATED, "I WOULD BE SURPRISED IF THEY SENT ME HOME TODAY". RN NOTFIED. FRESH WATER GIVEN. PATIENT REFUSED AM CARE. CALL LIGHT IN REACH. NO FURTHER NEEDS AT THIS TIME. NO VOID, WILL CHECK BACK IN IN ABOUT A HOUR.
--- NOTE | 2020-07-16 11:00 | NUR ---
PT BACK TO CHAIR FOR LUNCH. PT AMBULATED ON OWN WITH FWW. ABLE TO GET IN AND OUT OF BED BY HIMSELF. STATES HE LOVES IT HERE AND WISHES HE COULD MOVE IN.
[2020-07-16] MEDS ORDERED: PANTOPRAZOLE SO40 MG PO ×2 (11:14)
[2020-07-16] MEDS ORDERED: PEPCID AC20 MG PO ×2 (11:17)
[2020-07-16] MEDS ORDERED: DULOXETINE HCL60 MG PO ×2 (11:19)
[2020-07-16] MEDS ORDERED: METAMUCIL PACK3.4 GM PO ×2 (11:19)
[2020-07-16] MEDS ORDERED: K-TAB ER20 MEQ PO ×2 (11:27)
[2020-07-16] MEDS ORDERED: WARFARIN SODIUM5 MG PO ×4 (11:30)
--- NOTE | 2020-07-16 11:35 | NUR ---
MEDICATION LIST UPDATED BASED ON DR. VILLARREAL'S NOTE FROM 07/05/2020, ALSO REVIEWED MEDICATION CLAIM HISTORY FOR ADDED INFORMATION.
[2020-07-16] MEDS ORDERED: KEFLEX500 MG PO ×2 (12:13)
== END 2020-07-16 13:50 | disposition home or self-care (01) ==
LOC: ED 16:21 → MS 16:22
PROVIDERS: ADMIT Internal Medicine; ATTEND Internal Medicine
DX: I48.91 Unspecified atrial fibrillation (principal); R05 Cough; I11.0 Hypertensive heart disease with heart failure; I50.9 Heart failure, unspecified; E11.9 Type 2 diabetes mellitus without complications; K21.9 Gastro-esophageal reflux disease without esophagitis; M19.90 Unspecified osteoarthritis, unspecified site; Z20.828 Contact with and (suspected) exposure to other viral communicable diseases; Z90.49 Acquired absence of other specified parts of digestive tract; Z88.8 Allergy status to other drugs, medicaments and biological substances; Z88.5 Allergy status to narcotic agent; Z79.899 Other long term (current) drug therapy; Z79.4 Long term (current) use of insulin; Z79.01 Long term (current) use of anticoagulants; K59.00 Constipation, unspecified
CPT/HCPCS: 36415; 71045; 80048; 80053; 80162; 81001; 83735; 83880; 84484; 85025; 85610; 87077; 87088; 87186; 93005; 93010; 96365; 96366; 96375; 99285-25; C9803; G0378; J0696; J1160; J1815; U0003

== ENCOUNTER 2020-07-22 21:04 | Emergency (ER) | payer MEDICARE, OTHER ==
[~2020-07-22] VITALS: Ht 167.6 cm; Wt 114.1 kg
[~2020-07-22 21:04] MED LIST changes: +DOK100 MG PO; +DULOXETINE HCL60 MG PO; +METAMUCIL PACK3.4 GM PO; +PEPCID AC20 MG PO
--- OUTSIDE RECORDS SUMMARY | 2020-07-22 21:06 | XMS ---
PreManage Notification: FRED BAJWA Security Sap Bw Bi Developer Events No recent Security Events currently on file CRITERIA MET - [facility] - 2 Visits in 30 Days CARE PROVIDERS PHIL [facility] 11/01/2018-Current PHONE: [phone] Gonzalez Brown Ese Teacher/Coal Trimmer Machine Operator 07/01/2020-Current PHONE: [phone] Meet has no Care Guidelines for this patient. Care History Medical/Surgical 06/27/2019 [facility] - PATIENT HAS AN APT WITH DR VILLARREAL FOR ER FOLLOW UP ON 06/29/19. E.D. VISIT COUNT (12 MO.) 4 [facility]. TOTAL 4 NOTE: Visits indicate total known visits. ED/UCC VISIT TRACKING (12 MO.) 07/22/2020 21:05 [facility] [place] TYPE: Emergency COMPLAINT: - SHORTNESS OF BREATH 07/15/2020 16:21 [facility] [place] TYPE: Emergency COMPLAINT: - WEAKNESS, SHORTNESS OF BREATH 05/11/2020 17:43 [facility] [place] TYPE: Emergency COMPLAINT: - BLOOD IN STOOL DIAGNOSES: - Residual hemorrhoidal skin tags - Other assisted (current) drug therapy - petroleum terminal plant operator (current) use of insulin - Heart failure, unspecified - Allergy status to narcotic agent - Melena - petroleum terminal plant operator (current) use of anticoagulants - Hypertensive heart disease with heart failure - Gastro-esophageal reflux disease without esophagitis - Allergy status to other drugs, medicaments and biological substances - Unspecified atrial fibrillation 04/06/2020 19:51 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 of anticoagulants - Gastro-esophageal reflux disease without esophagitis - Unspecified atrial fibrillation - Essential (primary) hypertension INPATIENT VISIT TRACKING (12 MO.) 07/15/2020 16:22 [facility] [place] TYPE: Observation COMPLAINT: - A-FIB DIAGNOSES: - Hypertensive heart disease with heart failure - Heart failure, unspecified - Acquired absence of other specified parts of digestive tract - Allergy status to other drugs, medicaments and biological substances - Type 2 diabetes mellitus without complications - petroleum terminal plant operator (current) use of anticoagulants - Other termite helper (current) drug therapy - Unspecified osteoarthritis, unspecified site - shelter (current) use of insulin - Contact with and (suspected) exposure to other viral communicable diseases - Unspecified atrial fibrillation - Allergy status to narcotic agent - Cough - Gastro-esophageal reflux disease without esophagitis - Constipation, unspecified - Palpitations [email or web address]
--- NOTE | 2020-07-23 17:04 | EKG ---
[facility] [address] [place], [place] [address] Signed Atrial fibrillation Left axis deviation Inferior infarct (cited on or before 18-FEB-2019) Abnormal ECG When compared with ECG of 15-JUL-2020 16:31, No significant change was found Confirmed by AVRIL VOGT DO ([id number]) on 07/23/2020 5:04:27 PM Electronically Signed By: AVRIL VOGT DO 07/23/20 1704 PATIENT NAME: FRED BAJWA MARIA DEL CARMEN Electrocardiogram DATE OF : 54 PHYSICIAN: AVRIL VOGT DO REPORT #: [id number] REPORT IS CONFIDENTIAL AND NOT TO BE RELEASED WITHOUT AUTHORIZATION
== END 2020-07-23 00:04 | disposition home or self-care (01) ==
LOC: ED 21:04
DX: K21.9 Gastro-esophageal reflux disease without esophagitis (principal); R31.29 Other microscopic hematuria; I11.0 Hypertensive heart disease with heart failure; I48.91 Unspecified atrial fibrillation; I50.9 Heart failure, unspecified; E11.9 Type 2 diabetes mellitus without complications; Z88.8 Allergy status to other drugs, medicaments and biological substances; Z88.5 Allergy status to narcotic agent; Z79.899 Other long term (current) drug therapy; Z79.4 Long term (current) use of insulin; Z79.01 Long term (current) use of anticoagulants
CPT/HCPCS: 71045; 81001; 84484; 85025; 85610; 85730; 93005; 93010; 99285-25

== ENCOUNTER 2020-08-14 10:42 | Observation (INO) | payer MEDICARE, OTHER ==
[~2020-08-14] VITALS: Ht 167.6 cm; Wt 120.0 kg
--- OUTSIDE RECORDS SUMMARY | 2020-08-14 10:46 | XMS ---
PreManage Notification: FRED BAJWA Security Modeling Agency Manager Events No recent Security Events currently on file CRITERIA MET - [facility] - 2 Visits in 30 Days CARE PROVIDERS MECHE VILLARREAL [facility] 11/01/2018-Current PHONE: [phone] Lindsey Vega Chairman President And Chief Executive Officer/Assortment Planner 07/01/2020-Current PHONE: [phone] Meet has no Care Guidelines for this patient. Care History Medical/Surgical 06/27/2019 [facility] - PATIENT HAS AN APT WITH DR VILLARREAL FOR ER FOLLOW UP ON 06/29/19. E.D. VISIT COUNT (12 MO.) 5 [facility] TOTAL 5 NOTE: Visits indicate total known visits. ED/UCC VISIT TRACKING (12 MO.) 08/14/2020 10:43 [facility] [place] TYPE: Emergency COMPLAINT: - HEARTBURN, DIFFICULTY BREATHING 07/22/2020 21:05 [facility] [place] TYPE: Emergency COMPLAINT: - SHORTNESS OF BREATH DIAGNOSES: - Heart failure, unspecified - Unspecified atrial fibrillation - Gastro-esophageal reflux disease without esophagitis - Allergy status to other drugs, medicaments and biological substances - intermediate accountant (current) use of anticoagulants - Allergy status to narcotic agent - Other technician terminal and repeater (current) drug therapy - Allergy status to narcotic agent - Type 2 diabetes mellitus without complications - intermediate accountant (current) use of insulin - Allergy status to other drugs, medicaments and biological substances - Hypertensive heart disease with heart failure - Chest pain, unspecified - Other microscopic hematuria 07/15/2020 16:21 [facility] [place] TYPE: Emergency COMPLAINT: - WEAKNESS, SHORTNESS OF BREATH 05/11/2020 17:43 [facility] [place] TYPE: Emergency COMPLAINT: - BLOOD IN STOOL DIAGNOSES: - Residual hemorrhoidal skin tags - Other fpc (current) drug therapy - intermediate accountant (current) use of insulin - Heart failure, unspecified - Allergy status to narcotic agent - Melena - detention (current) use of anticoagulants - Allergy status to other drugs, medicaments and biological substances - Hypertensive heart disease with heart failure - Gastro-esophageal reflux disease without esophagitis - Allergy status to narcotic agent - Allergy status to other drugs, medicaments and biological substances - Unspecified atrial fibrillation 04/06/2020 19:51 [facility] [place] TYPE: Emergency COMPLAINT: - SOB DIAGNOSES: - Syncope and collapse - Allergy status to narcotic agent - Other fpc (current) drug therapy - Allergy status to other drugs, medicaments and biological substances - detention (current) use of insulin - Type 2 diabetes mellitus without complications - Shortness of breath - Personal history of nicotine dependence - detention (current) use of anticoagulants - Gastro-esophageal reflux disease without esophagitis - Unspecified atrial fibrillation - Essential (primary) hypertension INPATIENT VISIT TRACKING (12 MO.) 07/15/2020 16:22 [facility] [place] TYPE: Observation COMPLAINT: - A-FIB DIAGNOSES: - detention (current) use of insulin - Palpitations - Constipation, unspecified - Gastro-esophageal reflux disease without esophagitis - Cough - Allergy status to narcotic agent - Unspecified atrial fibrillation - Contact with and (suspected) exposure to other viral communicable diseases - Allergy status to narcotic agent - Allergy status to other drugs, medicaments and biological substances - Unspecified osteoarthritis, unspecified site - Other technician terminal and repeater (current) drug therapy - intermediate accountant (current) use of anticoagulants - Type 2 diabetes mellitus without complications - Allergy status to other drugs, medicaments and biological substances - Acquired absence of other specified parts of digestive tract - Heart failure, unspecified - Hypertensive heart disease with heart failure [email or web address]
[2020-08-14] MEDS ORDERED: DIGOXIN250 MCG PO (11:38)
--- NOTE | 2020-08-14 13:05 | EKG ---
[facility] [address] [place] [address] Signed Atrial fibrillation with rapid ventricular response with premature ventricular or aberrantly conducted complexes Left axis deviation Inferior infarct (cited on or before 18-FEB-2019) Abnormal ECG When compared with ECG of 22-JUL-2020 23:27, No significant change was found Confirmed by KATHY HARDIN MD ([id number]) on 08/14/2020 1:05:32 PM Electronically Signed By: KATHY HARDIN MD 08/14/20 1305 PATIENT NAME: FRED BAJWA Electrocardiogram DATE OF : 54 PHYSICIAN: KATHY HARDIN MD REPORT #: [id number] REPORT IS CONFIDENTIAL AND NOT TO BE RELEASED WITHOUT AUTHORIZATION
--- NOTE | 2020-08-14 15:16 | NUR ---
PT TO MEDR VIA STRETCHER ABLE TO SELF TRANSFER TO BED. RESTING NOW, ORIENTED TO ROOM, CALL LIGHT IN HAND.
--- NOTE | 2020-08-14 16:03 | NUR ---
pt orders salad stating he has not been able to eat for days. will have regular meal at supper time. continues to be talkative and upbeat denies discomforts
--- NOTE | 2020-08-14 16:36 | NUR ---
MED REC COMPLETE
--- NOTE | 2020-08-14 16:45 | NUR ---
Spoke with Davidson and he lives in an apartment in [place]. He has a state paid cg, Phuong Ricci 4.5 hours per day[address] He does not drive, but is aware and uses [facility] transport through the [facility]. He has a best friend who assists him whenever needed and good support from his cg. Plans on dc tomorrow.
--- NOTE | 2020-08-14 18:13 | NUR ---
PATIENT IN BED WATCHING TV. CALL LIGHT IN REACH. NO FURTHER NEEDS AT THIS TIME. VITALS AND I&O'C CHARTED.
--- NOTE | 2020-08-14 18:14 | NUR ---
PT TOLERATES ONLY A SMALL AMOUNT OF EVENING MEAL C/O REFLUX. FRESH H20 AT CHAIR SIDE. PT INCONTINENT OF URINE, UP TO TOILET UNDERGARMENT CHANGED PT RETURNS TO REST IN BED.
--- NOTE | 2020-08-14 19:34 | NUR ---
SHIFT REPORT FROM NURSE MUNGUIA. PT UP IN CHAIR CONVERSING WITH ENVIRONMENTAL SERIVCES STAFF. DENIES NEEDS AT THIS TIME. CALL LIGHT WITHIN REACH
--- NOTE | 2020-08-14 21:45 | NUR ---
ASSESSMENT COMPLETE. PT UP IN CHAIR. REPORTS STRONG ACID REFLUX AT THIS TIME. SCHEDULED PROTONIX GIVEN. PT STATES THAT HE "MAY JUST STAY UP ALL NIGHT". PT CANNOT SAY WHY HE INTENDS TO DO THIS. TELE READS 110-133BPM. VS OTHERWISE STABLE. CBG 245 REQUIRING 5UNITS SS INSULIN. WATER REFILLED. NO FURTHER NEEDS AT THIS TIME. CALL LIGHT WITHIN REACH
--- NOTE | 2020-08-14 22:33 | NUR ---
CHECKED ON PT THE TELE WAS READING HIGH 156, NOT SUSTAINED. PT IN BED, HAD GOT SELF FROM THE RECLINER CHAIR TO HIS BED WITHOUT CALLING. ASKED ABOUT CHEST PAIN, HE SAID "IT THAT FEELING I HAD WHEN BEFORE I CAME IN" HE RUBBED HIS UPPER STOMACH, SAID NO CHEST PAIN, BUT UNCOMFORTABLE. RN IN ROOM, HIS HEART RATE LOWERED TO 100-120. WAGE AND SALARY ADMINISTRATOR IN ROOM WITH FRESH WATER FOR PT. PT EDUCATED ABOUT USING CALL LIGHT TO HAVE STAFF IN ROOM DURING TRANSFERS.
--- NOTE | 2020-08-14 23:21 | NUR ---
IN ROOM; TELE LEAD WAS OFF. PROBLEM RESOLVED. PT LAYING IN BED, HAD AMBULATED WITHOUT CALLING NURSING STAFF. HR 110-133 CURRENTLY. PT REMAINS IN AFIB RHYTHYM. CALL LIGHT WITHIN REACH
--- NOTE | 2020-08-15 00:33 | NUR ---
CHECKED ON PT. PT APPEARS TO BE SLEEPING. PT LAYING LEFT LATERAL, EVEN UNLABORED BREATHING, EYES CLOSED. NO APPARENT SIGNS OF DISTRESS. TELE CONTINUES TO FLUCUATE BETWEEN 110-130BPM.
--- NOTE | 2020-08-15 02:33 | NUR ---
IN ROOM FOR 0200 VS. CHECKED PT DEPENDS FOR INCONTINENCE. PT IS FULLY WET, CHUX WET AND GOWN WET. PT DID NOT NOTICE HOW WET HE WAS. BEDDDING, DEPENDS AND GOWN REPLACED. PT RETURNED TO BED. CALL LIGHT WITHIN REACH
--- NOTE | 2020-08-15 07:31 | NUR ---
THIS RN RECIEVED REPORT FROM LEONIDES HEDRICK. PT IN BED AND APPEARS TO BE RESTING AT THIS TIME WIHT RESPIRATIONS NOTED.
--- NOTE | 2020-08-15 08:23 | NUR ---
THIS RN IN PTS ROOM TO DO PTS MORNING ASSESSMENT. PT SITTING IN BED. PT STATES THAT HE IS FEELING BETTER, PT REPORT MINIMAL DISCOMFORT FROM GERD. THIS RN PROVIDED PT WITH VERBAL EDUCATION ABOUT HOW TO HELP HIS SMPTOMS OF GERD. PT RECEPTIVE TO TEACHING.
--- NOTE | 2020-08-15 08:43 | NUR ---
ANSWERED CALL LIGHT, PATIENT LYING BACK IN BED EATING BREAKFAST. PATIENT REPORTS A BURNING FEELING IN HIS CHEST AFTER EATING 3-4 BITES OF EGG SANDWICH. THIS TRIM CREW SUPERVISOR ASSISTED PATIENT TO SIDE OF BED TO FINISH EATING, PROVIDED APPLESAUCE AND FRESH WATER. PATIENT SATISFIED AND TERLLING JOKES. ADDIE LIGHT IN REACH.
[2020-08-15] MEDS ORDERED: PANTOPRAZOLE SO40 MG PO (09:30)
--- NOTE | 2020-08-15 09:50 | NUR ---
1PA WITH FWW TO BR. PATIENT WILL CALL WHEN READY.
--- NOTE | 2020-08-15 10:04 | NUR ---
THIS RN ATTEMPTED TO CALL PTS CAREGIVER. VOICEMAIL IS NOT SET UP. THIS RN WILL TRY LATER
--- NOTE | 2020-08-15 10:10 | NUR ---
THIS RN DISCUSSED WITH MIKE, PTS CAREGIVER ABOUT COMING TO GET PT. SHE STATES THAT SHE CAN BE HERE IN ABOUT AN HOUR.
--- NOTE | 2020-08-15 13:37 | NUR ---
PT ALERT, ORIENTED AND SEEMED PLEASED I STOPPED BY. PT NEEDED TO VISIT ABOUT END OF LIFE PLANNING. GAVE BOOKLET TO ASSIST, SAID HIS NIECE IS IN CHARGE OF HIS ESTATE. PT FEELS HIS TIME IS SHORT, AND HAS HAD STRUGGLES LATELY. PASSED ON ENCOURAGEMENT, PT REQUESTED PRAYER AND REQUESTED TO SEE HIS ANVILSMITH. I WAS ABLE IN CONTACTING AND HE CAME AND CARED FOR PT. WILL FOLLOW NEEDED
== END 2020-08-15 11:45 | disposition home or self-care (01) ==
LOC: ED 10:42 → MS 10:44
PROVIDERS: ADMIT Internal Medicine; ATTEND Internal Medicine
DX: I48.20 Chronic atrial fibrillation, unspecified (principal); E11.40 Type 2 diabetes mellitus with diabetic neuropathy, unspecified; F32.9 Major depressive disorder, single episode, unspecified; I10 Essential (primary) hypertension; K21.00 Gastro-esophageal reflux disease with esophagitis, without bleeding; I49.3 Ventricular premature depolarization; Z87.728 Personal history of other specified (corrected) congenital malformations of nervous system and sense organs; Z88.8 Allergy status to other drugs, medicaments and biological substances; Z88.5 Allergy status to narcotic agent; Z79.01 Long term (current) use of anticoagulants; Z79.4 Long term (current) use of insulin; Z86.79 Personal history of other diseases of the circulatory system
CPT/HCPCS: 36415; 71045; 80048; 80053; 80162; 83735; 84484; 85025; 85610; 93005; 93010; 99285-25; C9803; G0378; J1815; U0003

== ENCOUNTER 2020-08-24 11:08 | Inpatient (IN) | payer MEDICARE, OTHER ==
[~2020-08-24] VITALS: Ht 167.6 cm; Wt 113.4 kg
[~2020-08-24 11:08] MED LIST changes: +WARFARIN SODIUM6 MG PO
[2020-08-24] MEDS ORDERED: NEURONTIN300 MG PO (11:15)
[2020-08-24] MEDS ORDERED: PANTOPRAZOLE SO40 MG PO (11:17)
--- OUTSIDE RECORDS SUMMARY | 2020-08-24 11:18 | XMS ---
PreManage Notification: FRED BAJWA Security Assistant Credit Manager Events No recent Security Events currently on file CRITERIA MET - 6 ED Visits in 6 Months - [facility] - 2 Visits in 30 Days CARE PROVIDERS PHIL [facility] 11/01/2018-Current PHONE: [phone] Lindsey Vega Property Staff Accountant/Punch Box Tender 07/01/2020-Current PHONE: [phone] Meet has no Care Guidelines for this patient. Care History Medical/Surgical 06/27/2019 [facility] - PATIENT HAS AN APT WITH DR VILLARREAL FOR ER FOLLOW UP ON 06/29/19. E.D. VISIT COUNT (12 MO.) 6 [facility]. TOTAL 6 NOTE: Visits indicate total known visits. 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 - Allergy status to narcotic agent - Other retirement (current) drug therapy - Allergy status to narcotic agent - Type 2 diabetes mellitus without complications - group home (current) use of insulin - Allergy status to other drugs, medicaments and biological substances - Hypertensive heart disease with heart failure - Chest pain, unspecified - Other microscopic hematuria 07/15/2020 16:21 [facility] [place] TYPE: Emergency COMPLAINT: - WEAKNESS, SHORTNESS OF BREATH 05/11/2020 17:43 [facility] [place] TYPE: Emergency COMPLAINT: - BLOOD IN STOOL DIAGNOSES: - Residual hemorrhoidal skin tags - Other intermediate card tender (current) drug therapy - group home (current) use of insulin - Heart failure, unspecified - Allergy status to narcotic agent - Melena - 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 - Allergy status [...] Allergy status to narcotic agent - Other retirement (current) drug therapy - Allergy status to other drugs, medicaments and biological substances - group home (current) use of insulin - Type 2 diabetes mellitus without complications - Shortness of breath - Personal history of nicotine dependence - group home (current) use of anticoagulants - Gastro-esophageal reflux disease without esophagitis - Unspecified atrial fibrillation - Essential (primary) hypertension INPATIENT VISIT TRACKING (12 MO.) 08/14/2020 10:44 [facility] [place] TYPE: Observation COMPLAINT: - AFIB/RVR DIAGNOSES: - Personal history of other diseases of the circulatory system - 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 - Chronic atrial fibrillation, unspecified - Major depressive disorder, single episode, unspecified - group home (current) use of insulin - 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 - Hypertensive heart disease with heart failure - Allergy status to other drugs, medicaments and biological substances - Essential (primary) hypertension - Ventricular premature depolarization - Type 2 diabetes mellitus with diabetic neuropathy, unspecified - Allergy status to narcotic agent - Gastro-esophageal reflux disease with esophagitis, without bleeding 07/15/2020 16:22 [facility] [place] TYPE: Observation COMPLAINT: - A-FIB DIAGNOSES: - group home (current) use of insulin - Palpitations - Constipation, unspecified - Gastro-esophageal reflux disease without esophagitis - Cough - Allergy status to narcotic agent - Unspecified atrial fibrillation - Contact with and (suspected) exposure to other viral communicable diseases - Allergy status to narcotic agent - Allergy status to other drugs, medicaments and biological substances - Unspecified osteoarthritis, unspecified site - Other retirement (current) drug therapy - group home (current) use of anticoagulants - Type 2 diabetes mellitus without complications - Allergy status to other drugs, medicaments and biological substances - Acquired absence of other specified parts of digestive tract - Heart failure, unspecified - Hypertensive heart disease with heart failure [email or web address]
--- NOTE | 2020-08-24 15:10 | NUR ---
MIKE SAMPLE ONBTAINED SENT FOR RAPID '
--- NOTE | 2020-08-24 15:21 | NUR ---
MED REC COMPLETE
--- NOTE | 2020-08-24 15:54 | EKG ---
[facility] [address] [place], [place] [address] Signed Atrial fibrillation with rapid ventricular response Left axis deviation Inferior infarct (cited on or before 18-FEB-2019) Abnormal ECG When compared with ECG of 14-AUG-2020 10:58, No significant change was found Confirmed by AVRIL VOGT DO ([id number]) on 08/24/2020 3:54:34 PM Electronically Signed By: AVRIL VOGT DO 08/24/20 1554 PATIENT NAME: FRED BAJWA Electrocardiogram DATE OF : 54 PHYSICIAN: AVRIL VOGT DO REPORT #: [id number] REPORT IS CONFIDENTIAL AND NOT TO BE RELEASED WITHOUT AUTHORIZATION
--- NOTE | 2020-08-24 16:00 | NUR ---
PT TO CCU FROM ER, TRANSPORTED VIA GURNEY. PT IS ALERT AND ORIENTED X4, VERY TALKATIVE. PT REQUIRES TWO PERSON ASSIST FROM GURNEY TO BED, LIMITED MOBILITY AND REPORTS WEAKNESS. IV SITE IN LEFT AC IS INTACT, DILTIAZEM INFUSING EASILY, PT DENIES PAIN AT THE SITE. CHANGED PT ATTENDS HE IS INCONTINENT OF URINE. GROIN FOLDS AND NEHEMIAH AREA REDENED, PT REPORTS IT IS SORE WELL. PT IS COOPERATIVE AND POLITE. PT DENIES NAUSEA AND SOB, REPORTS "I HAVE A SLIGHT HEADACHE".
--- NOTE | 2020-08-24 16:39 | NUR ---
PT GIVEN 650 MG PO TYLENOL FOR 02/02 HEADACHE. PT DINNER ORDERED. PT ABLE TO SWALLOW PILLS EASILY, HOWEVER STATES "WHEN I TAKE A BIG DRINK OF ICE WATER IT MAKES ME A LITTLE NAUSEOUS". SUGGESTED THAT PT TAKE SMALLER SIPS OF WATER. PT IS AGREABLE TO THIS.
--- NOTE | 2020-08-24 17:37 | NUR ---
DINNER BROUGHT TO PT. PT ADJUSTED UP HIGHER IN BED TO EAT.
--- NOTE | 2020-08-24 17:55 | NUR ---
PT CALLS, STATES "I JUST VOMITED". INTO PT ROOM PT HAS SCANT CHEWED FOOD ON FRONT OF GOWN, AND SOME IN A CUP. PT REPORTS "MY FOOD GOT STUCK, SOMETIMES THAT HAPPENS TO ME, AND THEN I THROW UP". PT GIVEN 4 MG IV ZOFRAN AND 2 TABS OF TUMMS. PT TALKING AND VISITING WITH THIS RN SITTING UP IN BED. HR IS 98.
--- NOTE | 2020-08-24 20:49 | NUR ---
SHIFT REPORT RECEIVED FROM FLORIDALMA ROWE. ASSESSMENT COMPLETED. PT IS ALERT/ORIENTED, REPORTS 2/10 HEADACHE PAIN, PRN TYLENOL GIVEN. LUNGS CLEAR, DIM IN BASES, RA, REPORTS OCCASIONAL SOB. HR IRREGULAR, CARDIZEM DRIP TITRATED TO 5MG/HR, HR 80-90'S. BOWEL TONES ACTIVE, DENIES NAUSEA AT THIS TIME. IV SITES INTACT AND PATENT. PT INCONITNENT OF URINE, PERICARE AND NEW ATTENDS PROVIDED, DESITIN AND MIACTIN POWDER APPLIED TO GROIN AND UNDER PANNUS. RED BLANCHABLE AREA NOTED TO COCCYX. 2+EDEMA NOTED IN BILATERAL FEET. PT SWALLOWED PILLS WITHOUT ISSUE, FRESH ICE WATER PROVIDED. PT DENIES FURTHER REQUESTS, LIGHTS DIMMED, CALL LIGHT AND BELONGINGS WITHIN REACH.
--- NOTE | 2020-08-24 22:04 | NUR ---
IN TO TITRATE CARDIZEM DRIP TO 7.5MG/HR FOR HR 100-115. PT INCONTINENT OF URINE, PERICARE AND NEW ATTENDS PROVIDED. PT REPOSITIONING HIMSELF ONTO HIS LEFT SIDE FOR SLEEP, NO FURTHER REQUESTS AT THIS TIME.
--- NOTE | 2020-08-24 23:30 | NUR ---
TITRATED CARDIZEM DRIP TO 10MG/HR FOR HR:100-115. PT CURRENTLY ASLEEP, NO APPARENT DISTRESS. RESPIRATOINS EVEN AND UNLABORED.
--- NOTE | 2020-08-25 00:20 | NUR ---
PT CONTINUES TO SLEEP AT THIS TIME, NO APPARENT DISTRESS. CARDIZEM CONTINUES TO INFUSE AT 10 MG/HR, HR:90'S. RESPIRATIONS APPEAR EVEN AND UNLABORED, RR:21, SPO2:90% ON RA. WILL ALLOW FOR REST AND CONTINUE TO MONITOR.
--- NOTE | 2020-08-25 02:04 | NUR ---
PT AWOKEN FOR SCHEDULED MEDS, ORAL TEMP 99.4 AT THIS TIME, PRN TYLENOL ALSO GIVEN. PT REPORTS HIS ATTENDS FEEL DRY AT THIS TIME. PT SWALLOWED PILLS WITHOUT ISSUE. WHILE ASLEEP PT DESATURATES TO 85-88%, 2L O2 VIA NC PLACED ON PT AT THIS TIME. CARDIZEM CONTINUES AT 10 MG/HR.
--- NOTE | 2020-08-25 03:24 | NUR ---
PT CALLED BECAUSE HE WAS FEELING HOT. REMOVED SOME BLANKETS AND PROVIDED HIM WITH COOL CLOTH FOR HIS FOREHEAD. ATTENDS CHANGED AND BARRIER CREAM APPLIED TO GROIN. ASSESSMENT COMPLETED, LUNGS REMAIN CLEAR, 2L O2 IN PLACE. HR IRREGULAR, RATE IN 90'S, CARDIZEM CONTINUES AT 10MG/HR, NEW BAG HUNG. IV SITES INTACT AND PATENT. NO OTHER CHANGES FROM PREVIOUS ASSESSMENT. PT DENIES NEEDS AT THIS TIME, CALL LIGHT WITHIN REACH.
--- NOTE | 2020-08-25 04:57 | NUR ---
BLOOD DRAWN FROM LEFT AC IV AND SENT FOR MORNING LABS. PT DENIES NEEDS AT THIS TIME. CARDIZEM TITRATED TO 7.5 MG/HR FOR HR IN 80'S.
--- NOTE | 2020-08-25 06:11 | NUR ---
TITRATED CARDIZEM DRIP TO 5 MG/HR FOR HR:70-80'S. BOOTED PT UP IN BED.
--- NOTE | 2020-08-25 08:04 | NUR ---
PT SLEEPING SOUNDLY AT THIS TIME, ALL VITAL SIGNS ARE WNL. WILL DEFER ASSESSMENT UNTIL 0900 TO ENCOURAGE REST. WILL CONTINUE TO MONITOR.
--- NOTE | 2020-08-25 09:04 | NUR ---
DILTAIZEM DRIP OFF AT THIS TIME. PT HR 80'S-90'S. PT DENIES ANY SOB, NAUSEA, OR CHEST PAIN.
--- NOTE | 2020-08-25 09:10 | NUR ---
BOTH IV SITES ARE INTACT, FLUSH EASILY, NO REDNESS OR SWELLING NOTED, PT DENIES PAIN AT EITHER SITE.
--- NOTE | 2020-08-25 09:36 | NUR ---
PT ATTENDS CHANGED FOR EXTRA LARGE AMOUNT OF INCONTINENT URINE. SKIN APPEARS IMPROVED FROM ADMIT TIME YESTERDAY (08/24/20) AT ABOUT 1600, LESS RED AND LESS PAINFUL TO PT. PT ABLE TO ASSIST IN ROLLING FROM SIDE TO SIDE IN THE BED. PT REPORTS SOME MILD GENERALIZED DISCOMFORT AT /10, 650 MG PO TYLENOL GIVEN. PROPHYLACTIC IV ZOFRAN GIVEN WITH BREAKFAST. PT IS ALERT AND ORIENTED X4, COOPERATIVE AND POLITE. PT STATES "I THINK I WOULD LIKE TO SLEEP SOME MORE AFTER BREAKFAST".
--- NOTE | 2020-08-25 10:16 | NUR ---
pt sleeping soundly at this time, diltiazem drip remains off HR is 80. pt snoring slightly, 1L [address] for desat with sleep, O2 sat is 90%.
--- NOTE | 2020-08-25 11:10 | NUR ---
pt given 400 mg po motrin for report of 7/10 chronic rt shoulder, neck, and back pain. pt also repositioned up in bed for comfort. pt able to order lunch at this time as well.
--- NOTE | 2020-08-25 11:43 | NUR ---
PT'S NEXT OF KIN, KANDI PEARSON, CALLED FOR AN UPDATE ON THE PT. SHE IS HIS SISTER. FULL UPDATE GIVEN, ALL QUESTIONS ANSWERED. HER CONTACT INFORMATION IS ON THE PT'S FACESHEET.
--- NOTE | 2020-08-25 12:35 | NUR ---
PT LUNCH DELIVERED. REPOSITIONED PT UP IN BED HIGH FOR MEAL TIME. BOTH IV SITES ARE INTACT, NO REDNESS OR SWELLING NOTED, FLUSHES INFUSE EASILY. PT DENIES PAIN, NAUSEA, AND SOB AT THIS TIME. REMAINS ALERT AND ORIENTED ALL SHIFT, IS PLEASANT. ALL VITALS ARE WNL.
--- NOTE | 2020-08-25 12:55 | NUR ---
C/O NAUSEA, HAD SMALL CLEAR EMESIS. DR. VOGT IS HERE AND AWARE. PHENERGAN 12.5 MG IV ORDERED AND GIVEN. PATIENT WISHES TO KEEP PUDDING AND SHERBERT AT BEDSIDE. HOB ELEVATED.
--- NOTE | 2020-08-25 14:15 | NUR ---
PT ALERT AND ORIENTED X4, VERY TALKATIVE. PT DENIES NAUSEA, PAIN, AND SOB AT THIS TIME. PT ABLE TO SWALLOW 5 LARGE PILLS AT ONCE WITH NO DIFFICULTY. PT ATTENDS CHANGED, LARGE INCONTINENT VOID. PT ABLE TO ASSIST WITH ROLLING BACK AND FORTH IN BED.
--- NOTE | 2020-08-25 16:32 | NUR ---
PT UP AND OUT OF BED WITH ONE PERSON ASSIST WITH WALKER TO BEDSIDE COMMODE. PT NOT ABLE TO HAVE A BM, BUT ABLE TO URINATE. PT GIVEN FULL BED BATH WHILE SITTING UP ON THE COMMODE, INCLUDING SHAMPOO OF HAIR. PT THEN ABLE TO WALK A FEW STEPS TO THE CHAIR. STATES "IT FEELS GOOD TO GET OUT OF THAT BED". ALL LINENS CHANGED.
--- NOTE | 2020-08-25 18:36 | NUR ---
pt c/o chills, and unable to get warm. temp is 97.7 oral. pt also reports nausea, refuses dinner at this time. 12.5 mg iv phenergan given. pt already has multiple warm blankets on and wrapped around him. 650 mg po tylenol given for generalized discomfort. all vitals are wnl. pt becomes drowsy, 2L O2 in place. called to update on pt status, no new orders, will continue to monitor.
--- NOTE | 2020-08-25 20:57 | NUR ---
PT IN CHAIR AWAKE, ALERT, BUT ONLY ORIENTED TO SELF, EVENT, AND AT TIMES LOCATION. PT STATES HE IS IN THE CORRECT [place]OWN AND IN THE HOSPITAL BUT NAMES THE WRONG FACILITY. PT DENIES HAVING ANY PAIN OR SHORTNESS OF BREATH. MEDICATIONS ADMINISTERED AND 3 UNITS INSULIN GIVEN PER SLIDING SCALE. PT HAD AN EPISODE OF URINARY INCONTINENCE WHILE GETTING UP, PERICARE WAS DONE AFTERWARDS. PT HELPED BY MYSELF AND ANOTHER RN INTO BED WITH WALKER. PT HAD A DIFFICULT TIME TURNING INTO BED WITH WALKER AND ASSISTANCE. PT NOW LAYING IN BED AWAKE AND RESPONDING BUT CARRIES OFF RAMBLING AND REPEATING HIMSELF ABOUT HIS A-FIB. WHEN ASKED, PT REPORTS NO FURTHER NEEDS AND NO PAIN. THIS RN RETURNED TO ROOM TO PUT PT ON 2L O2 VIA NC DUE TO SATURATIONS IN THE 86-88 RANGE. PT NOW AT 91% ON 2L O2 NC. CALL LIGHT WITHIN REACH, BED IN LOWEST POSITION, WILL CONTINUE PLAN OF CARE.
--- NOTE | 2020-08-25 21:40 | NUR ---
THIS RN IN TO PT'S ROOM DUE TO SPO2 IN THE MID 80'S. PT LAYING IN BED SLEEPING AND AWOKE TO ME ENTERING THE ROOM. PT. NASAL CANNULA HAD SLIPPED OUT OF HIS NOSE. NC PLACED BACK IN NOSE AND LEFT ON 2L, SPO2 BACK UP TO 92%. PT REPORTS NO FURTHER NEEDS WHEN ASKED, WILL CONTINUE PLAN OF CARE.
--- NOTE | 2020-08-25 22:19 | NUR ---
THIS RN IN TO ADJUST PT'S BLOOD PRESSURE CUFF DUE TO A HIGH READING. PT LAYING IN BED SLEEPING ON 2L O2 NC. PT AWOKE WHILE READJUSTING CUFF AND WAS AWARE HE WAS AT THE HOSPITAL THIS TIME WHEN ASKED. PT'S BLOOD PRESSURE WAS RETAKEN (SEE CHART). PT REPORTS NO FURTHER NEEDS WHEN ASKED. PT STATED HE WAS TIRED AND WAS GOING BACK TO SLEEP. WILL CONTINUE PLAN OF CARE.
--- NOTE | 2020-08-25 23:15 | NUR ---
PT SLEEPING AT THIS TIME. RESPIRATIONS NOTED AND ARE UNLABORED BUT TACHYPNIC AT A RR OF 28. PT ON 2L O2 NC, SPO2 92%. PT IN NO APPARENT DISTRESS AND WAS LEFT UNDISTURBED. WILL CONTINUE PLAN OF CARE.
--- NOTE | 2020-08-26 01:05 | NUR ---
THIS RN IN TO ASSESS PT. PT SLEEPING BUT AWOKE TO VOICE. PT WAS DROWSY WHEN AWAKE BUT WAS ORIENTED TO SELF, LOCATION, AND EVENT. PT REPORTS NO PAIN BUT HAD AN ORAL TEMP OF 102.6. DR VOGT NOTIFIED BY PHONE. ORDERES WERE GIVEN TO DRAW BLOOD CULTURES IN MORNING. FLORIDALMA KINGSLEY IN ROOM TO ADMINISTER PO TYLENOL FOR FEVER. WILL CONTINUE PLAN OF CARE.
--- NOTE | 2020-08-26 04:58 | NUR ---
THIS RN IN TO PT'S ROOM TO PLACE NC BACK ON PT. PT IN BED SLEEPING. PT AWOKE BRIEFLY WHILE PLACING NC BACK ON, SPO2 BACK UP TO 93%. PT REPORTS NO FURTHER NEEDS WHEN ASKED, WILL CONTINUE PLAN OF CARE.
--- NOTE | 2020-08-26 06:50 | NUR ---
PT LAYING IN BED SLEEPING. THIS RN IN TO DRAW LABS. PT TOLERATED LAB DRAWS WELL. PT WAS DROWSY/SLEEPY DURING THIS TIME AND WOULD NOD OFF TO SLEEP. PT WAS ABLE TO RESPOND APPROPRIATELY WHEN ASKED QUESTIONS. PT REPORTS NO FURTHER NEEDS WHEN ASKED, PT LEFT ON 2L O2 NC. PT REPORTS NO PAIN WHEN ASKED. WILL CONTINUE PLAN OF CARE. CALL LIGHT WITHIN REACH, BED IN LOWEST POSITION.
--- NOTE | 2020-08-26 07:15 | NUR ---
Report received, orders acknowledged. Patient sleeping in bed, respirations even and unlabored. Call light within reach.
--- NOTE | 2020-08-26 08:30 | NUR ---
Patient sleeping in bed, 2LNC in place with an SpO2 of 99%. Patient rouses easily to voice, oriented to self, location, and event. Vital signs taken, assessment complete. AM medications given. Patient up to chair with FWW and 1PA, steady on feet but weak. Breakfast delivered. IV abx infusing. Patient clammy with sweat, patient reports "I sweat a lot last night." Shower cap provided, warm wash clothes for face and body. New gown on patient, new linens on bed. Patient denies pain or nausea. Endorses SOB with activity. Patient now sitting up in chair watching tv, denies further needs. Call light within reach.
--- NOTE | 2020-08-26 10:30 | NUR ---
Dr. Mccurdy in room to assess patient and discuss POC
--- NOTE | 2020-08-26 11:00 | NUR ---
Patient returns to bed with FWW and 1PA. 2LNC in place, HR in the 80's. Tele [address] Patient denies needs, call light within reach.
--- NOTE | 2020-08-26 11:44 | NUR ---
Physical therapy in room to work with patient
--- NOTE | 2020-08-26 13:17 | NUR ---
Patient sitting up in chair watching tv and eating meal. LR infusing at 75 mls/hr, call light within reach.
--- NOTE | 2020-08-26 14:26 | NUR ---
Patient sitting up in chair watching tv. LR infusing at 75 mls/hr into LAC. Patient assessment complete. RA trial initiated, patient SpO2 remains between 94-97% on room air. Patient denies pain or nausea, does endorse SOB. Breathing appears even and unlabored. Patient denies further needs, call light within reach.
--- NOTE | 2020-08-26 15:43 | NUR ---
Patient up to BSC with FWW and 1PA. Patient incontinent of urine. Large, hard BM formed. Patient returned to bed. Amparo care done, new attends in place. New gown provided. Vital signs taken, assessment complete. Patient denies pain or nausea. Warm blankets provided, patient denies further needs. Call light within reach.
--- NOTE | 2020-08-26 16:15 | NUR ---
Patient reports headache, pain of 4/10. PRN tylenol given. PM medications given (see MAR). Patient denies further needs, call light within reach.
--- NOTE | 2020-08-26 17:30 | NUR ---
New IV site placed. Patient up to chair for dinner. Uses FWW and 1PA, patient steady on feet. Patient reports headache is much improved with tylenol. Denies further needs, call light within reach.
--- NOTE | 2020-08-26 21:00 | NUR ---
THIS RN IN TO ASSESS PT. PT SITTING IN BEDSIDE CHAIR WATCHING TV. PT STATED THAT HE WANTED TO MOVE INTO BED. WHEN STANDING UP PERICARE WAS DONE AND ATTENDS CHANGED SINCE PT HAD AN EPISODE OF URINARY INCONTINENCE. PT WAS ABLE TO USE WALKER WITH MINIMAL ASSISTANCE TO GET INTO THE BED. PT WAS THEN ASSISTED IN REPOSITIONING HIMSELF UP ON THE BED. PT MEDICATIONS ADMINISTERED, 1 UNIT INSULIN GIVEN PER SS. PT IS ALERT AND ORIENTED AND REPORTS NO PAIN OR SOB. PT PROVIDED WITH A SNACK AND WATER HE REQUESTED. BEFORE LEAVING PT HAD ANOTHER EPISODE OF URINARY INCONTINENCE. PERICARE DONE. PT REPORTS NO FURTHER NEEDS WHEN ASKED, CALL LIGHT WITHIN REACH, BED IN LOWEST POSITION. WILL CONTINUE PLAN OF CARE.
--- NOTE | 2020-08-26 22:56 | NUR ---
PT LAYING IN BED SLEEPING. RESPIRATIONS NOTED. PT IS IN NO APPARENT DISTRESS AND WAS LEFT UNDISTURBED, WILL CONTINUE PLAN OF CARE.
--- NOTE | 2020-08-26 23:25 | NUR ---
RESPONDED TO PT CALL LIGHT. PT LAYING IN BED AWAKE. PT STATED HE NEEDED ASSISTANCE TO LAY ON HIS SIDE AND GO TO SLEEP. PT WAS INCONTINENT OF URINE WHEN CHECKED, PERICARE DONE AND NEW ATTENDS PLACED. PT DENIES PAIN AT THIS TIME AND SOB. PT ASSISTED ONTO L SIDE TO SLEEP. PT REPORTS NO FURTHER NEEDS AT THIS TIME. CALL LIGHT WITHIN REACH, BED IN LOWEST POSITION, WILL CONTINUE PLAN OF CARE.
--- NOTE | 2020-08-26 23:41 | NUR ---
THIS RN IN TO ROOM TO PLACE PT ON 2L O2 NC. PT WAS SLEEPING ON SIDE. SPO2 WAS IN THE UPPER 80'S. PT PLACED ON 2L O2 NC, SPO2 INCREASED TO 94%. PT NOW SLEEPING AND MAINTAINING SATURATIONS ABOVE 90%. PT REPORTS NO FURTHER NEEDS, WILL CONTINUE PLAN OF CARE.
--- NOTE | 2020-08-27 00:25 | NUR ---
THIS RN IN TO ROOM TO PLACE NASAL CANNULA BACK ON PT. PT HAD TAKEN IT OFF IN HIS SLEEP. PT AWOKE UPON ENTERING THE ROOM, SPO2 IN THE UPPER 80'S. SPO2 UP TO 93% AFTER PLACING PT BACK ON 2L O2 NC. PT REPORTS NO FURTHER NEEDS WHEN ASKED, WILL CONTINUE PLAN OF CARE. CALL LIGHT WITHIN REACH, BED IN LOWEST POSITION.
--- NOTE | 2020-08-27 01:58 | NUR ---
RESPONDED TO PT CALL LIGHT. PT SITTING AT BS AND WAS ABLE TO VOID. PT HELPED BACK ONTO BEDSIDE CHAIR WITH THE USE OF A FWW. PT ABLE TO SHUFFLE WALK OVER TO BS AND TURN AROUND WITHOUT ASSISTANCE. PT REPORTS NO FURTHER NEEDS WHEN ASKED, WILL CONTINUE PLAN OF CARE. PT ON 2L O2 NC TO MAINTAIN SATURATIONS. CALL LIGHT ON PT WITHIN REACH, PT WATCHING TV.
--- NOTE | 2020-08-27 02:29 | NUR ---
RESPONDED TO PT CALL LIGHT. PT NEEDED TO USE THE BSC TO VOID. PT ABLE TO GET UP OUT OF BED WITH ASSISTANCE. PT ABLE TO TRANSFER WITH HELP TO BSC AND BACK TO BED. PT STILL UNSTEADY ON FEET, HR UP TO 120'S WHILE TRANSFERRING. PT STATES SHE STILL FEELS WEAK COMPARED TO HER BASELINE. ONCE BACK IN BED AND REPOSITIONED PT STATED SHE WAS HAVING 7/10 ABDOMINAL PAIN. PT GIVEN PRN PAIN MEDICATION (SEE MAR). PT REPORTS NO FURTHER NEEDS WHEN ASKED AND STATED SHE WOULD TRY TO SLEEP UNTIL MORNING. PT ON 2L O2 NC, IVF INFUSING ORDERED. WILL CONTINUE PLAN OF CARE.
--- NOTE | 2020-08-27 03:13 | NUR ---
RESPONDED TO PT CALL LIGHT. PT SITTING IN BEDSIDE CHAIR WATCHING TV. PT STATED THAT HE WANTED TO GET BACK INTO BED IS HE WAS FEELING UNCOMFORTABLE/LIGHT HEADED. VITALS TAKEN AND WNL ASIDE FROM RR OF 22, SPO2 IN 90'S WITH 2L O2 NC. PT INCONTINENT OF URINE, ATTENDS CHANGED, PERICARE DONE. THEN PT USED WALKER TO SHUFFLE WALK TO BED. PT NEEDED MINIMAL ASSISTANCE. AND WAS HELPED ONTO A SIDE LAYING POSITION TO SLEEP. PT STATED HE HAD SOME GENERAL DISCOMFORT AND REQUESTED PRN TYLENOL. PRN TYLENOL PROVIDED. PT ASSESSED DURING THIS TIME. PT REPORTS NO FURTHER NEEDS WHEN ASKED. WILL CONTINUE PLAN OF CARE. CALL LIGHT IN REACH, BED IN LOWEST POSITION, 2L O2 NC ON PT.
--- NOTE | 2020-08-27 06:05 | NUR ---
THIS RN IN TO DRAW LABS. PT LAYING IN BED SLEEPING ON SIDE ON ROOM AIR, SPO2 IN THE LOW 90'S. PT ALERT AND ORIENTED AND DENIES PAIN OR SOB. LABS DRAWN ON PT. PT INCONTINENT OF URINE, PERICARE DONE AND ATTENDS CHANGED. PT THEN ASSISTED IN REPOSITIONING SELF ON THE BED. PT REPORTS NO FURTHER NEEDS WHEN ASKED AND STATED HE WOULD GO BACK TO SLEEP. CALL LIGHT WITHIN REACH, BED IN LOWEST POSITION. WILL CONTINUE PLAN OF CARE.
--- NOTE | 2020-08-27 07:15 | NUR ---
Report received, orders acknowledged. Patient sleeping in bed on left side, respirations even and unlabored. 2LNC in place, SpO2 in the mid-90's. Call light within reach.
--- NOTE | 2020-08-27 08:00 | NUR ---
Patient sleeping in bed, 2LNC in place. Rouses easily to voice. Vital signs taken, assessment complete. Patient incontinent of urine, mariza-care done. New attends in place. New linens placed on bed. Patient up to chair with FWW and 1 person SBA. Patient steady on feet. Warm wash cloth provided for patient to wash face. Warm blankets provided. AM medications given. BG of 153, 1 unit of insulin lispro given. Breakfast delivered, patient eating meal. Patient able to tolerate swallowing food without coughing or choking. IV abx and IV potassium infusing. Patient denies pain or nausea, endorses SOB with activity. No further needs at this time, call light within reach.
--- NOTE | 2020-08-27 09:00 | NUR ---
Patient requests to return to bed to rest, which is accommodated. Patient returns to bed with FWW and 1P SBA. Patient reports stinging in IV site with IV potassium infusing. Medication diluted with fluid and rate decreased to 50 mls/hr. Patient reports relief from stinging sensation. Patient denies further needs, call light wihtin reach.
--- NOTE | 2020-08-27 09:32 | NUR ---
v/s and I&Os done and recorded. E BUSINESS CONSULTANT assisted RN in cleaning pt. changing brief. Bed linen changed. Face hands, and mariza are washed. Pt. assisted up to chair. Breakfast given. Fresh water. No other needs at this time. call light with in reach
--- NOTE | 2020-08-27 10:45 | NUR ---
Patient up to chair with FWW and 1PA. Patient incontinent of urine, new attends put in place. Patient states "I'm just feeling down today. I'm ready to go home." Therapeutic communication provided. Patient now sitting in chair watching tv. Warm blanket provided, denies further needs. Call light within reach.
--- NOTE | 2020-08-27 11:08 | NUR ---
Speech therapy in room assessing patient with swallow study
--- NOTE | 2020-08-27 12:14 | NUR ---
Dr. Newman in room to assess patient and discuss POC
--- NOTE | 2020-08-27 12:50 | NUR ---
Speech therapy finished working with patient. Lunch ordered. Patient continues sitting up in chair watching tv. Denies needs, call light within reach.
--- NOTE | 2020-08-27 13:29 | NUR ---
FLORIDALMA HIGH INFORMED ME THAT PT HAS PRECAUTIONS AND THAT I CANNOT VISIT IN PERSON.FLORIDALMA HIGH WILL INFORM PT THAT I AM AVAILABLE TO VISIT BY PHONE IF HE HAS A NEED. WILL FOLLOW
--- NOTE | 2020-08-27 14:30 | NUR ---
Physical therapy in room to work with patient. Patient laying in bed and states "I don't feel good and I don't want to do any activity right now." Patient encouraged to get out of bed and work with PT. Patient is not interested.
--- NOTE | 2020-08-27 15:14 | NUR ---
SPOKE WITH PATIENT BY PHONE. PATIENT VERY TALKATIVE. PATIENT STATES HE LIVES IN APARTMENT AT [place]. HE IS VERY CONCERNED THAT HE CAN'T PAY RENT. HE STATES HE WILL BE EVICTED IF HE DOESN'T PAY BY THURSDAY. HE STATES HE LIVES AT [facility] AND HIS RENT IS $463 AND IT IS THROUGH [facility]. I ASKED IF HE HAD THEIR NUMBER TO CALL, HE STATES HE DOES NOT. I TOLD HIM I WILL MAKE SOME CALLS, HE IS OK WITH ME CALLING AND TELLING THEM HE HAS COVID SO HE WON'T LOOSE HOUSING. PATIENT STATES HE IS BEHIND ON ELECTRIC, BUT DOESN'T THINK THEY WILL SHUT IT OFF. HE DENIES KNOWING ABOUT ENERGY ASSISTANCE. DISCUSSED WE CAN LOOK INTO THIS WITH HIM. HE HAS FULL COVERAGE FOR MED COSTS AND HE RECEIVED $144 IN [employer] FOOD ASSISTANCE A MONTH, PLUS HE GETS FOOD THROUGH THE LOCAL FOOD BANK ALSO. HE HAS A 4WW WALKER. HE HAS A STATE PAID CAREGIVER MIKE WHO HE STATES ALSO IS SICK WITH COVID SO SHE CANNOT HELP HIM FOR NOW, IS UNSURE WHEN SHE WILL BE BACK. HE DOES NOT FEEL HE CAN GO WITHOUT ASSISTANCE AT HOME. SHE IS THERE 4.5 HOURS A DAY, THU-THURSDAY. HE DOES NOT DRIVE, HAS TRANSPORTATION WITH CAREGIVER OR THROUGH [facility]. HE STATES THERE ARE NO STAIRS. STATES HE HAS AN ARRANGEMENT WITH THE LOCAL MARKET FOR CHARGE ABILITY FOR EMERGENCY. HE STATES THE CAREGIVER GIVES HIS MEDS. WE DISCUSSED THAT IT LOOKS LIKE HE MIGHT NOT BE TAKING THEM CORRECTLY, HE STATES THE DOCTOR TOLD HIM THAT. I DISCUSSED THAT HOME HEALTH MIGHT COME AND THEY CAN HELP HER AND HE WITH EDUCATION ON THIS. HE IS AGREEABLE. WE DISCUSSED THAT HE COULD BE DISCHARGED SOON, BUT HE STATES HE DOESN'T THINK HE CAN GO HOME SAFELY WITHOUT CAREGIVER COMING DAILY. WE WILL CONTINUE TO FOLLOW AND TALK WITH [facility].
--- NOTE | 2020-08-27 15:15 | NUR ---
RESPIRATORY THERAPIST ASSISTANT assisted pt. from the chair to the bed. Assisted with bed bath. no other needs at this time. call light with in reach
--- NOTE | 2020-08-27 15:45 | NUR ---
RECEIVED CALL FROM LUI ACUNA WHO IS HIS CENTRAL SUPPLY TECH. DISCUSSED HIS CONCERNS ABOUT RENT AND EVICTION. SHE STATES TO CALL THE HOUSING AUTHORITY AT [phone]. SHE DOES NOT THINK THIS WILL HAPPEN, BUT THEY DO NEED TO KNOW WHY HE CAN'T PAY ON TIME. ALSO DISCUSSED THAT HIS CAREGIVER IS SICK AND IF THERE IS ANY CHANCE AT REPLACEMENT UNTIL SHE IS ABLE TO RETURN. SHE STATES THEY HAVE NO ABILITY TO DO THIS, HE WOULD NEED TO HIRE SOMEONE. CALLED HOUSING AUTHORITY WHO PUT ME THROUGH TO [facility]. SHE IS FAMMILIAR WITH PATIENT. DISCUSSED PATIENTS SITUATION AND CONCERNS. SHE STATES THERE WILL BE NO LATE FEE AND TO LET THEM KNOW IF HE CONTINUES HERE PAST DUE DATE THE . CALLED CCU AND SPOKE WITH RN WHO IS GOING IN TO LET PATIENT KNOW. UPDATED DR HARDIN ON SITUATION WITH CAREGIVER.
--- NOTE | 2020-08-27 17:03 | NUR ---
Patient sitting up in chair watching tv. Denies needs at this time, call light within reach.
--- NOTE | 2020-08-27 17:54 | NUR ---
Patient sitting in chair watching tv. Vital signs taken. BG of 191, 3 units of insulin given. Dinner delivered. Patient incontinent of urine, new attends in place. Patient denies pain, headache, or nausea. 2LNC in place, SpO2 ranging from 92-98%. Respirations appear even and unlabored. Call light within reach.
--- NOTE | 2020-08-27 19:25 | NUR ---
Patient report recieved. care assumed at this time.
--- NOTE | 2020-08-27 20:19 | NUR ---
In room for medication administration and to complete assessment. pt talkative and cheerful. does report right shoulder pain, prn tylenol given. pt does not appear short of breath. heart rate in the 80s at rest. spo2 = 96 percent on 2 l oxymask. plan of care for evening discussed, all questions answered. call light within reach, no further needs at this time.
--- NOTE | 2020-08-27 20:44 | NUR ---
assisted pt with repositioning and gave pt a sherbert. call light within reach. pt denies further needs.
--- NOTE | 2020-08-27 22:30 | NUR ---
PT UNCOMFORTABLE IN BED AND WITH WIRES AND TUBES CONNECTED TO HIM. CHANGED PTS DEPENDS AND ASSISTED HIM TO RECLINER. PT NOW RESTING IN RECLINER WATCHING TELEVISION. SPO2 =93 PERCENT ON ROOM AIR. CALL LIGHT AND PERSONAL BELONGINGS WITHIN REACH.
--- NOTE | 2020-08-28 00:30 | NUR ---
PT FREQUENTLY PUTTING EQUAL EMPLOYMENT OPPORTUNITY OFFICER LIGHT NEEDING ASSISTANCE WITH REPOSITIONING IN BED. EDUCATED PATIENT ABOUT GROUPING CARE. CALL LIGHT WITHIN REACH. NO FURTHER NEEDS AT THIS TIME.
--- NOTE | 2020-08-28 01:30 | NUR ---
ASSISTED PT WITH REPOSITIONING AND FIXING TELEMETRY UNIT. NO FURTHER NEEDS AT THIS TIME.
--- NOTE | 2020-08-28 02:59 | NUR ---
pt had incontinent episode in bed. complete bed change, limited bed bath done. assessment completed. pt has a few fine crackles in right lower base, all other air bronson clear. pt mainted o2 saturations in the mid 90s while talking, no noted respiratory distress. heart rate remained in the 90s with exertion. pt back in bed, call light within reach. no further needs at this time
--- NOTE | 2020-08-28 04:18 | NUR ---
PT REMOVED OXYGEN. SATURATIONS DECREASED INTO THE LOW 80S. O2 PLACED BACK ON PT AT THIS TIME. SATURATIONS NOW AT 92 PERCENT ON 2 L NC.
--- NOTE | 2020-08-28 06:30 | NUR ---
in room to provide incontinent care and draw labs. pt appears more short of breath than earlier in the shift. placed back on oximask per patients request. call light within reach. no further needs at this time.
--- NOTE | 2020-08-28 07:35 | NUR ---
REPORT REC'D FROM TOBACCO WETTER AND CARE OF PATIENT RESUMES. PATIENT USES CALL LIGHT AND REQUESTING BLANKETS, BREAKFAST ORDERED, AND PLAN OF DAY BRIEFLY DISCUSSED WITH PATIENT. PATIENT NEEDS ADDITIONAL BLOOD DRAWN THIS AM FOR INR LEVEL.
--- NOTE | 2020-08-28 08:57 | NUR ---
IN PATIENT'S ROOM FOR ASSESSMENT, MEDICATIONS, AND BREAKFAST. PT VERY TALKATIVE BUT STATES HE IS STILL NOT FEELING WELL, DUE TO SOME CHEST TIGHTNESS AND ALSO A HEADACHE. PT AFEBRILE AT THIS TIME. PT EDUCATED ON NOT USING SALT, HE CONTINUES TO USE A LOT ADDED TO ALL OF HIS FOOD. PT STATES, "I ALWAYS USE SALT ON ALL MY FOOD." PT WANTING TO GET UP TO CHAIR HERE AFTER A LITTLE WHILE. BLOOD DRAWN FROM IV SITE ON [facility] AND SENT TO LAB. IV ABX NOW INFUSING. PT GIVEN TYLENOL PRN FOR HEADACHE. PT ABLE TO TAKE ALL OF HIS MEDICATIONS W/O DIFFICULTY.
--- NOTE | 2020-08-28 10:06 | NUR ---
pt. used call light to notfy he was feeling alittle nausous. SUPERVISOR BEAM DEPARTMENT notified RN who then took in meds. no other needs at this time.
--- NOTE | 2020-08-28 10:13 | NUR ---
PATIENT USES CALL LIGHT AND STATES, "HE IS JUST ABOUT NAUSEOUS, THE FEELING I GET RIGHT BEFORE I START VOMITING." IN PATIENT'S ROOM TO GIVE NAUSEA MEDS. DR. HARDIN NOW IN ROOM. PT REMAINS IN CHAIR. BLOOD PRESSURE CHECKED AND FOUND TO BE 127/80 (92). PT ALSO REMAINS ON ROOM AIR AND SP02 IS 93% AT THIS TIME. PT STATES HE FEELS LIKE HE CAN'T COUGH UP WHAT HE NEEDS TO IN HIS LUNGS.
--- NOTE | 2020-08-28 11:00 | NUR ---
pt. notified WELL SERVICING RIG OPERATOR that he thought he was going to throw up but was just coughing up and spitting out some flem. RN has resently gave pt. an anti nausea med and waiting for it to take effect. no other needs at this time
--- NOTE | 2020-08-28 13:08 | NUR ---
IN PATIENT'S ROOM FOR MEDICATIONS AND ASSESSMENT. PT STATES OVERALL HE IS FEELING BETTER THIS AFTERNOON THAN THIS MORNING. PATIENT'S POTASSIUM INFUSION STARTED IN RIGHT AC WHICH IS CAUSING HIS UPPER ARM TO HURT A LITTLE. BLOOD RETURN STILL EVIDENT ON IV. PATIENT'S ATTENDS CHANGED, AND PATIENT ABLE TO VOID TO URINAL FOR 75 ML. PT IS ALSO INCONTINENT OF URINE. PT HELPED BACK TO BED AND NOW RESTING. PT REMAINS ON ROOM AIR. CALL LIGHT WITHIN REACH. CONTINUE TO MONITOR.
--- NOTE | 2020-08-28 14:19 | NUR ---
PRESS WORKER HELPER went in to pt. to give a full bed bath and pt. stated he did not want one today, that he had one yesterday and washed up this morning. FERN said ok left the room and informed the RN of his decison. no other needs at this time.
--- NOTE | 2020-08-28 14:20 | NUR ---
UNABLE TO VISIT PT DUE TO PRECAUTIONS. PT TALKING ON PHONE, LEFT G.POST FOR PT AND WILL FOLLOW
--- NOTE | 2020-08-28 15:00 | NUR ---
SPOKE WITH PATIENT BY PHONE. DISCUSSED WITH HIM POSSIBLE DISCHARGE OPTIONS. INCLUDING SNF STAY AT A FACILITY IN [place] THAT TAKES COVID+ PATIENTS. PATIENT DOES NOT WANT TO DO A FACILITY. DISCUSSED THAT HE LIVES ALONE AND CAREGIVER IS ILL REPORTED BY HIM. HE STATES HE SPOKE WITH HER AND SHE IS FEELING BETTER. HE STATES SHE DID NOT GET A COVID TEST, AND SHE IS NOT SURE SHE HAS IT. DISCUSSED HE WILL NEED TO QUARANTINE AND ANYONE WHO WOULD COME IN CONTACT WOULD BE AT RISK FOR IT. HE STATES SOMEONE TOLD HER SHE HAD IT BUT SHE WASN'T TESTED. I EXPLAINED THAT WITHOUT A TEST THAT CANNOT BE CONFIRMED. ASKED IF HE FELT SAFE AT HOME WITHOUT A CAREGIVER. HE STATES HE DOES. HE STATES IF HE HAD TO BE ALONE FOR A WEEK OR SO THAT WOULD BE "FINE". HE STATES HE HAS SOME FRIENDS AND NEIGHBORS WHO WOULD BRING GROCERIES. HE STATES HE CAN FIX MICROWAVE FOODS, EASY FOODS IF NEEDED. WE DISCUSSED THAT WE CAN ORDER HOME HEALTH IF PHYSICAL THERAPY IS NEEDED, AND WE WILL ASK FOR RN FOR MED MANAGEMENT WE ARE CONCERNED HE NEEDS HELP WITH GETTING MEDICATIONS CORRECTLY. HE REMEMBERS THIS FROM OUR PREVIOUS CONVERSATION AND IS AGREEABLE. HE STATES HE TAKES OWN SHOWER, HE HAS HANDICAP BATHROOM WITH SHOWER SEAT AND GRAB BARS. THE ONLY THING HE HAS HELP WITH IS WASHING HIS HAIR. I DISCUSSED WITH HIM OUR CHW PROGRAM AND THAT WE WILL FOLLOW HIM AT DISCHARGE AT HOME TO MAKE SURE HE GETS ACCESS TO RESOURCES IN COMMUNITY FOR COVID PATIENTS. HE IS VERY INTERESTED IN THIS. HE UNDERSTANDS THAT THEY WILL CONTACT HIM AND SPEAK WITH HIM ABOUT THIS PROGRAM. AGAIN PATIENT STATES HE WOULD FEEL SAFE WITH THIS PLAN AND DOES NOT WISH TO PURSUE A STAY AT A FACILITY. STAFF AND DR WILFRED YOST.
--- NOTE | 2020-08-28 15:03 | NUR ---
POTASSIUM INFUSION COMPLETE. PATIENT TOLERATED INFUSION WELL. IV FLUSHED WITH 10 ML NS. IV SALINE LOCKED. PATIENT REQUESTED TO GET UP TO CHAIR. ASSISTED PATIENT USING WALKER FROM BED TO CHAIR. BEDSIDE TABLE WITHIN REACH. CALL LIGHT AND PHONE WITHIN REACH.
--- NOTE | 2020-08-28 15:47 | NUR ---
PHYSICAL THERAPY GOING IN TO SEE PATIENT. CHECKED IN WITH PATIENT AND HE STATES HE IS FEELING A LITTLE BETTER NOW COMPARED TO THIS MORNING. PT AGREEABLE TO WORK WITH PHYS THERAPY NOW SOME, BUT WAS NOT WILLING TO EARLIER TODAY.
--- NOTE | 2020-08-28 16:32 | NUR ---
IN PATIENT'S ROOM AND HELPING PATIENT TO BATHROOM TO VOID AND HAVE A BM. PT IS A STANDBY ASSIST INTO BATHROOM. NOW BACK IN BED. VITALS TAKEN AND ASSESSMENT COMPLETED. ASSESSMENT UNCHANGED FROM EARLIER TODAY. WILL CONTINUE TO MONITOR.
--- NOTE | 2020-08-28 21:00 | NUR ---
SHIFT REPORT RECEIVED FROM FLORIDALMA HOLDER. ASSESSMENT COMPLETED AT THIS TIME. PT IS ALERT/ORIENTED, WATCHING TV IN BED. DENIES PAIN. LUNGS CLEAR, RA. HR IRREGULAR, TELE #1, HR 90-110. BOWEL TONES ACTIVE. ATTENDS DRY AT THIS TIME. SKIN GROSSLY INTACT, BRUISING NOTED. REDNESS TO PANNUS/NEHEMIAH-AREA, DESITIN AND DESENEX APPLIED. CHRONIC EDEMA TO BILATERAL FEET. IV INTACT AND PATENT. FRESH ICE WATER PROVIDED, PT DENIES FURTHER REQUESTS AT THIS TIME. CALL LIGHT WITHIN REACH.
--- NOTE | 2020-08-28 22:33 | NUR ---
PT SLEEPING AT THIS TIME, NO APPARENT DISTRESS. RESPIRATIONS EVEN AND UNLABORED, RR:16. HR:105 PER TELE #1. WILL ALLOW FOR REST AND CONTINUE TO MONITOR.
--- NOTE | 2020-08-29 00:26 | NUR ---
PT CONTINUES TO SLEEP, NO APPARENT DISTRESS. RESPIRATIONS EVEN AND UNLABORED. HR:110.
--- NOTE | 2020-08-29 02:30 | NUR ---
DR. HARDIN NOTIFIED OF PT'S HR TRENDING UP AND NOW SUSTAINING 115-130, BRIEFLY HITTING HIGH 150. ORDER RECEIVED FOR ONE TIME DOSE OF 5MG IV METOPROLOL. ASSESSMENT COMPLETED. PT DENIES PAIN BUT TEMP FOUND TO BE 100.2, PRN TYLENOL GIVEN. REMAINDER OF ASSESSMENT UNCHANGED. PT DENIES REQUESTS, CALL LIGHT AND BELONGINGS WITHIN REACH.
--- NOTE | 2020-08-29 03:48 | NUR ---
PT PLACED ON 2L O2 VIA NC AT THIS TIME FOR SATS 83-85% ON RA. PT REPORTS FEELING UNCOMFORTABLE IN THE BED. ASSISTED HIM TO MOVE TO CHAIR WITH SBA AND FWW. NO FURTHER REQUESTS, CALL LIGHT AND BELONGINGS WITHIN REACH.
--- NOTE | 2020-08-29 05:24 | NUR ---
RECHECKED VITAL SIGNS, STABLE. BLOOD DRAWN FROM RIGHT IV FOR MORNING LABS. WARM BLANKET AND FRESH ICE WATER PROVIDED. PT REMAINS UP IN CHAIR, DENIES FURTHER NEEDS AT THIS TIME.
--- NOTE | 2020-08-29 06:45 | NUR ---
PT CALLED TO REQUEST TO MOVE BACK TO BED. ATTENDS CHANGED DUE TO INCONTINENCE AND PT TRANSFERRED FROM CHAIR TO BED WITH SBA AND FWW. 2L O2 VIA NC REMAINS IN PLACE. PT DENIES FURTHER REQUESTS AT THIS TIME. CALL LIGHT AND BELONGINGS WITHIN REACH.
--- NOTE | 2020-08-29 09:05 | NUR ---
IN PATIENT'S ROOM FOR ASSESSMENT, MEDICATIONS. PT UP TO CHAIR WITH OTHER RN AND NOW RESTING. PT STILL SLIGHTLY FEBRILE AT 99.6 AND C/O HEADACHE AND SOME MILD NAUSEA. BREAKFAST ORDERED FOR PATIENT. PT HAS NEEDED OXYGEN THIS AM, AND IS PUT BACK ON 2 L NC DUE TO SP02 STAYING BELOW 90% CONSISTENTLY. PT ENCOURAGED TO TAKE DEEP BREATHS AND COUGH. IS/ACAPELLA ORDERED. PT ABLE TO TAKE PO MEDS W/O DIFFICULTY. PT REPORTS HE SLEPT PRETTY WELL UNTIL HIS H/A OCCURED. CALL LIGHT AND PHONE WITHIN REACH. PT EAGER TO D/C HOME ONCE HE IS BETTER.
--- NOTE | 2020-08-29 09:46 | NUR ---
PHYS THERAPY IN ROOM WITH PATIENT. PATIENT WILLING TO WORK WITH PHYS THERAPY TODAY WHICH IS IMPROVEMENT FROM YESTERDAY.
--- NOTE | 2020-08-29 10:43 | NUR ---
PATIENT ASKING TO GO BACK TO BED AND HELPED WITH THIS. PT MOVING WELL WITH SBA AND FWW. ATTENDS CHANGED. PT WAITING FOR DR. HARDIN TO COME SEE HIM THIS AM. PT REMAINS ON 2 L NC WITH SP02 OF 91% AT THIS TIME. CONTINUE TO MONITOR. CALL LIGHT WITHIN REACH.
--- NOTE | 2020-08-29 14:16 | NUR ---
CALLED DR. HARDIN AND UPDATED ON PATIENT'S CONDITION AND LOW POTASSIUM LEVEL, WELL ON AND OFF NEED FOR OXYGEN. WILL WAIT FOR ORDERS FROM MD FOR POTASSIUM REPLACEMENT. PT ANXIOUS TO DISCHARGE, BUT UNABLE TO GET INTO HIS APARTMENT TODAY DUE TO HIS CAREGIVER HVAING HIS APARTMENT SALVADOR, AND HE NOT BEING ABLE TO GET A HOLD OF HIS CAREGIVER. PT IS PLANNING ON DISCHARGING HOME AND HAVING HIS FRIEND NELL PICK HIM UP. RAILROAD CROSSING PROTECTION MAINTAINER WORKING WITH PATIENT TO SET UP IN HOME VISITS FROM [facility] WORKER, AND POTENTIALLY HAVING HOME HEALTH SET UP IF THIS IS ORDERED AT DISCHARGE. PATIENT HAD A FEVER IN THE NIGHT AND REQUIRED OXYGNE, BUT SINCE FEVER HAS RESOLVED, OXYGEN REQUIREMENTS HAVE GONE AWAY PT IS 92% ON ROOM AIR AT THIS TIME. CONTINUE TO MONITOR.
--- NOTE | 2020-08-29 14:45 | NUR ---
WAS ABLE TO VISIT WITH PT-HE SEEMS TO BE IMPROVING. MENTIONED THAT HE IS FRUSTRATED WITH SITUATION WITH HIS CAREGIVER. GAVE ENCOURAGEMENT, WILL FOLLOW
--- NOTE | 2020-08-29 15:33 | NUR ---
SPOKE WITH JUDY MACIAS [facility] REGARDING PATIENT NEEDING NURSING FOR MED MANAGEMENT AND PT AT DISCHARGE. SHE STATES IF HE GOES HOME TOMORROW THEY HAVE A NURSE WHO CAN ADMIT ON THURSDAY, IF NOT THEY CANNOT ADMIT UNTIL AFTER WEEKEND. SPOKE WITH STAFF IN CCU WITH THIS UPDATE. DR HARDIN IS THERE WITH A PATIENT, THEY WILL LET HER KNOW.
--- NOTE | 2020-08-29 15:45 | NUR ---
PATIENT GIVEN BED BATH AND NEW GOWN PROVIDED. PT TOLERATED WELL. ATTENDS CHANGED FOR LARGE INCONTINENT VOID AND NEW POWDER APPLIED TO GROIN FOLDS. PT HAD A SMALL MUCOUS LIKE BM. DINNER ORDERED FOR PATIENT. DR. HARDIN IN TO SEE PATIENT AND ORAL POTASSIUM ORDERED. CONTINUE TO MONITOR. UPDATE FROM CASE MANAGAMENT ABOUT POTENTIAL D/C HOME TOMORROW WITH HOME HEALTH BEING SET UP ON THURSDAY.
--- NOTE | 2020-08-29 17:20 | NUR ---
PATIENT GIVEN IS AND ACAPELLA AND INSTRTUCTED ON USE. PT ABLE TO USE WELL.R EMAINS ON ROOM AIR AT THIS TIME. DINNER DELIVERED TO [facility]. PT GIVEN SUB Q INSULIN PER SS. CALL LIGHT WITHIN REACH.
--- NOTE | 2020-08-29 19:48 | NUR ---
SHIFT REPORT RECEIVED FROM FLORIDALMA HOLDER. PT IS CURRENTLY RESTING IN BED ON ROOM AIR. HR 90'S PER TELE #1.
--- NOTE | 2020-08-29 21:30 | NUR ---
ASSESSMENT COMPLETED. PT IS ALERT/ORIENTED, REPORTS MILD GENERALIZED DISCOMFORT, PRN TYLENOL GIVEN. LUNGS CLEAR, 4L APPLIED FOR SPO2 LOW TO MID 80'S. HR IRREGULAR, RATE 90-100'S, TELE #1. BOWEL TONES ACTIVE, PT REPORTS NAUSEA, HAD SMALL (LESS THAN 25ML) AMOUNT OF EMESIS, ZOFRAN ADMINISTERED. IV SITE INTACT AND PATENT. INCONTINENT OF URINE, NEW ATTENDS AND PERICARE PROVIDED, DESITIN AND DESENEX APPLIED TO RED AREAS OF GROIN AND UNDER PANNUS. PT REPOSITIONED HIMSELF ONTO LEFT SIDE FOR SLEEP. NO OTHER REQUESTS OR COMPLAINTS AT THIS TIME. CALL LIGHT AND BELONGINGS WITHIN REACH.
--- NOTE | 2020-08-29 22:49 | NUR ---
PT STILL FEELING NAUSEATED AND NOW REPORTS GENERALIZED BODY ACHES 8/10. PRN MOTRIN AND PHERNERGAN GIVEN. PT MOVED TO CHAIR WITH 1-PA AND FWW. OXYGEN DECREASED TO 2L VIA NC.
--- NOTE | 2020-08-29 23:33 | NUR ---
PT STILL REPORTING GENERALIZED AND ABDOMINAL DISCOMFORT. PT ASSISTED BACK TO BED PER REQUEST WITH 1-PA AND FWW. PT REPOSITIONED HIMSELF ON IS LEFT SIDE AND ICE PACK PROVIDED. NO FURTHER REQUESTS AT THIS TIME, CALL LIGHT AND BELONGINS WITHIN REACH.
--- NOTE | 2020-08-30 01:33 | NUR ---
PT APPEARS TO BE ASLEEP ON HIS LEFT SIDE. NO APPARENT DISTRESS, RESPIRATIONS EVEN AND UNLABORED. HR:89-98 ON TELE #1.
--- NOTE | 2020-08-30 02:54 | NUR ---
PT CONTINUES TO SLEEP, NO APPARENT DISTRESS, RESPIRATIONS EVEN AND UNLABORED. HR:102.
--- NOTE | 2020-08-30 05:30 | NUR ---
PT CALLED BECAUSE HE DROPPED REMOTE CONTROL. ASSESSMENT COMPLETED. PT REPORT 6/10 HEADACHE PAIN, PRN TYLENOL GIVEN. REMAINDER OF ASSESSMENT UNCHANGED. PERICARE AND NEW ATTENDS PROVIDED FOR URINE INCONTINENCE. PT REPOSITIONED HIMSELF ONTO RIGHT SIDE. BLOOD DRAWN FROM RIGHT IV FOR MORNING LABS. PT DENIES FURTHER REQUESTS OR COMPLAINTS AT THIS TIME. CALL LIGHT WITHIN REACH.
--- NOTE | 2020-08-30 06:43 | NUR ---
TITRATED OXYGEN TO 4L FOR SPO2 IN MID 80s.
--- NOTE | 2020-08-30 07:40 | NUR ---
0705: Report received from Yolis HEDRICK. Tele shows a-fib at 98 at this time.
--- NOTE | 2020-08-30 09:24 | NUR ---
PT RESTING IN HIS CHAIR AND IS EATING HIS BREAKFAST. NO TROUBLE SWALLOWING HIS FOOD IS NOTED WHICH WAS CUT INTO SMALL PIECES. HE DENIES ANY SOB OR TROUBLE BREATHING, SAT 95% ON 4L, O2 DECREASED TO 2L AT THIS TIME. PT DENIES ANY ACEVEDO OR ANY OTHER PAIN AT THIS TIME. HE STATES HE IS FEELING MUCH BETTER AND IS HOPEFUL TO GO HOME TODAY. ASSESSMENT COMPLETED.
--- NOTE | 2020-08-30 09:30 | NUR ---
Spoke with Carter by phone as he is covid +. He cont. to live in [place] in an apartment. He states he state paid cg has covid. He plans on dc to home and is wanting to dc today. Reports from RN, PT, and Dr. pt is not ready to dc and he will certainly need a cg. He denies need for cg and wants to go home. I suggested short placement to SNF until his cg can resume care. He states she became sick on Thursday. He also states she has not been working out and he has been told she gave him the wrong meds. I asked if she fills his medbox and he states yes, but he take his own meds from the box. I asked if he takes his meds correctly from the box and he states most of the time. He declines a SNF and cont. to state he will go home. I let him know he can leave AMA, but this is not recommended. I will follow up with him when I contact [facility] and his cg. Called and spoke with Phuong. She states she is covid + and sounds extremely ill. She has had her phone turned off as Carter and his friend cont. to call her up to 4 times per hour and she cannot rest. She thinks she can return to work the or the . Per Phuong, Carter has had other care givers assist him in the past. Called and spoke with María enciso from [facility] as Nichole Arrieta is off work for a while. UPdated to issues: Carter is Covid +, CG Phuong is Covid +. Pt wanting to return to home today. Per PT he is unable to walk 10 feet without becoming shakey, RN states he needs max assist with everything. She will check to see if there is anything to be done on her end.
--- NOTE | 2020-08-30 09:34 | NUR ---
SAT NOW 92% ON 2L VIA NC AND PT CONTINUES TO DENY ANY SOB.
--- NOTE | 2020-08-30 09:35 | NUR ---
TANK TRUCK MECHANIC assisted pt. up to chair. Pt. washed face and hands. TANK TRUCK MECHANIC assisted with washing the rest of pt. Gown changed bed linens changed. Breakfast given. room picked up. no other needs at this time. call light within reach
--- NOTE | 2020-08-30 10:39 | NUR ---
Pt denies any sob or pain at this time, sat 90% at this time on 2l.
--- NOTE | 2020-08-30 11:10 | NUR ---
Pt resting in his bed and his sat decreased to 86% on 2l, o2 increased to 4l via nc. Pt assisted back to his chair per his request and his call light is within reach. Pt declines to order his lunch as he states he is not hungry. Carter also states he is upset following a talk with the dc tool and production planner as he states he was told he will need to go to a facilty. Carter states he will not be going to a facilty and that he is fine to go home. Carter also states he declined physical therapy today. Will continue to monitor. Sat on 4l is now 92%.
--- NOTE | 2020-08-30 12:39 | NUR ---
Pt complains of a infante rated at a 5 and pain behind his ears from the nc. Pt given ear protectors for the nc and some tylenol for his infante. Pt assisted back to his bed per his request with a 1PA and the use of the fww. Pt is unsteady on his feet and he is quite weak and did stumble. Pt also complains of being cold and the heat was turned up and he was covered with several blankets. Call hill within reach.
--- NOTE | 2020-08-30 14:21 | NUR ---
PT RESTING IN HIS CHAIR AND HE NOW DENIES ANY NAUSEA. A-FIB RUNNING IN THE 80'S AT THIS TIME. SAT 93% ON 4L. PT REMAINS UPSET ABOUT IT BEING MENTIONED THAT HE MAY REQUIRE PLACEMENT. PT ALLOWED TO VOICE HIS CONCERNS AND WAS INSTRUCTED TO TALKED WITH DR HARDIN ABOUT THIS WHEN SHE SEE'S HIM. PT INCONT OF URINE AND HE WAS CLEANED UP AND FRESH ATTENDS PLACED. CALL ZULETA REMIANS WITHIN REACH.
--- NOTE | 2020-08-30 15:30 | NUR ---
Received call from María Castañeda. She has spoken with Meg who is covering for his case monitor. [facility] does not have emergent care givers and do not have anyone to see pt's with covid. They will not have anyone to cover, until his cg is able to return following her bout with Covid. Called Carter and he still is wanting to go home. He did speak with Dr. Newman and agreed to stay until the weekend. He again states he will not go to a SNF even for a short while. He plans on going on without a caregiver. He doesn't want to go against medical advice, but will if he has to.
--- NOTE | 2020-08-30 15:48 | NUR ---
Pt called to be assisted back to his bed from his chair. Before staff could get on PPE he was already in his bed. Pt called a few minutes later as he could not position himself to be comfortable. Pt was educated as to us needing a few minutes to don PPE and attempting to cluster care and he responded, "I won't call again". Carter was informed this was not the meaning of what was said and he did not respond. Call hill is within reach as well as personal items. IS and accupella use encouraged which he is not using at this time as requested.
--- NOTE | 2020-08-30 16:26 | NUR ---
Pt attempted to move himself in his bed and his RR increased 26. Sat is 92% on 4l at this time.
--- NOTE | 2020-08-30 17:04 | NUR ---
Pt called and states he was attempting to sit up at the edge of the bed and got his feet over and could not sit up. Pt assisted to the chair at this time. Call light and personal items within reach. Pt states he is not hungry and he did not want dinner and was given an ensure.
--- NOTE | 2020-08-30 18:18 | NUR ---
Pt called and states he is cold and needs another blanket and that his remote is not working. Pt given a warm blanket and his remote was found to be working. Pt states he is okay in his chair and that he wants to stay up until around 2200. Pt used his IS at this time when requested.
--- NOTE | 2020-08-30 18:22 | NUR ---
Pt again transfered himself to his bed and was unable to get himself fully into the bed and called for help. The pt had been instructed to not transfer himself several times but continues to do so. Denia the charge nurse went into the room to help him and discuss safety mesures.
--- NOTE | 2020-08-30 18:29 | NUR ---
1819 Pt had stated that his attends are dry and declined to allow me to check them.
--- NOTE | 2020-08-30 18:45 | NUR ---
THIS RN IN TO ASSIST PATIENT. PATIENT WAS FOUND TO HAVE GOTEN HIMSELF BACK TO BED AND HIS OXYGEN CAME OFF. REPOSITIONED PATIENTAND PATIENT RESTING ON HIS SIDE. PATIENTS SPO2 DROPPED. NASAL CANNULA BACK ON AND ON 6L OXYGEN. SPO2 92%. EDUCATED PATIENT HE IS NOT ALLOWED TO TRANSFER ON HIS OWN. PATIENT STATES "I JUST WANT TO DO IT MYSELF". EDUCATEDE PATIENT WE NEED TO BE IN THE ROOM AT THE BEDSIDE FOR SUPPORT SO PATIENT DOES NOT HAVE A FALL. PATIENT AKNOWLEDGE EDUCATION AND REPEATED BACK TO STAFF THAT HE WILL CALL FOR HELP. NO OTHER NEEDS AT THIS TIME.
--- NOTE | 2020-08-30 19:00 | NUR ---
Sat had decreased 79% when the pt moved himself back to bed and his nc flipped over at that time. o2 changed to oxymask at 6l and sat increased back into the 90's. Lung sounds unchanged which are decreased, rr was 26 and dropped down to 24 and he states his breathing is starting to feel better. O2 changed back to the nc at 6L at this time. Dr Newman will be called and notified at this time.
--- NOTE | 2020-08-30 19:28 | NUR ---
PATIENT ASSISTED UP IN THE BED WITH CHARISSE HEDRICK. PATIENT REPORTS SOB. REPOSITIONED WITH PILLOW SUPPORT. PATIENTS SPO2 92% ON 6L NC. PATIENT REFUSED TO LEAVE THE OXYMASK IN PLACE. ENCOURAGED PATIENT TO RELAX AND STAFF WOULD CALL THE MD AND UPDATE. CHARISSE HEDRICK CALLED MD HARDIN TO UPDATE.
--- NOTE | 2020-08-30 19:30 | NUR ---
PATIENT APPEARS SOB AND REPORTS FEELING HIS "A.FIB RACING". HR 100. RR 30. O2 SAT 96% ON 6L NC. PATIENT IS WHEEZING AND DIMINISHED IN THE BASES. DISCUSSED WITH . CHEST XRAY ORDERED. [facility] TREATMENT. ANN FOR STRICT I&O'S. RT NOTIFIED. IMAGING IN FOR PORTABLE CHEST XRAY.
--- NOTE | 2020-08-30 20:30 | NUR ---
FAILED ATTEMPTS X3 FOR JUAREZ CATH DUE TO ANATOMY. PATIENT CONTINUES TO DRIBBLE CONTINUOUSLY. PATIENT ATTENDS CHANGED. NEHEMIAH CARE DONE. POWDER AND DESATIN APPLIED. PATIENT REPOSITIONED IN BED TO THE LEFT SIDE. PATIENT IS HYPER FIXATED ON HIS A.FIB AND REPORTS THIS HIS PRIMARY CONCERN. ATTEMPTS TO EDUCATE PATIENT ARE UNSUCESSFUL. FAILED IV SITE X2. LABS DRAWN FROM BUTTERFLY. SCHEDULED MEDS PROVIDED.
--- NOTE | 2020-08-30 21:00 | NUR ---
PATIENT UP TO HAVE A BM. INSITANT ON WALKING TO THE BATHROOM. PATIENT ATTEMPT TO DIGITALLY STIMULATE HIS BOWELS RESULTS IN A MEDIUM BM AND SOME BRIGHT RED BLOOD. BLOOD IS MINIMAL, POSSIBLY HEMERROID. NO EXTRERNAL SIGN OF INJURY. PATIENT VOIDED LARGE AMOUNT. NEW ATTENDS AND DESATIN IN PLACE. PATIENT RETUNRED TO BED. TURNED TO LEFT SIDE. IV ABX STARTED PER ORDER. PATIENT APPEARS COMFORTABLE. CALL LIGHT IN REACH. TOLERATING 6L NC.
--- NOTE | 2020-08-30 21:01 | NUR ---
IN ROOM TO ASSIST FLORIDALMA MCQUEEN WITH PM CARE AND TO PUT IN JUAREZ. DEPENDS AND CHUCKS CHANGED ON PATIENT BED. PATIENT WAS CHATTING WITH RN AND I BUT WAS TALKING ABOUT HIS HEART. FLORIDALMA MCQUEEN EXPLAINED TO PATIENT THAT THERE IS MORE TO HIS CARE AT THIS POINT. PATIENT SAID "I WANT TO ROLL ON MY SIDE AND SLEEP". WE ASSURED PATIENT THAT WE WOULD GET HIM COMFORTABLE ONCE WE WERE ALL DONE. RN IN ROOM WHEN THIS UNDERWRITING ANALYST LEFT ROOM.
--- NOTE | 2020-08-30 21:12 | NUR ---
BLOOD DRAW SENT TO LAB BY THIS FUR STYLIST.
--- NOTE | 2020-08-30 21:51 | NUR ---
PATIENT CALLED TO GO TO BATHROOM. PATIENT AMBULATED TO BATHROOM WITH FWW AND 2PA. RN CHARISSE ASSISTED WITH TOILETING. BACK TO BED WITH FWW. 6L NC WHEN AMBULATING. CALL LIGHT IN REACH.
--- NOTE | 2020-08-30 22:00 | NUR ---
PATIENT REQUESTING TO REPOSITION IN BED. ATTENDS ARE DRY. IV STARTED BY JOHANA HEDRICK. PATIENT TURNED TO HIS LEFT. IV ABX PER ORDER. 6L NC. O2 SAT 92%
--- NOTE | 2020-08-30 23:14 | NUR ---
PATIENT REQUESTING TO GET OUT OF BED. WHICH STAFF DECLINED AND ENCOURAGED PATIENT TO TRY AND SLEEP. ASSISTED TO TURN TO RIGHT SIDE. IV POTASSIUM INFUSING AT HALF THE RATE DUE TO PATIENT'S REPORT OF PAIN AT THE IV SITE. ICE PACK APPLIED TO THE AREA WELL.
--- NOTE | 2020-08-31 00:05 | NUR ---
TOOK OVER CARE OF pt. RECEIVED REPORT FROM FLORIDALMA MCQUEEN. pt RESTING IN BED ON LEFT SIDE. RESPIRATIONS REGULAR AND UNLABORED. SAT 91%. CALL LIGHT WITHIN REACH.
--- NOTE | 2020-08-31 01:05 | NUR ---
CALL LIGHT ON. POTASSIUM COMPLETED, SECOND BAG INFUSING, RATE AT 50ML/HR FOR pt COMFORT. ASSISTED WITH COVERS. NO FURTHER REQUESTS AT THIS TIME. CALL LIGHT WITHIN REACH.
--- NOTE | 2020-08-31 02:15 | NUR ---
CALL LIGHT ON. pt REQUESTED ASSISTANCE REPOSITIONED. UP TO CHAIR, ARLINE GLEZ. pt REPORTED "OH THAT IS MUCH BETTER." PROVIDED A DIET SODA FOR INDIGESTION, pt REQUESTED TO WAIT ON MEDS AT THIS TIME "THE COLD SODA WORKED REAL WELL LAST TIME." CALL LIGHT WITHIN REACH. NO FURTHER REQUESTS AT THIS TIME.
--- NOTE | 2020-08-31 02:46 | NUR ---
ROUNDED ON pt. SITTING IN CHAIR WATCHING TV. REPORTED THE "SODA HAS DONE THE TRICK." NO REQUESTS AT THIS TIME. CALL LIGHT WITHIN REACH.
--- NOTE | 2020-08-31 03:09 | NUR ---
CALL LIGHT ON. pt REPORTED IV PUMP WAS BEEPING, INFUSION COMPLETED. SL. pt MENTIONED SOME NAUSEA, PROVIDED MEDICATION (SEE MAR). NO FURTHER REQUESTS AT THIS TIME. SATS 97%. CALL LIGHT WITHIN REACH.
--- NOTE | 2020-08-31 04:15 | NUR ---
CALL LIGHT ON. pt UP TO VOID, DRIBBLED FROM CHAIR TO TOILET. pt REPORTED BLOOD WITH DIGITAL, RECTAL STIMULATION. DARK, OLD LOOKING BLOOD NOTED AND CLEANED FROM HANDS. pt CLEANED UP. DEPENDS IN PLACE. SBA FWW TO BED. LAYING ON LEFT SIDE. O2 SAT MID 90'S ON O2 VIA NC. ASSESSMENT DONE. CALL LIGHT WITHIN REACH.
--- NOTE | 2020-08-31 05:39 | NUR ---
CALL LIGHT ON. pt UP TO CHAIR, REPORTED NAUSEA WHILE GETTING UP, EASED ONCE IN THE CHAIR. LABS DRAWN. pt CONTINOUSLY TALKED, ON 6L O2 VIA NC. O2 SATS IMPROVED WHEN SITTING IN CHAIR. CALL LIGHT WITHIN REACH.
--- NOTE | 2020-08-31 06:56 | NUR ---
LASIX GIVEN PER ORDERS (SEE MAR). pt REPORTED NAUSEA IS "GONE" CALL LIGHT WITHIN REACH.
--- NOTE | 2020-08-31 08:50 | NUR ---
IN TO ASSIST RT W/ BOOSTING PT UP IN BED. FOUND PT BRIEFS AND LINENS SOAKED IN IN URINE. PT DID RECEIVE 40 MG OF LASIX JUST PRIOR TO 7, REPORTS HE FELL ASLEEP AND HAD EPISODE OF INCONTINENCE. PT LINENS, GOWN, AND BRIEFS CHANGED. BARRIER CREAM APPLIED TO GROIN AREA. POWDERS TO FOLDS. ASSESSMENT COMPLETED AND MEDICATIONS GIVEN. 20 MEQ IV POTASSIUM INFUSING INTO RAC IV, IV ZITHROMAX INFUSING TO LFA IV. LUNG SOUNDS CLEAR BUL, CRACKLES HEARD IN MD HERO AWARE. EDEMA 1+ IN BLE, ELEVATED W/ PILLOWS. CALL LIGHT IN REACH.
--- NOTE | 2020-08-31 09:00 | NUR ---
MORNING BG 303, 7 UNITS OF HUMALOG GIVEN SUB-Q.
--- NOTE | 2020-08-31 09:00 | NUR ---
Update from RN. Pt. cont. weak. Pt also is refusing to eat or participate in PT as did not agree to discharge last night or today. Per Rn, pt still plans on dc this weekend.
--- NOTE | 2020-08-31 09:30 | NUR ---
IN TO HELP PT TO BATHROOM TO VOID. PT AMBULATORY W/ FWW, 1 PERSON ASSIST. TOLERATED MODERATELY WELL. NO HAT IN TOILET AND PT WAS UNABLE TO WAIT, VOID UNMEASURED, APPEARED CLEAR YELLOW. PT C/O RT SHOULDER PAIN FROM OLD ROTATER CUFF, 6/10 DULL PAIN.
--- NOTE | 2020-08-31 12:00 | NUR ---
IN TO DRAW BLOOD FOR BMP LABS. 2 ATTEMPTS MADE, 2ND SUCCESSFUL DRAWING FROM LEFT HAND. BG ELEVATED TO 454 RECHECKED PRIOR TO RECEIVING TRAY DOWN TO 347, 9 UNITS OF HUMALOG GIVEN. EDUCATED PT THAT BG WILL ELEVATED WHILE TAKING PO STEROIDS, PT WILL NEED CONTINUED REINFORCEMENT OF THIS. PT UP IN BED EATING LUNCH. CALL LIGHT IN REACH.
--- NOTE | 2020-08-31 12:01 | NUR ---
PT ALERT, ORIENTED AND SITTING IN CHAIR. IV ALARM GOING OFF-FLORIDALMA SWIFT AWARE AND WILL COME SHORTLY TO ATTEND. PT VERY FRUSTRATED, HE WANTS TO GO HOME AND FEELS HE CAN CARE FOR HIMSELF W/O HIS CAREGIVER AT THIS TIME. FEELS STAFF ARE NOT LISTENING TO HIM, PASSED ON TO FLORIDALMA SWIFT, SHE WILL VISIT WITH PT. ENCOURAGEMENT AND BLESSING GIVEN. WILL FOLLOW
--- NOTE | 2020-08-31 13:15 | NUR ---
PASTOR DIANE AT DOOR TO SEE PT, WHO VERABLIZED FRUSTRATIONS ABOUT HIS CARE. PT STATES HE FEELS LIKE HE IS HEALTHY ENOUGH TO GO HOME. THIS RN EXPLAINED THAT PT'S OXYGEN NEEDS ARE STILL HIGH HE IS STILL ON 5 L O2, AND GOING HOME WOULD NOT BE SAFE AT THIS TIME. RN ALSO EXPLAINED THAT PT WOULD BENEFIT FROM COOPERATING W/ PHYSICAL THERAPY HE HAS GENERALIZED WEAKNESS. PT STATES HE UNDERSTANDS BUT FEELS HIS OPINION DOESN'T MATTER. THIS RN CONTINUED THERAPEUTIC COMMUNICATION AND PT STATES HE WOULD LIKE TO TALK TO ASHLY FROM CASE MANAGEMENT. ATTEMPTED TO CALL, SHE STATES SHE WILL VISIT PT THIS AFTERNOON.
--- NOTE | 2020-08-31 15:45 | NUR ---
this DIE CUTTER OPERATOR helped patient walk into the bathroom with the walker. Patient did good with a standby assist. After using the restroom the patient walked back to the chair.
--- NOTE | 2020-08-31 16:50 | NUR ---
This NURSING STAFFING COORDINATOR took patients blood sugar and did a set of vitals.
--- NOTE | 2020-08-31 17:15 | NUR ---
IN TO GIVE PT'S EVENING MEDICATIONS. VSS. LUNG SOUNDS: BLL CRACKLES, BUL CLEAR, NO CHANGE. PT DID REPORT FEELING BETTER AFTER BREATHING TX THIS AFTERNOON, SAYS BREATHING FEELS EASIER. RAC IV AND LFA IV BOTH PATENT AND FLUSHING WELL. PT HAD THE OPPOTUNITY TO SPEAK W/ ASHLY, CM THAT AFTERNOON AND IS FEELING BETTER ABOUT CURRENT SITUATION. SAYS HE STILL WOULD LIKE TO GO HOME WHEN POSSIBLE BUT IS NO LONGER UPSET ABOUT REMAINING IN HOSPITAL UNTIL CLEARED BY DR. REMAINS UP IN CHAIR. GIVEN 9 UNITS OF HUMALOG FOR BG OF 364. NOW EATING DINNER. TOLERATING REGULAR DIET AND TEXTURE WELL. CALL LIGHT IN REACH.
--- NOTE | 2020-08-31 17:18 | NUR ---
Notified by Rn Carter has questions. Called and spoke on the phone. He is concerned: 1. Leeann called and he owes a bill. He told them he was in the hospital and they were satisfied. They then called again. He would like me to call and settle this. Requested he call and check if there is still and issue, if they need documentation, to let the RN know and she can ask the Dr. to write a note the pt is in the hospital. Reminded him to get a fax number. 2. Concerned he won't be home on the day the food bank is open. Notified the hospital has a [facility] funded program for Covid pts and will contact him on dc. They will assist with food, prescriptions, transportation etc. 3. He would like a razor. Asked him to ask the nurses for this. 4. He would like me to call his friend and tell him he needs to bring his walker in. He does not want to do so as his friend is busy, running a ranch. Let him know this is something he needs to do, I can't make it sound like it's a requirement when it isn't. I then discussed with the pt, not wanting to participate in PT. Reminded he has a very short time to be here and he needs all the PT he can get. He will be going home without a cg for a few days, the more PT he does the better. He states understanding and states he will try. Encouraged him to have a good weekend and I will see him Thursday.
--- NOTE | 2020-08-31 18:00 | NUR ---
This BRICK BURNER helped patient get back into bed after he had finished dinner. Refreshed his water and covered patient in blankets.
--- NOTE | 2020-08-31 19:42 | NUR ---
report recieved. care of patient assumed at this time.
--- NOTE | 2020-08-31 20:15 | NUR ---
IN ROOM FOR ASSESSMENT AND MEDICATION ADMINISTRATION. PT CURRENTLY ON 3.5 L NC OF SUPPLEMENTAL 02, SPO2= 92 PERCENT. RESPIRATIONS EVEN BUT LABORED RR=22-24. PT DENIES FEELING SHORT OF BREATH. STATES, "DR. STAUFFER KNOWS ME,I THINK HE WILL LET ME GO HOME TOMORROW." PROVIDED PT EDUCATION ABOUT INCREASED OXYGEN NEEDS SINCE ADMISSION AND OTHER SIGNS AND SYMPTOMS OF ILLNESS. PT VOICES CONCERNS ABOUT BILLS AND WANTING TO GO HOME. FURTHER DISCUSSION ON SOCIOECONOMIC CONCERNS ADDRESSED. PT NOW UP IN CHAIR. CALL LIGHT WITHIN REACH. PLAN OF CARE FOR EVENING ESTABLISHED. DENIES FURTHER NEEDS AT THIS TIME. WILL CONTINUE TO MONITOR.
--- NOTE | 2020-08-31 20:45 | NUR ---
PT BLOOD SUGAR 421. GIVEN 11 UNITS OF HUMALOG PER SLIDING SCALE. MD UPDATED. NO NEW ORDERS AT THIS TIME.
--- NOTE | 2020-08-31 21:35 | NUR ---
in room to assist patient back to bed from chair. pt reiterated that "i don't need to be here. I feel fine. I get to have some opinion." Therapeutic communication and pt education. pt visibly tachypenic with ambulation and exertion. spo2 85 percent on 3.5 L NC after ambulating. heart rate in the high 90s. rr =26. pt now recovered, saturations at 91% at this time. call light within reach. will continue to monitor.
--- NOTE | 2020-08-31 23:27 | NUR ---
ASSESSMENT COMPLETED. PT INCONTIENT OF URINE. CARES PROVIDED. ASSISTED PT WITH REPOSITIONING IN BED. HEART RATE IN THE 90S. SPO2=92 PERCENT ON 4 L NC. RR EVEN BUT BREATHING APPEARS LABORED. PT DENIES FEELING SHORT OF BREATH. BREATH SOUNDS DIMINISHED IN THE BASES. PT STILL UNABLE TO SLEEP. CALL LIGHT WITHIN REACH. DENIES FURTHER NEEDS AT THIS TIME.
--- NOTE | 2020-09-01 00:45 | NUR ---
Pt assisted from bed to recliner. denies further needs.
--- NOTE | 2020-09-01 02:32 | NUR ---
Pt back in bed in left side laying position. breathing even and unlabored. call light within reach. no assessed needs at this time.
--- NOTE | 2020-09-01 03:10 | NUR ---
oxygen saturations at 88% on 4 l nc while pt sleeping. o2 therapy increased to 5 l nc at this time
--- NOTE | 2020-09-01 03:57 | NUR ---
pt continues to pull of NC while sleeping, saturations dropping into the mid80s. placed on 6 l om at this time. SP02 =92 percent.
--- NOTE | 2020-09-01 04:30 | NUR ---
PT PULLED OF TELEMETRY LEADS AND 02 MONITOR WHILE SLEEPING IN ROOM. ASSESSMENT COMPLETED. PT CONTINUES TO HAVE OXYGEN SATURATIONS IN THE LOW 90S ON 6 LOM. ASSISTED PT WITH REPOSITIONING AND INCONTIENT CARE. CALL LIGHT WITHIN REACH. NO FURTHER NEEDS AT THIS TIME.
--- NOTE | 2020-09-01 06:15 | NUR ---
IN ROOM TO DRAW BLOOD FOR LAB.WELL TOLERATED. PT UP IN RECLINER, ON 5 L NC OXYGEN SATURATIONS 94 PERCENT. DENIES FURTHER NEEDS AT THIS TIME.
--- NOTE | 2020-09-01 09:05 | NUR ---
IN PATIENT'S ROOM FOR THE LAST HOUR FOR ASSESSMENT, VITALS, MEDICATIONS, ATTENDS CHANGE, AND BREAKFAST. PATIENT STATES HE IS FEELING FINE. PT STATES HE DOESN'T UNDERSTAND WHY HE IS STILL IN THE HOSPITAL BECAUSE HE FEELS FINE. EDUCATION PROVIDED TO PATIENT REGARDING HIS DIAGNOSIS OF COVID, HIS WORSENING OXYGEN LEVELS, AND HIS INCREASED NEED FOR OXYGEN. PT CONTINUES TO SAY, "WELL I FEEL FINE, AND THE THERAPIST THAT WAS HERE YESTERDAY TOLD ME I WAS DOING GREAT." PATIENT THEN STARTED TO DISCUSS HIS PLANS TO LEAVE THE HOSPITAL AFTER THE WEEKEND. PATIENT STATES, "I TOLD THAT LADY DOCTOR YESTERDAY, THAT I'D BE WILLING TO STAY THROUGH THE WEEKEND, BUT COME THURSDAY, IF I'M NOT RELEASED, I'M LEAVING. I'LL CALL [facility] AND HAVE THEM COME PICK ME UP." THIS RN LISTENS TO PATIENT AND STATED THAT WE SHOULD TAKE THINGS ONE DAY AT A TIME, AND REMINDED HIM THAT HE CAN ALWAYS MAKE HIS OWN CHOICES REGARDING HIS MEDICAL CARE AND WISHES. DISCUSSED WITH PATIENT THAT HE COULD WATCH THE [facility] TOMORROW, AND PATIENT THEN STATES, "I WON'T WATCH IT. ME AND MY BEST FRIEND NELL HAVE BOTH DECIDED THAT WE WON'T WATCH IT BECAUSE THERE ARE TOO MANY WOMEN. THERE ARE 3 FEMALE REFEREES AND I WON'T WATCH IT BECAUSE OF THAT. IT'S A MAN'S SPORT, AND WOMEN SHOULDN'T BE IN IT." THIS RN POLITELY ASKED PATIENT NOT TO TALK ABOUT THIS ANY FURTHER SINCE MOST OF HIS NURESE ARE IN FACT WOMEN, AND COULD BE TAKEN OFFENSIVELY TO HEAR THIS TYPE OF COMMUNICATION. DISCUSSED PATIENT TAKING A SHOWER TODAY SINCE HE IS IN A ROOM WITHOUT A SHOWER. PATIENT DENIES AT THIS TIME BEING WILLING TO DO THIS. DISCUSSED PATIENT WORKING WITH PHYSICAL THERAPY AND HE STATES AT THIS TIME THAT HE WOULD NOT LIKE TO WORK WIHT PHYSICAL THERAPY. PATIENT STATES, "I CAN WALK AROUND JUST FINE. THE PHYSICAL THERAPIST WANTED TO TAKE ME OUT INTO THE [place] AND I CAN'T DO THAT." PATIENT REMAINS ON 5-6 L OF OXYGEN VIA NC. PT FINISHES HIS BREAKFAST AND ATTENDS ARE CHANGED, POWDER AND DESATIN APPLIED, AND THEN HELPED BACK TO BED. PT NOW RESTING ON LEFT SIDE, ON 6 L, WITH SP02 92%. HR 90-100s, AFIB. PT ABLE TO TAKE HIS MEDICATIONS WITHOUT DIFFICULTY. CBG 246 AND APPROPRIATELY COVERED WITH SS INSULIN. CONTINUE TO MONITOR. CALL LIGHT WITHIN REACH. UNABLE TO AUSCULTATE LUNGS DUE TO PAPR.
--- NOTE | 2020-09-01 10:04 | NUR ---
RT NOW IN ROOM WITH PATIENT. SP02 IS 93-95%. PATIENT REFUSED TO WORK WITH PHYSICAL THERAPY EARLIER THIS AM WHEN PHYS THERAPIST CAME TO SEE PATIENT AT 0930. PT STATES, "NO I'M RESTING RIGHT NOW, AND I'VE GOT SOME GOOD BASKETBALL GAMES TO WATCH AT NOON, SO I DON'T WANT TO WORK WITH ANY PHYSICAL THERAPY BECAUSE I WANT TO REST." PATIENT NOTED TO BE TURNING FROM RIGHT TO LEFT IN BED AND LAYING ON SIDES MUCH TOLERATED, INSTRUCTED. REMINDED PATIENT TO TRY AND AVOID LAYING ON HIS BACK FLAT DUE TO NEED TO PRONE OR SEMI PRONE MUCH POSSIBLE FOR HIS LUNGS.
--- NOTE | 2020-09-01 11:49 | NUR ---
IN PATIENT'S ROOM FOR ASSESSMENT AND VITALS. PT SITTING IN CHAIR AND WATCHING TV. PT TALKING ABOUT THE PLAN FOR THE REST OF THE DAY, INCLUDING HIM BEING SHAVED. PATIENT NOT WANTING TO EAT LUNCH, BUT WANTING TO DRINK AN ENSURE. PT AWAITING HIS FRIEND TO BRING HIM HIS WALKER, WHICH HAS HIS GLASSES AND HIS CHECKBOOK. PT EAGER TO PAY SOME BILLS. CONTINUE TO MONITOR. PT AGREEABLE TO STAY IN THE HOSPTIAL NOW UNTIL THURSDAY, AFTER DISCUSSING WITH DR. STAUFFER. PHARMACY WORKING WITH DR. STAUFFER TO INCREASE PT'S DOSE OF VERAPAMIL WHICH HE TAKES AT HOME BID. CONTINUE TO MONITOR.
--- NOTE | 2020-09-01 13:00 | NUR ---
IN ROOM TO SHAVE PT AND WASH HAIR. BRIEF'S SATURATED W/ URINE, CHANGED, GIVEN PARTIAL [place]. PT BACK IN CHAIR. VSS. CALL LIGHT IN REACH. WALKER SET OUT OF REACH PT DOES NOT ALWAYS CALL APPROPRIATELY IF WALKER IS EASILY ACCESSIBLE. INSTUCTED PT TO CALL FOR SBA ASSISTANCE FROM STAFF BEFORE AMBULATING IN ROOM.
--- NOTE | 2020-09-01 15:16 | NUR ---
PT REQUESTING TO GET INTO BED. HELPED FROM BED TO CHAIR, PT AMBULATED SBA W/ FWW. VITAL SIGNS TAKE, STABLE. COUMADIN 7.5 MG GIVEN. PHARMACY AWARE THAT LAB DRAW DONE YESTERDAY FOR PROTHROMBIN TIME. PT NOW RESTING IN BED. CALL LIGHT IN REACH.
--- NOTE | 2020-09-01 16:10 | NUR ---
IN TO TAKE PT BELONGINGS RECEIVED FROM HOME. AFTERNOON ASSESSMENT COMPLETE. BG 299, PT WILL REQUIRE 9 UNITS SS, AND 5 UNITS SCHEDULED HUMALOG W/ DINNER. LUNG SOUNDS IMPROVED, DIMINISHED IN THE BASES, NO LONGER HEARING CRACKLES. PT SATING 93-95% ON 3 L NC. WILL CONTINUE TO ATTEMPT TO WEAN. PT NOW HAS FWW FROM HOME AT BEDSIDE. SITTING UP IN CHAIR, CALL LIGHT IN REACH.
--- NOTE | 2020-09-01 17:05 | NUR ---
IN TO START NEW 22G IV IN RAC. REMDESIVIR INFUSING. EVENING MEDICATIONS GIVEN. 14 UNITS OF HUMALOG GIVEN W/ DINNER. UP IN CHAIR EATING.
--- NOTE | 2020-09-01 18:52 | NUR ---
IN TO SALINE LOCK LAC IV AFTER REMDESEVIR INFUSION COMPLETED. REMOVED RAC IV, CATH INTACT. PT UP TO THE BATHROOM AMBULATING SBA W/ FWW. TOLERATED MODERATELY WELL. BRIEFS SOAKED WITH URINE AND PT VOIDED INTO TOILET WELL. PT ENCOURAGED TO CALL WHEN HE FEELS URGE TO URINATE, PT STATES HE CANNOT FEEL URGE WE HE IS SITTING DOWN, ONLY WHEN STANDING. GROIN AREA CLEANED WELL W/ BATH WIPES AND DESITIN APPLIED. DRIBBLING NOTED. GOWN CHANGED. PT BACK TO BED. TOLERATING 3L O2 NC WELL. ESSENTIALS AT BEDSIDE AND CALL LIGHT WITHIN REACH. NO FURTHER NEEDS.
--- NOTE | 2020-09-01 19:23 | NUR ---
report recieved. care of patient assumed at this time. pt restin in bed. oxygen saturations in the mid 90s on 3 L NC. Call light within reach. denies any needs at this time.
--- NOTE | 2020-09-01 20:54 | NUR ---
MEDICATION ADMINISTRATION AND ASSESSMENT COMPLETED. PT ALERT AND ORIENTED, STATES HE IS IN A GOOD MOOD. PT OXYGEN SATURATIONS AT 95 PERCENT ON 3 L NC. FINE CRACKLES NOTED IN BOTH LUNGS BASES. RESPIRATIONS EVEN BUT LABORED, PT HAS TACHYPENIA WITH AMBULATION. INCONTINENT CARE AND SKIN CARE PROVIDED. PLAN FOR NIGHT ESTABLISHED. ALL QUESTIONS ANSWERED. CALL LIGHT WITHIN REACH. WILL CONTINUE TO MONITOR.
--- NOTE | 2020-09-01 22:30 | NUR ---
pt given a sandwich box. sitting up in bed watching television. spo2 =93 percent on 3 l nc. no further needs at this time.
--- NOTE | 2020-09-01 23:56 | NUR ---
assessment completed. Pt turning side to side while attempting to sleep spo2 = 905 on 3 l nc. incontient care provided. call light within reach. no further needs at this time.
--- NOTE | 2020-09-02 02:00 | NUR ---
pt resting in chair, breathing even and unlabored.spo2= 93 percent on 3L NC. call light within reacn. no futhre needs at this time.
--- NOTE | 2020-09-02 04:13 | NUR ---
assessment completed. pt assisted from recliner back to bed. pt visibly short of breath with exertion. oxygen saturations dropped down into the mid 80s on 3 L NC with ambulation. pt now resting on left side. oxygen increased to 5 L to maintain saturations above 90 %. incontient care provided. call light within reach. no further needs at this time.
--- NOTE | 2020-09-02 06:15 | NUR ---
blood drawn and sent to lab. well tolerated by patient. provided incontient care and assisted pt with repositioning in bed. call light within reach. no further needs at this time.
--- NOTE | 2020-09-02 07:15 | NUR ---
Report received, orders acknowledged. Patient laying on left side, respirations even and unlabored. Call light within reach.
--- NOTE | 2020-09-02 08:30 | NUR ---
Patient laying on left side, awake and alert. Vital signs taken, assessment complete. AM medications given. Patient talkative, no SOB noted while laying in bed and talking. Patient incontinent of urine, new attends in place. New gown on patient, bed linens changed. Patient on 4LNC, SpO2 of 97%. Patient up to chair with SBA and FWW. Patient steady on feet. SOB noted with activity, which resolves within a few minutes of sitting up in the chair. Breakfast delivered. Warm cloth given to patient to wash face. POC discussed for the day. Patient refuses to take a shower today stating "I refuse. I don't take them at home either. I want to have a sponge bath." Despite encouragement to take a shower, patient continues to refuse. Denies further needs, call light within reach.
--- NOTE | 2020-09-02 10:00 | NUR ---
Dr. Hewitt in room to assess patient and discuss POC
--- NOTE | 2020-09-02 10:45 | NUR ---
Physical therapy in room working with patient, who is agreeable to participate in cares today.
--- NOTE | 2020-09-02 12:15 | NUR ---
Lunch delivered, patient up to chair with FWW and SBA. Steady on feet. Water refreshed. BG of 158, 13 units of insulin given total (see MAR). IV remdesivir hung and infusing. Patient denies pain, nausea, or SOB. Call light within reach.
--- NOTE | 2020-09-02 13:30 | NUR ---
TOOK LUNCH WELL. ASSESSMNENT UNCHANGED. VERY TALKATIVE. DENIES PAIN.
--- NOTE | 2020-09-02 14:10 | NUR ---
OOB TO CHAIR WITH ASSIST. MOVING WELL WITH WALKER.
--- NOTE | 2020-09-02 16:20 | NUR ---
REMAINS IN CHAIR PER REQUEST. ASSESSMENT UNCHANGED. CONTINUE TO DENIE PAIN, SHORTNESS OF BREATH, NAUSEA. TALKING ABOUT POSSIBLE DISCHARGE ON THURSDAY. ACCUCHECK 227. PATIENT WILL RECIEVE 17 UNITS INSULIN WHEN DINNER ARRIVES. REMAINS ON O2 AT 2 L NC.
--- NOTE | 2020-09-02 17:30 | NUR ---
Patient sitting up in chair watching tv. 2LNC in place, SpO2 of 96%. PM medications given (see MAR). BG of 227, insulin given per sliding scale.
--- NOTE | 2020-09-02 18:11 | NUR ---
Patient up to toilet with FWW and SBA, steady on feet. Large, hard BM produced. Patient returned to chair to watch tv and eat meal. Denies further needs, call light within reach.
--- NOTE | 2020-09-02 20:35 | NUR ---
IN ROOM FOR EVENING MEDS AND ASSESSMENT. PT IS UP IN CHAIR, TALKATIVE AND ALERT. 2L NC SPO2 94%. ATTENDS ARE DRY AT THIS TIME. CBG 267 REQUIRING 7UNIT SS INSULIN. PT ASSISTED INTO BED. CALL LIGHT WITHIN REACH. EVENING SNACK PROVIDED. NO FURTHER NEEDS AT THIS TIME.
--- NOTE | 2020-09-02 22:22 | NUR ---
CALL LIGHT ANSWERED. PT REQUESTS PRN TYLENOL TO "HELP HIM SLEEP" AND A WARM BLANKET. PT REPOSITIONED IN BED. NO FURTHER NEEDS AT THIS TIME. CALL LIGHT WITHIN REACH.
--- NOTE | 2020-09-02 23:08 | NUR ---
pt HAD PULLED NC OUT OF NOSE. SPO2 83%. WENT IN ROOM TO REPLACE NC; SPO2 91% ON 2LNC.
--- NOTE | 2020-09-02 23:49 | NUR ---
pt CONTINUES TO REMOVE NC FROM NOSTRILS. SPO2 DROPS TO 83-84%. APPLIED OXY MASK 2L AT THIS TIME TO TRIAL.
--- NOTE | 2020-09-03 01:51 | NUR ---
pt TOLERATING OXY MASK BETTER. STILL OCCASIONALLY PULLING DOWN TOWARDS CHIN. CURRENT SPO2 93% 2L OXYMASK. pt SLEEPING WITH EVEN UNLABORED BREATHING.
--- NOTE | 2020-09-03 04:12 | NUR ---
CHECKED ON PT. PT CONTINUES TO SLEEP PEACEFULLY. WILL REPLACE OXY MASK HIMSELF. SPO2 91-94% 2L OXYMASK.
--- NOTE | 2020-09-03 06:25 | NUR ---
IN ROOM FOR ASSESSMENT AND LABS. PT STATES THAT HE FEELS "DEPRESSED TODAY AND JUST WANTS TO GO HOME". VSS. PT WAS INCONTINENT OF A LARGE AMOUNT OF URINE REQUIRING FULL BED CHANGE. PT CAN TURN HIMSELF FROM SIDE TO SIDE AND REPOSITION INDEPENDENTLY. PT REPORTS HE CAN FEEL HIS WORK OF BREATHING; PRN NEB OFFERED; PT DECLINES. SPO2 ON 2L OXYMASK 95%. HR 75-85. NO FURTHER NEEDS AT THIS TIME. CALL LIGHT WITHIN REACH.
--- NOTE | 2020-09-03 07:30 | NUR ---
Report received, orders acknowledged. Patient laying on left side of body, respirations even and unlabored. 2LNC in place, SpO2 in the upper 90's. Call light within reach.
--- NOTE | 2020-09-03 08:45 | NUR ---
Patient sitting in chair watching tv. Breakfast delivered. AM medications given, IV remdesivir hung and infusing. Assessment complete. Patient now on RA, SpO2 ranging from 92-95%. Patient denies pain or SOB. Call light within reach.
--- NOTE | 2020-09-03 09:16 | NUR ---
CENTRAL STERILE TECHNICIAN assisted pt. up to chair. pt. washed up. bed linens changed room picked up. no other needs at this time. call light within reach
--- NOTE | 2020-09-03 11:50 | NUR ---
Possible dc to home tomorrow. No change in plan, pt cont. to plan on dc to home with or without a cg. He states friend will drive him home.
--- NOTE | 2020-09-03 12:08 | NUR ---
Report given to RNDelmis. Patient transfered room 118 in chair. All patient belongings collected.
--- NOTE | 2020-09-03 12:37 | NUR ---
REPORT RECEIVED FROM CCU RN AND PT. CARE RESUMED. PT. TRANSFERRED BY CHAIR WITH ALL BELONINGS. PT. ALERT AND ORIENTED AND DENIES PAIN. BLOOD GLUCOSE WAS 286 AND HE RECEIVED 8 UNITS HUMALOG WITH MEAL AND 9 UNITS SLIDING SCALE. PT. ON RA AND O2 SAT IS 94%. BLE +2 EDEMA PRESENT. VITALS STABLE. LUNGS DIM. IN THE BASES. PT. LEFT RESTING IN CHAIR EATING LUNCH WITH CALL LIGHT IN REACH.
--- NOTE | 2020-09-03 14:30 | NUR ---
PT TRANSFERRED TO M/S RM 118. CHECKED ON PT, HE IS ASLEEP. WILL CHECK AGAIN
--- NOTE | 2020-09-03 14:58 | NUR ---
Pt moved to the medical floor. Plans on dc tomorrow.
--- NOTE | 2020-09-03 17:56 | NUR ---
PATIENT USED CALL LIGHT APPROPRIATELY FOR ASSISTANCE WITH BM. PT. FOUND ON TOILET WITH HANDS, GOWN, FLOOR COVERED IN STOOL. THIS NURSE ASSISTED WITH FECAL IMPACTION REMOVAL. PT. STOOL WAS LARGE AND HARD. SMALL SPOTS OF BLOOD IN [place] AREA. PT. ASSISTED WITH CLEANING, GOWN AND SOCK CHANGE. BLOOD GLUCOSE WAS 216 AND PT. GIVEN HUMALOG BOTH SLIDING SCALE AND SCHEDULED. PT. AMBULATED TO BED W/ AWW AND TOLERATED WELL. PT REFUSED SHOWER. HE ASKED FOR HIS SHOES, BUT COULD NOT LOCATE. WILL CHECK WITH CCU FOR SHOES.
--- NOTE | 2020-09-03 19:23 | NUR ---
REPORT RECEIVED FROM FLORIDALMA BONNER. pt SITTING ON SIDE OF BED. CALL LIGHT WITHIN REACH.
--- NOTE | 2020-09-03 21:38 | NUR ---
IN TO DO ASSESSMENT. pt DENIED PAIN AND SOB. TALKED THROUGHOUT ENTIRE VISIT. EXCITED TO GO HOME TOMORROW. MEDICATIONS GIVEN (SEE MAR). ASSESSMENT DONE. PROVIDED WATER. NO REQUESTS AT THIS TIME. CALL LIGHT WITHIN REACH.
--- NOTE | 2020-09-03 23:25 | NUR ---
CALL LIGHT ON. ASSISTED pt TO PUT UP FOOT REST. NO FURTHER REQUESTS AT THIS TIME. CALL LIGHT WITHIN REACH.
--- NOTE | 2020-09-04 00:03 | NUR ---
CALL LIGHT ON. pt REQUESTED ASSISTANCE PLUGGING IN HIS PHONE. DONE. CALL LIGHT WITHIN REACH. NO FURTHER REQUESTS AT THIS TIME.
--- NOTE | 2020-09-04 02:46 | NUR ---
ROUNDED ON pt. RESTING IN BED WITH EYES CLOSED, RESPIRATIONS REGULAR AND UNLABORED. CALL LIGHT WITHIN REACH.
--- NOTE | 2020-09-04 04:46 | NUR ---
ROUNDED ON pt. RESTING IN BED WITH EYES CLOSED, RESPIRATIONS REGULAR AND UNLABORED. CALL LIGHT WITHIN REACH.
--- NOTE | 2020-09-04 05:45 | NUR ---
IN TO DO LAB DRAW AND ASSESSMENT. pt WOKE TO VOICE, STATED "I MUST HAVE GOTTEN SOME SLEEP." PLEASANT. NO CHANGES IN ASSESSMENT. VITALS AND I&O RECORDED. LAB DRAW DONE. PROVIDED FRESH WATER. NO FURTHER REQUESTS AT THIS TIME. CALL LIGHT WITHIN REACH.
--- NOTE | 2020-09-04 07:26 | NUR ---
REPORT RECEIVED FROM FLORIDALMA MONTANEZ. PT RESTING IN BED ON LEFT SIDE WITH EYES CLOSED. RESPIRATIONS EVEN AND UNLABORED. HEAD OF BED ELEVATED TO 20 DEGREES. BED RAILS UP. CALL LIGHT WITHIN REACH. PT ALLOWED TO REST.
--- NOTE | 2020-09-04 08:07 | NUR ---
MORNING ASSESSMENT AND MEDICATION DUE. THIS RN TO ROOM. PT AWAKE AND RESTING IN BED. PT DECLINES TIME UP TO CHAIR AT THIS TIME STATING "I'LL GET UP ARROUND 9." PT DENIES PAIN AND NAUSEA. VITAL SIGNS STABLE WITH OXYGEN SATURATION OF 97% ON ROOM AIR. PT DEMONSTRATES USE OF CORNET AND I.S. REACHING 1250ML. PT FORGETFUL BUT ORIENTED TO ALL, PT ANSWERING QUESTIONS APPROPRIATLY AND VERY TALKITIVE THIS MORNING. PT UP INDEPENDANTLY TO RESTROOM WITH WALKER FROM HOME. PT CHANGES HIS OWN BREIFS. BED SATURATED WITH URINE AND ACTIVE LEAKING URINE WITH ABULATION AND ACTIVITY. NEHEMIAH CARE DONE, BARRIER CREAM, DETSITIN AND MICONAZOLE POWDER APPLIED. RIGHT LOWER EXTREMITY NOTED TO BE RED AND WARM TO TOUCH WITH +2 EDEMA. LEFT LOWER EXTREMITY/FOOT COOL TO TOUCH WITH +1 EDEMA. BED LINENS CHANGED. PT UP TO CHAIR EATING BREAKFAST. MEDICATIONS GIVEN (SEE MAR). PT DENIES ADDITIONAL REQUESTS OR COMPLAINTS. CALL LIGHT TONI DSOUZA. FERN AT BEDSIDE WORKING WITH PT.
--- NOTE | 2020-09-04 09:30 | NUR ---
Spoke with Carter. He denies needs. Friend, Davidson will pick him up and take him home today. Caregiver will return to work tomorrow. Pt ordered groceries on line with his food stamps from the local store in [place] and they will deliver to his front step. He contacted the local food bank which distributes food on . They agreed to bring him his box food to his door step. Pt is off of . We discussed HH and I will send his chart to [facility]. I spoke with Maria Esther there, they will admit him tomorrow.
[2020-09-04] MEDS ORDERED: WARFARIN SODIUM6 MG PO (10:07)
[2020-09-04] MEDS ORDERED: DEXAMETHASONE6 MG PO (10:08)
--- NOTE | 2020-09-04 10:40 | NUR ---
PT READY FOR DISCHRAGE. PT DRESSED, VITALS SIGNS STABLE. PTS BELONGINGS PACK. PHARMACY TO BEDSIDE TO REVIEW MEDICATIONS WITH PT. PT VERBALIZES UNDERSTANDING OF MEDIATIONS AND STATES HIS QUESTIONS HAVE BEEN ANSWERED. DISCHARGE INSTRUCTIONS REVIEWED WITH PT. PT VERBALIZES UNDERSTANDING OF INSTRUCTIONS, MEDICATION, FOLLOW UP APPOINTMENTS AND LABS. PT TRANSFERS SELF TO WHEELCHAIR WITH FRONT WHEEL WALKER. NO ADDITIONAL REQUESTS OR CONCERNS. PT WHEELED FROM MED/SURG UNIT WITH BELONGINGS.
--- NOTE | 2020-09-04 11:43 | NUR ---
FAce sheet, orders, DC summary,Covid test faxed [facility] per pt's request. Called and spoke with Maria Esther, she is aware from of the pt. as she discussed with Jama last week. She can admit pt tomorrow.
--- NOTE | 2020-09-04 11:52 | NUR ---
PT DRESSED, SITTING ON SIDE OF BED WAITING FOR FLORIDALMA HAJI TO FINISH DC INS. PT SAID HE IS READY, HAS HIS GOOD FRIEND COMING TO PICK HIM UP. GAVE PT SOME ENCOURAGEMENT AND BLESSING.
--- NOTE | 2020-09-04 16:57 | NUR ---
RECEIVED MESSAGE FROM PATIENT TODAY VIA PHONE AT 0915. HE STATED HE WANTED HOME HEALTH TO COME BY TODAY AND MOVE SOME BOXES OF FOOD HE HAD DELIVERED AND RUN A ERRAND FOR HIM. I SPOKE WITH PLANS EXAMINER ASHLY HEDRICK WHO STATES SHE DISCUSSED WITH HIM WHAT HOME HEALTH PROVIDES AND DOES. SHE ALSO STATES HIS FRIEND WHO WAS TAKING HIM HOME WAS SUPPOSED TO HELP HIM. I CALLED PATIENT BACK AND SPOKE WITH HIM. HE HAD LEFT HIS CELL PHONE NUMBER [phone]. I DISCUSSED WITH HIM THAT HOME HEALTH DOES NOT DO ERRANDS. ASKED WHY HIS FRIEND DIDN'T TAKE THE BOXES IN, HE STATES "HE HAD TO GET BACK TO THE [employer] TO WORK". PATIENT STATES HE ENDED UP BRINGING THE BOXES IN HIMSELF. HE STATES "I PROBABLY SHOULDN'T HAVE BUT I DIDN'T WANT THEM GETTING STOLEN". ASKED WHEN HIS CAREGIVER WAS COMING. HE STATES SHE WAS SUPPOSED TO COME TOMORROW BUT SHE CALLED HIM AND SAID SHE CAN'T COME FOR ANOTHER WEEK. ASKED IF HE STILL WANTED TO STAY HOME, HE WAS ADAMANT HE DOES. I DISCUSSED I WILL HAVE CHW CALL HIM TOMORROW TO SEE IF ANY RESOURCES CAN HELP HIM. HE IS AGREEABLE TO THIS. I ASKED IF HE PICKED UP HIS PRESCRIPTIONS. HE STATES THEY DID NOT GO TO THE PHARMACY, BUT THE ONLY MEDICATION HE DOESN'T HAVE IS "A CONSTIPATION MEDICINE" AND STATES HE DIDN'T NEED IT TODAY. I TOLD HIM OUR CHW CAN HELP WITH GETTING MEDS PICKED UP. HE FEELS HE UNDERSTANDS WHICH PILLS HE TAKES TONIGHT AND HAS THEM WITH HIM. WE DISCUSSED THE HOME HEALTH RN WILL BE HELPING SET HIS MEDS UP AND WE HOPE SHE WILL BE THERE TOMORROW. NO FURTHER QUESTIONS AT THIS TIME.
[2020-09-19] MEDS ORDERED: ONDANSETRON ODT8 MG PO (09:22)
[2020-09-25] MEDS ORDERED: JANTOVEN6 MG PO (10:35)
[2020-09-28] MEDS ORDERED: SULFAMETHOXAZO1 EAC1 PO (11:08)
[2020-09-28] MEDS ORDERED: HUMALOG100 UNITS/ SUB-Q (11:10)
== END 2020-09-04 10:55 | disposition home health service (06) | DRG 177 ==
LOC: ED 11:08 → CCU 11:09 → MS 09-03 12:00
PROVIDERS: ADMIT Student in an Organized Health Care Education/Training Program; ATTEND Student in an Organized Health Care Education/Training Program
PROC: XW033E5 Introduction of Remdesivir Anti-infective into Peripheral Vein, Percutaneous Approach, New Technology Group 5 (ICD-10-PCS; principal; 2020-09-01)
DX: U07.1 COVID-19 (principal); J96.01 Acute respiratory failure with hypoxia; J12.82 Pneumonia due to coronavirus disease 2019; G93.41 Metabolic encephalopathy; N30.00 Acute cystitis without hematuria; I48.21 Permanent atrial fibrillation; Z68.41 Body mass index [BMI] 40.0-44.9, adult; B96.20 Unspecified Escherichia coli [E. coli] as the cause of diseases classified elsewhere; G25.81 Restless legs syndrome; I10 Essential (primary) hypertension; E11.9 Type 2 diabetes mellitus without complications; K21.9 Gastro-esophageal reflux disease without esophagitis; E66.01 Morbid (severe) obesity due to excess calories; G89.4 Chronic pain syndrome; E87.6 Hypokalemia; K59.09 Other constipation; Z88.8 Allergy status to other drugs, medicaments and biological substances; Z88.5 Allergy status to narcotic agent; Z86.73 Personal history of transient ischemic attack (TIA), and cerebral infarction without residual deficits; Z79.899 Other long term (current) drug therapy; Z79.01 Long term (current) use of anticoagulants; Z79.4 Long term (current) use of insulin
CPT/HCPCS: 70450; 71045; 80048; 80053; 81001; 83036; 83605; 83735; 83880; 84484; 85025; 85610; 87040; 87077; 87088; 87186; 92610; 93005; 93010; 94640; 94668; 96365; 96375; 96376; 97110; 97116; 97162; 99285-25; C9803; J0456; J0696; J1100; J1815; J1940; J2405; J2550; J3475; J3480; J7050; J7060; J8540; U0003

== ENCOUNTER 2020-09-08 20:23 | Emergency (ER) | payer MEDICARE, OTHER ==
[~2020-09-08] VITALS: Ht 167.6 cm; Wt 120.5 kg
[~2020-09-08 20:23] MED LIST changes: +DEXAMETHASONE6 MG PO; +NEURONTIN300 MG PO
--- OUTSIDE RECORDS SUMMARY | 2020-09-08 20:26 | XMS ---
PreManage Notification: FRED BAJWA Security Reel Man Events No recent Security Events currently on file CRITERIA MET - 6 ED Visits in 6 Months - ED - Positive COVID-19 Lab Result - COA - [facility] - 2 Visits in 30 Days CARE PROVIDERS MECHE VILLARREAL [facility] 11/01/2018-Current PHONE: [phone] Lindsey Vega Potato Grader/Supervisor Production Managing 08/27/2020-Current PHONE: [phone] Meet has no Care Guidelines for this patient. Care History Medical/Surgical 06/27/2019 [facility] - PATIENT HAS AN APT WITH DR VILLARREAL FOR ER FOLLOW UP ON 06/29/19. EStefano VISIT COUNT (12 MO.) 7 [facility] TOTAL 7 NOTE: Visits indicate total known visits. ED/UCC VISIT TRACKING (12 MO.) 09/08/2020 20:[address] [facility] [place] TYPE: Emergency COMPLAINT: - WEAKNESS, SHORTNESS OF BREATH 08/24/2020 11:[address] [facility] [place] TYPE: Emergency COMPLAINT: - HEADACHE, COUGH 08/14/2020 10:43 [facility] [place] TYPE: Emergency COMPLAINT: - HEARTBURN, DIFFICULTY BREATHING 07/22/2020 21:05 [facility] [place] TYPE: Emergency COMPLAINT: - SHORTNESS OF BREATH DIAGNOSES: - Heart failure, unspecified - Unspecified atrial fibrillation - Gastro-esophageal reflux disease without esophagitis - Allergy status to other drugs, medicaments and biological substances - senior living (current) use of anticoagulants - Allergy status to narcotic agent - Other senior living (current) drug therapy - Allergy status to narcotic agent - Type 2 diabetes mellitus without complications - senior living (current) use of insulin - Allergy status to other drugs, medicaments and biological substances - Hypertensive heart disease with heart failure - Chest pain, unspecified - Other microscopic hematuria 07/15/2020 16:21 [facility] [place] TYPE: Emergency COMPLAINT: - WEAKNESS, SHORTNESS OF BREATH 05/11/2020 17:43 [facility] [place] TYPE: Emergency COMPLAINT: - BLOOD IN STOOL DIAGNOSES: - Residual hemorrhoidal skin tags - Other senior living (current) drug therapy - long term care social worker (current) use of insulin - Heart failure, unspecified - Allergy status to narcotic agent - Melena - long term care social worker (current) use of anticoagulants - Allergy status to other drugs, medicaments and biological substances - Hypertensive heart disease with heart failure - Gastro-esophageal reflux disease without esophagitis - Allergy status to narcotic agent - Allergy status to other drugs, medicaments and biological substances - Unspecified atrial fibrillation 04/06/2020 19:51 [facility] [place] TYPE: Emergency COMPLAINT: - SOB DIAGNOSES: - Syncope and collapse - Allergy status to narcotic agent - Other senior living (current) drug therapy - Allergy status to other drugs, medicaments and biological substances - long term care social worker (current) use of insulin - Type 2 diabetes mellitus without complications - Shortness of breath - Personal history of nicotine dependence - long term care social worker (current) use of anticoagulants - Gastro-esophageal reflux disease without esophagitis - Unspecified atrial fibrillation - Essential (primary) hypertension INPATIENT VISIT TRACKING (12 MO.) 08/26/2020 10:22 [facility] [place] TYPE: Medical Surgical COMPLAINT: - UTI, AFIB DIAGNOSES: - Body mass index [BMI]40.0-44.9, adult - Acute cystitis without hematuria - Personal history of transient ischemic attack (TIA), and cerebral infarction without residual deficits - senior living (current) use of anticoagulants - Metabolic encephalopathy - Chronic pain syndrome - Acute respiratory failure with hypoxia - Permanent atrial fibrillation - Other senior living (current) drug therapy - Other senior living (current) drug therapy - Permanent atrial fibrillation - Metabolic encephalopathy - long term care social worker (current) use of insulin - senior living (current) use of anticoagulants - Type 2 diabetes mellitus without complications - Unspecified Escherichia coli [E. coli] as the cause of diseases classified elsewhere - Allergy status to narcotic agent - Other constipation - Hypokalemia - Essential (primary) hypertension - Type 2 diabetes mellitus without complications - Essential (primary) hypertension - Restless legs syndrome - Restless legs syndrome - Other constipation - Gastro-esophageal reflux disease without esophagitis - Morbid (severe) obesity due to excess calories - Body mass index [BMI]40.0-44.9, adult - Unspecified Escherichia coli [E. coli] as the cause of diseases classified elsewhere - Chronic pain syndrome - Morbid (severe) obesity due to excess calories - Hypokalemia - Acute respiratory failure with hypoxia - Gastro-esophageal reflux disease without esophagitis - long term care social worker (current) use of insulin - Personal history of transient ischemic attack (TIA), and cerebral infarction without residual deficits - COVID-19 - Allergy status to narcotic agent - Acute cystitis without hematuria - Allergy status to other drugs, medicaments and biological substances - Allergy status to other drugs, medicaments and biological substances 08/14/2020 10:44 [facility] [place] TYPE: Observation COMPLAINT: - AFIB/RVR DIAGNOSES: - Personal history of other diseases of the circulatory system - 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 - Chronic atrial fibrillation, unspecified - Major depressive disorder, single episode, unspecified - long term care social worker (current) use of insulin - senior living (current) use of anticoagulants - Hypertensive heart [...] TYPE: Observation COMPLAINT: - A-FIB DIAGNOSES: - senior living (current) use of insulin - Palpitations - Constipation, unspecified - Gastro-esophageal reflux disease without esophagitis - Cough - Allergy status to narcotic agent - Unspecified atrial fibrillation - Contact with and (suspected) exposure to other viral communicable diseases - Allergy status to narcotic agent - Allergy status to other drugs, medicaments and biological substances - Unspecified osteoarthritis, unspecified site - Other senior living (current) drug therapy - senior living (current) use of anticoagulants - Type 2 diabetes mellitus without complications - Allergy status to other drugs, medicaments and biological substances - Acquired absence of other specified parts of digestive tract - Heart failure, unspecified - Hypertensive heart disease with heart failure [email or web address]
[2020-09-08] MEDS ORDERED: LEVOFLOXACIN750 MG PO (22:38)
--- NOTE | 2020-09-09 12:32 | EKG ---
[facility] [address] [facility] [place], [place] [address] Signed Atrial fibrillation Left axis deviation Inferior infarct (cited on or before 18-FEB-2019) Anterior infarct , age undetermined Abnormal ECG When compared with ECG of 24-AUG-2020 11:43, No significant change was found Confirmed by AVRIL VOGT DO ([id number]) on 09/09/2020 12:32:21 PM Electronically Signed By: AVRIL VOGT DO 09/09/20 1232 PATIENT NAME: FRED BAJWA Electrocardiogram DATE OF : 54 PHYSICIAN: AVRIL VOGT DO REPORT #: [id number] REPORT IS CONFIDENTIAL AND NOT TO BE RELEASED WITHOUT AUTHORIZATION
== END 2020-09-08 23:35 | disposition home or self-care (01) ==
LOC: ED 20:23
DX: U07.1 COVID-19 (principal); J12.82 Pneumonia due to coronavirus disease 2019; E11.65 Type 2 diabetes mellitus with hyperglycemia; T38.0X5A Adverse effect of glucocorticoids and synthetic analogues, initial encounter; I11.0 Hypertensive heart disease with heart failure; K21.9 Gastro-esophageal reflux disease without esophagitis; I48.91 Unspecified atrial fibrillation; I50.9 Heart failure, unspecified; E11.9 Type 2 diabetes mellitus without complications; Z88.8 Allergy status to other drugs, medicaments and biological substances; Z88.5 Allergy status to narcotic agent; Z79.899 Other long term (current) drug therapy; Z79.4 Long term (current) use of insulin; Z79.01 Long term (current) use of anticoagulants
CPT/HCPCS: 71045; 80053; 81001; 83735; 84484; 85025; 93005; 93010; 96374; 99285-25; J1815

== ENCOUNTER 2020-09-23 15:58 | Emergency (ER) | payer MEDICARE, OTHER ==
[~2020-09-23] VITALS: Ht 167.6 cm; Wt 120.5 kg
[~2020-09-23 15:58] MED LIST changes: +LEVOFLOXACIN750 MG PO; +ONDANSETRON ODT8 MG PO
--- OUTSIDE RECORDS SUMMARY | 2020-09-23 16:00 | XMS ---
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 Care History Medical/Surgical 06/27/2019 [facility] - PATIENT HAS AN APT WITH DR VILLARREAL FOR ER FOLLOW UP ON 06/29/19. EStefano VISIT COUNT (12 MO.) [address] [facility] TOTAL 9 NOTE: Visits indicate total known visits. ED/UCC VISIT TRACKING (12 MO.) 09/23/2020 15:[facility] [place] TYPE: Emergency COMPLAINT: - GLF, R SHOULDER PAIN 09/19/2020 06:49 [facility] [place] TYPE: Emergency COMPLAINT: - NAUSEA, VOMITING 09/08/2020 20:24 [facility] [place] TYPE: Emergency COMPLAINT: - WEAKNESS, SHORTNESS OF BREATH DIAGNOSES: - Type 2 diabetes mellitus without complications - Weakness - Gastro-esophageal reflux disease without esophagitis - Other residential (current) drug therapy - Unspecified atrial fibrillation - residential (current) use of insulin - Hypertensive heart disease with heart failure - Type 2 diabetes mellitus with hyperglycemia - Heart failure, unspecified - partition assembler (current) use of anticoagulants - Adverse effect of glucocorticoids and synthetic analogues, initial encounter - Allergy status to other drugs, medicaments and biological substances - Allergy status to narcotic agent - COVID- 08/24/2020 11:08 [facility] [place] TYPE: Emergency COMPLAINT: - HEADACHE, COUGH 08/14/2020 10:43 [facility] [place] TYPE: Emergency COMPLAINT: - HEARTBURN, DIFFICULTY BREATHING 07/22/2020 21:05 [facility] [place] TYPE: Emergency COMPLAINT: - SHORTNESS OF BREATH DIAGNOSES: - Heart failure, unspecified - Unspecified atrial fibrillation - Gastro-esophageal reflux disease without esophagitis - Allergy status to other drugs, medicaments and biological substances - partition assembler (current) use of anticoagulants - Allergy status to narcotic agent - Other manager route (current) drug therapy - Allergy status to narcotic agent - Type 2 diabetes mellitus without complications - residential (current) use of insulin - Allergy status to other drugs, medicaments and biological substances - Hypertensive heart disease with heart failure - Chest pain, unspecified - Other microscopic hematuria 07/15/2020 16:21 [facility] [place] TYPE: Emergency COMPLAINT: - WEAKNESS, SHORTNESS OF BREATH 05/11/2020 17:43 [facility] [place] TYPE: Emergency COMPLAINT: - BLOOD IN STOOL DIAGNOSES: - Residual hemorrhoidal skin tags - Other manager route (current) drug therapy - partition assembler (current) use of insulin - Heart failure, unspecified - Allergy status to narcotic agent - Melena - partition assembler (current) use of anticoagulants - Allergy status [...] Allergy status to narcotic agent - Other residential (current) drug therapy - Allergy status to other drugs, medicaments and biological substances - residential (current) use of insulin - Type 2 diabetes mellitus without complications - Shortness of breath - Personal history of nicotine dependence - residential (current) use of anticoagulants - Gastro-esophageal reflux disease without esophagitis - Unspecified atrial fibrillation - Essential (primary) hypertension INPATIENT VISIT TRACKING (12 MO.) 08/26/2020 10:22 [facility] [place] TYPE: Medical Surgical COMPLAINT: - UTI, AFIB DIAGNOSES: - Body mass index [BMI]40.0-44.9, adult - Acute cystitis without hematuria - Personal history of transient ischemic attack (TIA), and cerebral infarction without residual deficits - partition assembler (current) use of anticoagulants - Metabolic encephalopathy - Chronic pain syndrome - Acute respiratory failure with hypoxia - Permanent atrial fibrillation - Other residential (current) drug therapy - Other residential (current) drug therapy - Permanent atrial fibrillation - Metabolic encephalopathy - partition assembler (current) use of insulin - residential (current) use of anticoagulants - Type 2 [...] - Gastro-esophageal reflux disease without esophagitis - partition assembler (current) use of insulin - Personal history of transient ischemic attack (TIA), and cerebral infarction without residual deficits - COVID-19 - Allergy status to narcotic agent - Acute cystitis without hematuria - Allergy status to other drugs, medicaments and biological substances - Allergy status to other drugs, medicaments and biological substances 08/14/2020 10:[address] 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 [place] TYPE: Observation COMPLAINT: - A-FIB DIAGNOSES: - partition assembler (current) use of insulin - Palpitations - Constipation, unspecified - Gastro-esophageal reflux disease without esophagitis - Cough - Allergy status to narcotic agent - Unspecified atrial fibrillation - Contact with and (suspected) exposure to other viral communicable diseases - Allergy status to narcotic agent - Allergy status to other drugs, medicaments and biological substances - Unspecified osteoarthritis, unspecified site - Other manager route (current) drug therapy - partition assembler (current) use of anticoagulants - Type 2 diabetes mellitus without complications - Allergy status to other drugs, medicaments and biological substances - Acquired absence of other specified parts of digestive tract - Heart failure, unspecified - Hypertensive heart disease with heart failure [email or web address]
[2020-09-23] MEDS ORDERED: CEPHALEXIN500 M1 PO (20:07)
[2020-09-25] MEDS ORDERED: JANTOVEN6 MG PO (10:35)
== END 2020-09-23 21:07 | disposition home or self-care (01) ==
LOC: ED 15:58
DX: S46.911A Strain of unspecified muscle, fascia and tendon at shoulder and upper arm level, right arm, initial encounter (principal); E83.52 Hypercalcemia; N39.0 Urinary tract infection, site not specified; W18.30XA Fall on same level, unspecified, initial encounter; I11.0 Hypertensive heart disease with heart failure; K21.9 Gastro-esophageal reflux disease without esophagitis; I50.9 Heart failure, unspecified; I48.91 Unspecified atrial fibrillation; E11.9 Type 2 diabetes mellitus without complications; Z88.8 Allergy status to other drugs, medicaments and biological substances; Z88.5 Allergy status to narcotic agent; Z79.899 Other long term (current) drug therapy; Z79.4 Long term (current) use of insulin
CPT/HCPCS: 70450; 71045; 73060; 80048; 80053; 81001; 84484; 85025; 85610; 87077; 87088; 87186; 96365; 99284-25; J0696; J7030